=== PATIENT | female | born 1970 | race Caucasian/White ===

== ENCOUNTER 2022-11-30 15:15 | Outpatient (OUT) | payer BC, SELFPAY ==
--- NOTE | 2022-11-30 | XR_ITS ---
The [address] [address] Patient Name: SEVERINO GREER MRN: [id number] date: 1970 Sex: F Assigned Patient Location: [facility] Current Patient Location: [facility] Accession/Order Number: [id number] Exam Date: 11/30/2022 15:35 Report Date: 11/30/2022 16:55 At the request of: TRACIE MALONE Procedure: XR foot LT min 3V EXAM: XR foot LT min 3V HISTORY: left foot pain; M79.672 COMPARISON: None. TECHNIQUE: 3 views of the left foot were obtained. FINDINGS: There is some a subtle nondisplaced fracture involving the neck of the fourth metatarsal bone. There is no other evidence of an acute fracture or dislocation. Is mild narrowing of the first metatarsophalangeal joint and the remainder the joint spaces are relatively intact. No abnormal soft tissue calcification or radiopaque foreign body is identified. IMPRESSION: There appears to be a nondisplaced fracture involving the neck of the fourth metatarsal bone. There is no other evidence of a fracture or dislocation. Mild degenerative changes are seen at the first metatarsophalangeal joint. Remainder the joint spaces are intact. Electronically authenticated by: EUN GILES Date: 11/30/2022 16:55
== END 2022-11-30 15:16 | disposition home or self-care (01) ==
LOC: RAD 15:21
PROVIDERS: PCP Family Medicine; Visit Provider Family Medicine
DX: M79.672 Pain in left foot (principal); S92.345A Nondisplaced fracture of fourth metatarsal bone, left foot, initial encounter for closed fracture
CPT/HCPCS: 73630

== ENCOUNTER 2022-12-08 13:41 | Outpatient (OUT) | payer BC, SELFPAY ==
--- NOTE | 2022-12-08 | XR_ITS ---
The [address] [address] Patient Name: SEVERINO GREER MRN: [id number] date: 1970 Sex: F Assigned Patient Location: Current Patient Location: Accession/Order Number: [id number] Exam Date: 12/08/2022 13:05 Report Date: 12/09/2022 07:18 At the request of: MADHU MANDUJANO Procedure: XR foot LT min 3V PROCEDURE: XR foot LT min 3V COMPARISON: 11/30/2022 HISTORY: LEFT FOOT PAIN FINDINGS: BONES:Calcification of periosteal reaction surrounding the previously identified fourth metatarsal neck fracture. No change in angulation or distraction. No new fracture or dislocation. SOFT TISSUES:Negative. No visible soft tissue swelling. EFFUSION:None visible. OTHER: Negative. IMPRESSION: Stable healing fracture fourth metatarsal neck Electronically authenticated by: LIZZETH BLACKBURN Date: 12/09/2022 07:18
== END 2022-12-08 13:42 | disposition home or self-care (01) ==
LOC: WC 13:41
PROVIDERS: PCP Family Medicine; Visit Provider Physician Assistant
DX: M79.672 Pain in left foot (principal)
CPT/HCPCS: 73630

== ENCOUNTER 2023-01-03 08:42 | Outpatient (OUT) | payer BC, SELFPAY ==
--- NOTE | 2023-01-03 08:46 | XR_ITS ---
[address] [address] Patient Name: SEVERINO GREER MRN: [id number] date: 1970 Sex: F Assigned Patient Location: [facility] Current Patient Location: [facility] Accession/Order Number: [id number] Exam Date: 01/03/2023 09:00 Report Date: 01/03/2023 09:56 At the request of: TRACIE MALONE Procedure: XR DEXA axial skeleton EXAMINATION: XR DEXA axial skeleton, 01/03/2023 9:00 AM EDT HISTORY: Primary Ovarian Failure E28.39 COMPARISON: None. TECHNIQUE: Dual-energy X-ray absorptiometry (DEXA) bone density study performed for the axial skeleton. HISTORY: Primary Ovarian Failure E28.39 FINDINGS: Bone mineral density AP spine L1-L4 measures 1.068 g/sq cm. T score -0.9. WHO classification: Normal Lowest bone mineral density is in the right femoral trochanter measuring 0.644 g/sq cm. T score -1.8. WHO classification: Osteopenia XR/XR DEXA axial skeleton IMPRESSION: Osteopenia. Moderate fracture risk Electronically authenticated by: LIZZETH BLACKBURN Date: 01/03/2023 09:56
== END 2023-01-03 08:43 | disposition home or self-care (01) ==
LOC: RAD 08:42
PROVIDERS: PCP Family Medicine; Visit Provider Family Medicine
DX: E28.39 Other primary ovarian failure (principal); M85.851 Other specified disorders of bone density and structure, right thigh
CPT/HCPCS: 77080

== ENCOUNTER 2023-01-04 14:08 | Outpatient (OUT) | payer BC, SELFPAY ==
--- NOTE | 2023-01-04 14:13 | XR_ITS ---
The [address] [address] Patient Name: SEVERINO GREER MRN: [id number] date: 1970 Sex: F Assigned Patient Location: [facility] Current Patient Location: Accession/Order Number: [id number] Exam Date: 01/04/2023 14:13 Report Date: 01/05/2023 06:31 At the request of: EUN DONOVAN Procedure: XR foot LT min 3V PROCEDURE: XR foot LT min 3V HISTORY: LEFT FOOT PAIN ; follow-up fourth metatarsal fracture COMPARISON: XR foot left 12/08/2022 FINDINGS: BONES:Prominent callus formation surrounding the neck of the fourth metatarsal which remains in normal alignment. Minimal residual fracture line. SOFT TISSUES:No visible soft tissue swelling. EFFUSION:None visible. OTHER: Negative. XR/XR foot LT min 3V IMPRESSION: 1. Stable alignment and ongoing bone healing of the fourth metatarsal fracture. Electronically authenticated by: VINCENT SHIRLEY Date: 01/05/2023 06:31
== END 2023-01-04 14:09 | disposition home or self-care (01) ==
LOC: RAD 14:09
PROVIDERS: PCP Family Medicine; Visit Provider Podiatrist Foot & Ankle Surgery
DX: S92.345A Nondisplaced fracture of fourth metatarsal bone, left foot, initial encounter for closed fracture (principal)
CPT/HCPCS: 73630

== ENCOUNTER 2023-01-17 14:25 | Outpatient (OUT) | payer BC, SELFPAY ==
--- NOTE | 2023-01-17 14:32 | XR_ITS ---
The [address] [address] Patient Name: SEVERINO GREER MRN: [id number] date: 1970 Sex: F Assigned Patient Location: [facility] Current Patient Location: Accession/Order Number: [id number] Exam Date: 01/17/2023 14:52 Report Date: 01/18/2023 05:14 At the request of: EMANUEL CALDERÓN Procedure: XR foot LT min 3V PROCEDURE: XR foot LT min 3V HISTORY: M79.672 ; acute first toe and second metatarsal pain; no known injury; subacute fracture of fourth metatarsal COMPARISON: XR foot left 01/04/2023 FINDINGS: BONES:Prominent callus formation surrounding the neck of the fourth metatarsal at site of prior nondisplaced fracture. Unremarkable first toe and second metatarsal were patient describes pain. No significant degenerative joint disease. SOFT TISSUES:No visible soft tissue swelling. EFFUSION:None visible. OTHER: Negative. XR/XR foot LT min 3V IMPRESSION: 1. No acute or suspicious findings to account for patient's symptoms. 2. Continuing bone healing of prior fourth metatarsal fracture. Electronically authenticated by: VINCENT SHIRLEY Date: 01/18/2023 05:14
== END 2023-01-17 14:26 | disposition home or self-care (01) ==
LOC: RAD 14:29
PROVIDERS: PCP Family Medicine; Visit Provider Nurse Practitioner Family
DX: M79.672 Pain in left foot (principal)
CPT/HCPCS: 73630

== ENCOUNTER 2023-01-24 14:29 | Outpatient (OUT) | payer BC, SELFPAY ==
[2023-01-24 15:00] LABS: Basophils Absolute Auto 0.1 10^3/uL (0.0-0.1); Basophils Percent Auto 1.1 % (0.2-2.0); Eosinophils Absolute Auto 0.1 10^3/uL (0.0-0.7); Eosinophils Percent Auto 1.4 % (0.9-7.0); Hematocrit 45.6 % (36.0-48.0); Immature Granulocytes Pct Auto 1.1 % (0.0-0.5); Lymphocytes Absolute Auto 2.7 10^3/uL (1.2-3.8); Mean Corpuscular HGB Conc 32.9 g/dL (29.9-35.2); Mean Corpuscular Hemoglobin 30.9 pg (26.7-34.0); Mean Platelet Volume 9.7 fL (9.5-13.5); Monocytes Absolute Auto 0.5 10^3/uL (0.3-0.8); Monocytes Percent Auto 6.1 % (1.7-12.0); Neutrophils Absolute Auto 5.2 10^3/uL (1.4-6.5); Neutrophils Percent Auto 59.3 % (43.0-75.0); Platelet Count 367 10^3/uL (150-450); Red Blood Count 4.85 10^6/uL (4.20-5.40); Red Cell Distribution Width 12.6 % (11.0-15.0); White Blood Count 8.8 10^3/uL (4.0-11.0)
[2023-01-24 15:04] LABS: Alanine Aminotransferase 83 U/L (14-59); Albumin Globulin Ratio 1.1; Albumin Level 4.5 g/dL (3.4-5.0); Alkaline Phosphatase 143 U/L (46-116); Anion Gap 15.4; Aspartate Amino Transferase 74 U/L (15-37); BUN Creatinine Ratio 21.6; Bilirubin Total 0.3 mg/dL (0.2-1.0); Calcium 9.5 mg/dL (8.5-10.1); Carbon Dioxide 27.2 mmol/L (21.0-32.0); Chloride 99 mmol/L (98-107); Estimated GFR (African America >60 (>=60); Estimated GFR (Non-African Ame >60 (>=60); Glucose 121 mg/dL (74-106); Potassium 4.6 mmol/L (3.5-5.1); Sodium 137 mmol/L (136-145); Total Protein 8.5 g/dL (6.4-8.2); Uric Acid 6.5 mg/dL (2.6-6.0)
[2023-01-24 15:38] LABS: Erythrocyte Sedimentation Rate 20 mm/hr (<=30)
== END 2023-01-24 14:30 | disposition home or self-care (01) ==
LOC: LAB 14:31
PROVIDERS: PCP Family Medicine; Visit Provider Family Medicine
DX: M10.9 Gout, unspecified (principal)
CPT/HCPCS: 36415; 80053; 84550; 85025; 85652

== ENCOUNTER 2023-01-30 07:33 | Outpatient (OUT) | payer BC, SELFPAY ==
[2023-01-30 08:03] LABS: Ammonia 18 umol/L (11-32)
[2023-01-30 08:09] LABS: INR 0.97; Prothrombin Time 10.3 sec (9.0-11.6)
[2023-01-30 08:36] LABS: Alanine Aminotransferase 71 U/L (14-59); Albumin Globulin Ratio 1.1; Alkaline Phosphatase 115 U/L (46-116); Aspartate Amino Transferase 25 U/L (15-37); Bilirubin Direct 0.1 mg/dL (0.0-0.2); Bilirubin Total 0.5 mg/dL (0.2-1.0); Globulin 3.7 g/dL; Total Protein 7.7 g/dL (6.4-8.2)
[2023-01-31 05:07] LABS: HBsAg Screen Negative (Negative); HCV Ab Non Reactive (Non Reactive); Hep A Ab, IgM Negative (Negative); Hep B Core Ab, IgM Negative (Negative)
== END 2023-01-30 07:34 | disposition home or self-care (01) ==
LOC: LAB 07:34
PROVIDERS: PCP Family Medicine; Visit Provider Family Medicine
DX: R79.89 Other specified abnormal findings of blood chemistry (principal)
CPT/HCPCS: 36415; 80074; 80076; 82140; 85610; 85730

== ENCOUNTER 2023-12-18 16:14 | Outpatient (OUT) | payer BC, SELFPAY ==
--- NOTE | 2023-12-18 16:22 | XR_ITS ---
The [address] [address] Patient Name: SEVERINO GREER MRN: [id number] date: 1970 Sex: F Assigned Patient Location: [facility] Current Patient Location: Accession/Order Number: [id number] Exam Date: 12/18/2023 16:22 Report Date: 12/19/2023 13:33 At the request of: TRACIE MALONE Procedure: XR foot RT 2V PROCEDURE: XR foot RT 2V COMPARISON: None. HISTORY: Right foot pain M79.671 FINDINGS: BONES:No acute fracture or dislocation. Moderate to severe degenerative changes first metatarsal-phalangeal joint and fifth proximal interphalangeal joint SOFT TISSUES:Negative. No visible soft tissue swelling. EFFUSION:None visible. OTHER: Negative. XR/XR foot RT 2V IMPRESSION: Moderate to severe osteoarthritis first metatarsal-phalangeal and fifth proximal interphalangeal joints Electronically authenticated by: LIZZETH BLACKBURN Date: 12/19/2023 13:33
== END 2023-12-18 16:15 | disposition home or self-care (01) ==
LOC: RAD 16:16
PROVIDERS: PCP Family Medicine; Visit Provider Family Medicine
DX: M79.671 Pain in right foot (principal); M19.071 Primary osteoarthritis, right ankle and foot
CPT/HCPCS: 73620

== ENCOUNTER 2023-12-27 14:26 | Outpatient (OUT) | payer BC, SELFPAY ==
--- NOTE | 2023-12-27 | XR_ITS ---
The [address] [address] Patient Name: SEVERINO GREER MRN: [id number] date: 1970 Sex: F Assigned Patient Location: Current Patient Location: Accession/Order Number: [id number] Exam Date: 12/27/2023 14:26 Report Date: 12/28/2023 07:42 At the request of: EUN DONOVAN Procedure: XR foot RT min 3V PROCEDURE: XR foot RT min 3V COMPARISON: 12/18/2023 HISTORY: RIGHT FOOT PAIN FINDINGS: BONES:No acute fracture or dislocation. Progression of degenerative osteoarthritis with [id number] articulation and remodeling of the first metatarsal-phalangeal joint. Degenerative change also noted at the fifth proximal interphalangeal joint SOFT TISSUES:Negative. No visible soft tissue swelling. EFFUSION:None visible. OTHER: Negative. XR/XR foot RT min 3V IMPRESSION: Severe first metatarsal-phalangeal joint osteoarthritis Electronically authenticated by: LIZZETH BLACKBURN Date: 12/28/2023 07:42
== END 2023-12-27 14:27 | disposition home or self-care (01) ==
LOC: EC 14:26
PROVIDERS: PCP Family Medicine; Visit Provider Podiatrist Foot & Ankle Surgery
DX: M79.671 Pain in right foot (principal); M19.071 Primary osteoarthritis, right ankle and foot
CPT/HCPCS: 73630

== ENCOUNTER 2024-02-23 14:29 | Outpatient (OUT) | payer BC, SELFPAY ==
--- NOTE | 2024-02-23 14:36 | XR_ITS ---
The [address] [address] Patient Name: SEVERINO GREER MRN: [id number] date: 1970 Sex: F Assigned Patient Location: [facility] Current Patient Location: [facility] Accession/Order Number: [id number] Exam Date: 02/23/2024 14:40 Report Date: 02/26/2024 15:42 At the request of: TRACIE MALONE Procedure: XR cervical spine 2-3V EXAMINATION: XR cervical spine 2-3V HISTORY: Cervical radiculopathy 54.12 COMPARISON: No relevant comparison available. FINDINGS: BONES: 2 mm retrolisthesis of C5. Moderate spondylosis and facet osteoarthropathy DISC SPACES: Disc collapse C5-C6 PARASPINOUS: Negative. No paraspinous abnormality is seen. OTHER: Negative. XR/XR cervical spine 2-3V IMPRESSION: Moderate degenerative changes with retrolisthesis of C5 Electronically authenticated by: LIZZETH BLACKBURN Date: 02/26/2024 15:42
--- NOTE | 2024-02-23 14:36 | XR_ITS ---
The [address] [address] Patient Name: SEVERINO GREER MRN: [id number] date: 1970 Sex: F Assigned Patient Location: [facility] Current Patient Location: [facility] Accession/Order Number: [id number] Exam Date: 02/23/2024 14:40 Report Date: 02/28/2024 06:20 At the request of: TRACIE MALONE Procedure: XR shoulder RT min 2V PROCEDURE: XR shoulder RT min 2V HISTORY: Cervical radiculopathy 54.12 ; chronic neck pain; lump on right shoulder for 2 weeks COMPARISON: None. FINDINGS: BONES:Narrowing of the acromioclavicular joint with prominent degenerative osteophyte projecting cephalad from the distal margin of the clavicle. SOFT TISSUES:Skin surface contour deformity overlying the acromioclavicular joint and marked with a skin surface marker. EFFUSION:None visible. OTHER: Negative. XR/XR shoulder RT min 2V IMPRESSION: 1. Patient's palpable lump corresponds to a large degenerative osteophyte projecting cephalad from the distal clavicle at the acromioclavicular joint. Electronically authenticated by: VINCENT SHIRLEY Date: 02/28/2024 06:20
--- OUTSIDE RECORDS SUMMARY | 2024-02-23 14:39 | XMS_ITS | CCD ---
Author Organization [facility] Care Team Providers Care Horse Racing Manager Name Role Phone DR TRACIE MARS Attending Unavailable DR TRACIE MARS Consulting Unavailable DR TRACIE MARS Primary Care Unavailable DR TRACIE MARS Admitting Unavailable Lili Eaton Unavailable Medications Current Medications Medication Drug Class(es) Dates Sig (Normalized) Sig (Original) alendronic acid 70 mg oral tablet (1 source) Bisphosphonate take 1 tablet by mouth once daily Fosamax 70 MG 1 tablet 30 minutes before the first food, beverage or medicine of the day with plain water Orally Active methylPREDNISolone 4 mg oral tablet (1 source) Corticosteroid Start: 3 methylPREDNISolone 4 MG as directed Orally Jan, Active Completed/Discontinued Medications Medication Drug Class(es) Dates Sig (Normalized) Sig (Original) amoxicillin 875 mg / clavulanate 125 mg oral tablet (1 source) Penicillin-class Antibacterial Start: 09-04-2021 take 1 tablet by mouth every twelve hours Amoxicillin-Pot Clavulanate 875-125 MG 1 tablet Orally every 12 hrs for 10 day(s) Sep, Not-Taking fluticasone propionate 0.05 mg/actuat metered dose nasal spray (1 source) Corticosteroid Start: 09-04-2021 take 2 spray(s) nasal route once daily Fluticasone Propionate 50 MCG/ACT 2 sprays Nasally Once a day for 14 day(s) Sep, Not-Taking predniSONE 20 mg oral tablet (1 source) Start: 09-04-2021 take 1 tablet by mouth every twelve hours predniSONE 20 MG 1 tablet Orally bid for 5 day(s) Sep, Not-Taking Problems Problem Classification Problem Date Documented Da te Episodic/Chronic Conditions associated with dizziness or vertigo (4 sources) Other peripheral vertigo, unspecified ear; Translations: [OTHER PERIPHERAL VERTIGO UNS EAR] Onset: 02-03-2022 Episodic Deficiency and other anemia (1 source) Anemia, unspecified; Translations: [ANEMIA UNSPECIFIED] Onset: 02-04-2022 Episodic Diabetes mellitus without complication (1 source) Other abnormal glucose; Translations: [OTHER ABNORMAL GLUCOSE] Onset: 02-04-2022 Episodic Other connective tissue disease (1 source) Pain in left foot Episodic Syncope (1 source) Syncope and collapse; Translations: [SYNCOPE AND COLLAPSE] Onset: 02-04-2022 Episodic Results Test Name Value Interpretation Reference Range Facility INSULINon 02-04-2022 Insulin 22.5 uIU/mL Normal 2.6-24.9 [facility] Comment on above: Performed By: #### I NSULIN #### [facility] [address] [place] [address] Dr. Tessa Jackson T4, T3U, FTI LABCORPon 02-04 Free Thyroxine Index 1.5 Normal 1.2-4.9 [facility] Comment on above: Performed By: #### T HYLC #### [facility] [address] [place] [address] Dr. Tessa Jackson T3 Uptake 27 % Normal 24-39 [facility] Comment on above: Performed By: #### T HYLC #### [facility] [address] [place] [address] Dr. Tessa Jackson T4 [Mass/Vol] 5.7 ug/dL Normal 4.5-12.0 [facility] Comment on above: Performed By: #### T HYLC #### [facility] [address] [place] [address] Dr. Tessa Jackson CBC AUTO DIFFon 02-03-2022 BASO # 0.0 103/ul Normal 0.0-0.1 [facility] Comment on above: Performed By: #### C BC #### [facility] [address] [place] [address] Dr. Tessa Jackson Basophils/100 WBC (Bld) 0.1 % Critically low 0.2-2.0 [facility] Comment on above: Performed By: #### C BC #### [facility] [address] [place] [address] Dr. Tessa Jackson EO # 0.0 103/ul Normal 0.0-0.7 [facility] Comment on above: Performed By: #### C BC #### [facility] [address] [place] [address] Dr. Tessa Jackson Eosinophils/100 WBC (Bld) 0.0 % Critically low 0.9-7.0 [facility] Comment on above: Performed By: #### C BC #### [facility] [address] [place] [address] Dr. Tessa Jackson Erythrocyte distribution width (RBC) [Ratio] 13.1 % Normal 11.0-15.0 [facility] Comment on above: Performed By: #### C BC #### [facility] [address] [place] [address] Dr. Tessa Jackson Hematocrit (Bld) [Volume fraction] 40.7 % Normal 36.0-48.0 [facility] Comment on above: Performed By: #### C BC #### [facility] [address] [place] [address] Dr. Tessa Jackson Hemoglobin (Bld) [Mass/Vol] 13.5 g/dL Normal 12.0-16.0 [facility] Comment on above: Performed By: #### C BC #### [facility] [address] [place] [address] Dr. Tessa Jackson IG # 0.03 10e3/ul Normal 0.00-0.03 [facility] Comment on above: Performed By: #### C BC #### [facility] [address] [place] [address] Dr. Tessa Jackson IG % 0.4 % Normal 0.0-0.5 [facility] Comment on above: Performed By: #### C BC #### [facility] [address] [place] [address] Dr. Tessa Jackson LYMPH # 1.0 103/ul Critically low 1.2-3.8 [facility] Comment on above: Performed By: #### C BC #### [facility] [address] [place] [address] Dr. Tessa Jackson Lymphocytes/100 WBC (Bld) 14.4 % Critically low 20.5-60.0 [facility] Comment on above: Performed By: #### C BC #### [facility] [address] [place] [address] Dr. Tessa Jackson MANUAL DIFF REQ NO Normal [facility] Comment on above: Performed By: #### C BC #### [facility] [address] [place] [address] Dr. Tessa Jackson MCH (RBC) [Entitic mass] 30.8 pg Normal 26.7-34.0 [facility] Comment on above: Performed By: #### C BC #### [facility] [address] [place] [address] Dr. Tessa Jackson MCHC (RBC) [Mass/Vol] 33.2 g/dL Normal 29.9-35.2 [facility] Comment on above: Performed By: #### C BC #### [facility] [address] [place] [address] Dr. Tessa Jackson MCV (RBC) [Entitic vol] 92.7 fL Normal 81.0-99.0 [facility] Comment on above: Performed By: #### C BC #### [facility] [address] [place] [address] Dr. Tessa Jackson MONO # 0.4 103/ul Normal 0.3-0.8 [facility] Comment on above: Performed By: #### C BC #### [facility] [address] [place] [address] Dr. Tessa Jackson Monocytes/100 WBC (Bld) 5.6 % Normal 1.7-12.0 [facility] Comment on above: Performed By: #### C BC #### [facility] [address] [place] [address] Dr. Tessa Jackson NEUT # 5.6 103/ul Normal 1.4-6.5 [facility] Comment on above: Performed By: #### C BC #### [facility] [address] [place] [address] Dr. Tessa Jackson Neutrophils/100 WBC (Bld) 79.5 % Critically high 43.0-75.0 [facility] Comment on above: Performed By: #### C BC #### [facility] [address] [place] [address] Dr. Tessa Jackson Platelet mean volume (Bld) [Entitic vol] 9.6 fL Normal 9.5-13.5 [facility] Comment on above: Performed By: #### C BC #### [facility] [address] [place] [address] Dr. Tessa Jackson PLT 298 103/ul Normal 150-450 [facility] Comment on above: Performed By: #### C BC #### [facility] [address] [place] [address] Dr. Tessa Jackson RBC 4.39 106/ul Normal 4.20-5.40 [facility] Comment on above: Performed By: #### C BC #### [facility] [address] [place] [address] Dr. Tessa Jackson WBC 7.1 103/ul Normal 4.0-11.0 [facility] Comment on above: Performed By: #### C BC #### [facility] [address] [place] [address] Dr. Tessa Jackson CRPon 02-03-2022 CRP [Mass/Vol] mg/L Normal <=1.0 [facility] Comment on above: Performed By: #### C MP, CRP, LIPID, TSH #### [facility] [address] [place] [address] Dr. Tessa Jackson GLYCOHEMOGLOBIN A1Con 2021 ADA RECOMMENDATION SEE BELOW Normal [facility] Comment on above: Result Comment: ADA RECOMMENDED LIMIT 4.0 - 6.0 ADA THERAPEUTIC TARGET < 7.0 ACTION SUGGESTED > 7.0 Performed By: #### A 1C #### [facility] [address] [place] [address] Dr. Tessa Jackson Glucose [Mass/Vol] 126 mg/dL Normal [facility] Comment on above: Performed By: #### A 1C #### [facility] [address] [address] [address] Tessa Jackson HbA1c (Bld) [Mass fraction] 6.0 % Normal 4.5-6.2 [facility] Comment on above: Performed By: #### A 1C #### [facility] [address] [address] [address] Tessa Jackson IRONon 02-03-2022 Iron [Mass/Vol] 92.0 ug/dL Normal 50.0-170.0 [facility] Comment on above: Performed By: #### I KATE #### [facility] [address] [address] [address] Tessa Jackson LIPID PROFILEon 02-03-2022 CHOL-HDL RATIO NORM SEE BELOW Normal [facility] Comment on above: Result Comment: 3.3 - 4.4 LOW RISK 4.4 - 7.1 AVERAGE RISK 7.1 - 11.0 MODERATE RISK >11.0 HIGH RISK Performed By: #### C MP, CRP, LIPID, TSH #### [facility] [address] [address] [address] Tessa Jackson Cholesterol [Mass/Vol] 385 mg/dL Critically high <=200 [facility] Comment on above: Performed By: #### C MP, CRP, LIPID, TSH #### [facility] [address] [address] [address] Tessa Jackson Cholesterol in HDL [Mass/Vol] 136 mg/dL Critically high 40-60 [facility] Comment on above: Performed By: #### C MP, CRP, LIPID, TSH #### [facility] [address] [address] [address] Tessa Jackson Cholesterol in LDL [Mass/Vol] 226.6 mg/dL Normal [facility] Comment on above: Performed By: #### C MP, CRP, LIPID, TSH #### [facility] [address] [address] [address] Tessa Jackson Cholesterol.total/Ch olesterol in HDL [Mass ratio] 2.8 {ratio} Normal [facility] Comment on above: Performed By: #### C MP, CRP, LIPID, TSH #### [facility] [address] [address] [address] Tessa Jackson HDL NORMAL > or = 60 mg/dl - LO W CARDIOVASCULAR RISK <40 mg/dl - HIGH CARDIOVASCULAR RISK Normal [facility] Comment on above: Performed By: #### C MP, CRP, LIPID, TSH #### [facility] [address] [address] [address] Tessa Jackson LDL CALC NORMAL SEE BELOW Normal [facility] Comment on above: Result Comment: <100 mg/dl OPTIMAL 100 - 129 mg/dl NEAR OR ABOVE OPTIMAL 130 - 159 mg/dl BORDERLINE HIGH 160 - 189 mg/dl HIGH >190 mg/dl VERY HIGH Performed By: #### C MP, CRP, LIPID, TSH #### [facility] [address] [address] [address] Tessa Jackson Triglyceride [Mass/Vol] 112 mg/dL Normal <=150 [facility] Comment on above: Performed By: #### C MP, CRP, LIPID, TSH #### [facility] [address] [address] [address] Tessa Jackson VLDL CALC 22.4 mg/dL Normal [facility] Comment on above: Performed By: #### C MP, CRP, LIPID, TSH #### [facility] [address] [address] [address] Tessa Jackson PROF 14(COMP METB)on 022 Albumin [Mass/Vol] 4.0 g/dL Normal 3.4-5.0 [facility] Comment on above: Performed By: #### C MP, CRP, LIPID, TSH #### [facility] [address] [address] [address] Tessa Jackson Albumin/Globulin [Mass ratio] 1.0 {ratio} Normal [facility] Comment on above: Performed By: #### C MP, CRP, LIPID, TSH #### [facility] [address] [place] [address] Dr. Tessa Jackson ALP [Catalytic activity/Vol] 139 U/L Critically high 46-116 [facility] Comment on above: Performed By: #### C MP, CRP, LIPID, TSH #### [facility] [address] [address] [address] Tessa Jackson ALT [Catalytic activity/Vol] 86 U/L Critically high 14-59 [facility] Comment on above: Performed By: #### C MP, CRP, LIPID, TSH #### [facility] [address] [address] [address] Tessa Jackson Anion gap [Moles/Vol] 14.8 mmol/L Normal [facility] Comment on above: Performed By: #### C MP, CRP, LIPID, TSH #### [facility] [address] [address] [address] Tessa Jackson AST [Catalytic activity/Vol] 23 U/L Normal 15-37 [facility] Comment on above: Performed By: #### C MP, CRP, LIPID, TSH #### [facility] [address] [place] [address] Dr. Tessa Jackson Bilirubin [Mass/Vol] 0.4 mg/dL Normal 0.2-1.0 [facility] Comment on above: Performed By: #### C MP, CRP, LIPID, TSH #### [facility] [address] [address] [address] Tessa Jackson Calcium [Mass/Vol] 10.0 mg/dL Normal 8.5-10.1 [facility] Comment on above: Performed By: #### C MP, CRP, LIPID, TSH #### [facility] [address] [address] [address] Tessa Jackson Chloride [Moles/Vol] 100 mmol/L Normal 98-107 [facility] Comment on above: Performed By: #### C MP, CRP, LIPID, TSH #### [facility] [address] [address] [address] Tessa Jackson CO2 [Moles/Vol] 28.0 mmol/L Normal 21.0-32.0 [facility] Comment on above: Performed By: #### C MP, CRP, LIPID, TSH #### [facility] [address] [address] [address] Tessa Jackson Creatinine [Mass/Vol] 0.95 mg/dL Normal 0.55-1.02 [facility] Comment on above: Performed By: #### C MP, CRP, LIPID, TSH #### [facility] [address] [place] [address] Dr. Tessa Jackson EGFR-AF GEORGIAN >60 Normal >=60 [facility] Comment on above: Performed By: #### C MP, CRP, LIPID, TSH #### [facility] [address] [place] [address] Dr. Tessa Jackson EGFR-NON AF GEORGIAN >60 Normal >=60 [facility] Comment on above: Performed By: #### C MP, CRP, LIPID, TSH #### [facility] [address] [place] [address] Dr. Tessa Jackson Globulin (S) [Mass/Vol] 3.9 g/dL Normal [facility] Comment on above: Performed By: #### C MP, CRP, LIPID, TSH #### [facility] [address] [place] [address] Dr. Tessa Jackson Glucose [Mass/Vol] 127 mg/dL Critically high 74-106 [facility] Comment on above: Performed By: #### C MP, CRP, LIPID, TSH #### [facility] [address] [place] [address] Dr. Tessa Jackson Potassium [Moles/Vol] 4.8 mmol/L Normal 3.5-5.1 [facility] Comment on above: Performed By: #### C MP, CRP, LIPID, TSH #### [facility] [address] [place] [address] Dr. Tessa Jackson Protein [Mass/Vol] 7.9 g/dL Normal 6.4-8.2 [facility] Comment on above: Performed By: #### C MP, CRP, LIPID, TSH #### [facility] [address] [place] [address] Dr. Tessa Jackson Sodium [Moles/Vol] 138 mmol/L Normal 136-145 [facility] Comment on above: Performed By: #### C MP, CRP, LIPID, TSH #### [facility] [address] [address] [address] Tessa Jackson Urea nitrogen [Mass/Vol] 14.0 mg/dL Normal 7.0-18.0 [facility] Comment on above: Performed By: #### C MP, CRP, LIPID, TSH #### [facility] [address] [address] [address] Tessa Jackson Urea nitrogen/Creatinine [Mass ratio] 14.7 mg/mg Normal [facility] Comment on above: Performed By: #### C MP, CRP, LIPID, TSH #### [facility] [address] [address] [address] [facility] 28 mm/hr Normal <=30 [facility] Comment on above: Performed By: #### S EDR #### [facility] [address] [place] [address] Dr. Tessa Jackson TSHon 02-03-2022 TSH 0.639 uIU/mL Normal 0.358-3.740 [facility] Comment on above: Performed By: #### C MP, CRP, LIPID, TSH #### [facility] [address] [address] [address] Tessa Jackson Coding Summary.on 04-10-2019 Coding Summary. CODING DATE: 019 [facility] STATUS: Home (Routine DC) PAYOR: [facility] [place] ADMIT DX: REASON FOR VISIT DX: M54.2 Cervicalgia FINAL DX: PRINCIPAL: M50.20 Other cervical disc displacement, unspecified cervical region SECONDARY: M54.12 Radiculopathy, cervical region PROCEDURES DOCTOR NAME DATE NOTE: The code number assigned matches the documented diagnosis and / or procedure in the patient's chart. However, the narrative phrase printed from the coding software may appear abbreviated, or result in slightly different terminology. Coded By: Denise Garcia CphT Date Saved: 04/10/2019 07:12 am Normal [facility] Consultation Noteon 04-10-20 19 Consultation Note HOSPITAL REGULATIONS : ALL Positive Important Negative Findings Shall Be Recorded. Date of 04/02/2019 Consultation: Attending Tracie M. Hoy, M.D. Physician: Consulting Chauncey Alicea M.D. Physician: FOLLOWUP VISIT CHIEF COMPLAINT: Neck pain. HISTORY OF PRESENT ILLNESS: A 48-year-old female with a history of cervical disc displacement, cervical radiculitis following up from her second cervical epidural steroid injection at C6-C7. On 03/18/2019, she has ongoing 60% relief from the second injection and 20% additional relief from the first. She feels quite well. Her pain ranges from a 1-4/10 on the visual analog scale. It is centered just at the spinous process around C7. It no longer radiates to her arms. She feels quite well and she reports no apparently complications from the procedure. Past medical history, family history, surgical history, social history, medication list, allergies and a complete review of systems were obtained and reviewed. Pertinent findings are noted in the HISTORY OF PRESENT ILLNESS. PHYSICAL EXAMINATION: No acute distress. Alert and oriented x3. Injection site is healed. She is tender just between the C6-C7 and spinous processes to palpation. Palpation does reproduce her pain. There is intact strength throughout bilateral upper and lower extremities. Normal gait. Negative Preet sign bilaterally. ASSESSMENT/PLAN: A 48-year-old female with history of cervical disc displacement, cervical radiculitis, now resolved following the epidural steroid injection. She continues to have some myofascial pain between the spinous processes. I suggested to patient she speak with her massotherapist to work on that area. Another option would be a trigger point injection if the massotherapy is not effective. The patient agrees with plan of care. She will followup as needed and continue her home exercise program. She was invited to call the clinic with any questions or concerns. Chauncey Alicea M.D. gls Dictated: 04/02/2019 #[id number] Typed: 04/08/2019 #[id number] cc: Jaden Fritz M.D. [facility] Comment on above: Result Comment: Elec tronically Signed By: Deanne QUINTERO, Chauncey Moncada\.br\Date and Time Signed: 04/10/19 09:50 EST Coding Summary.on 03-20-2019 Coding Summary. CODING DATE: 019 FINAL [facility] STATUS: Home (Routine DC) PAYOR: [facility] [place] ADMIT DX: REASON FOR VISIT DX: M50.10 Cervical disc disorder with radiculopathy, unspecified cervical region FINAL DX: PRINCIPAL: M50.10 Cervical disc disorder with radiculopathy, unspecified cervical region SECONDARY: PROCEDURES DOCTOR NAME DATE NOTE: The code number assigned matches the documented diagnosis and / or procedure in the patient's chart. However, the narrative phrase printed from the coding software may appear abbreviated, or result in slightly different terminology. Coded By: Charlotte Verduzco Date Saved: 03/20/2019 03:38 pm Normal [facility] Coding Summary.on 03-19-2019 Coding Summary. CODING DATE: 019 FINAL [facility] STATUS: Home (Routine DC) PAYOR: [facility] [place] APC DESCRIPTION 5442 Level 2 Nerve Injections ADMIT DX: REASON FOR VISIT DX: M50.123 Cervical disc disorder at C6-C7 level with radiculopathy FINAL DX: PRINCIPAL: M50.123 Cervical disc disorder at C6-C7 level with radiculopathy SECONDARY: PYMT PROC APC STAT DESCRIPTION DOCTOR NAME DATE NOTE: The code number assigned matches the documented diagnosis and / or procedure in the patient's chart. However, the narrative phrase printed from the coding software may appear abbreviated, or result in slightly different terminology. Coded By: Joan Trujillo Date Saved: 03/19/2019 08:43 am Normal [facility] Consultation Noteon 03-19-20 Consultation Note HOSPITAL REGULATIONS : ALL Positive Important Negative Findings Shall Be Recorded. Date of 03/11/2019 Consultation: Attending Tracie Mars M.D. Physician: Consulting Chauncey Alicea M.D. Physician: FOLLOWUP VISIT CHIEF COMPLAINT: Right-sided neck pain. HISTORY OF PRESENT ILLNESS: A 48-year-old female with a history of cervical disc displacement, cervical radiculitis following up from her first epidural steroid injection at C6-C7. She reports complete resolution of the numbness and tingling into the arms. She still has axial neck pain. She is here to discuss further treatment options. Her pain ranges from a 3-7/10 on the visual analog scale. Since her last visit, she was treated for an appendicitis with an appendectomy. She is recovering well from that surgery. She is back to work which seems to exacerbate her pain. The patient is here to discuss further treatment options. She denies any loss of bowel or bladder function, fevers, chills, stumbling or falling. She denies any apparent complications from the injection. Past medical history, family history, surgical history, social history, medication list, allergies and a complete review of systems were obtained and reviewed. Pertinent findings are noted in the HISTORY OF PRESENT ILLNESS. PHYSICAL EXAMINATION: No acute distress. Alert and oriented x3. There is diffuse tenderness in the right cervical paraspinal muscles. No gross deformity or asymmetry. Full range of motion of the right shoulder without pain. Neurologic examination 5/5 strength throughout bilateral upper and lower extremities. Negative Preet sign bilaterally. Normal gait. 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 There has been some improvement from the first epidural steroid injection. The patient and I discussed potential treatment options which include repeating the epidural steroid injection to hopefully achieve further relief as well as seeking surgical intervention. The patient would like to try to avoid surgery if possible and would like to exhaust her conservative options. Therefore, we will proceed with a second cervical epidural steroid injection. A detailed description of the procedure including its risks, benefits and alternatives were discussed with the patient. She wishes to proceed. Follow up two weeks after the injection to assess response. Chauncey Alicea M.D. gls Dictated: 03/11/2019 #[id number] Typed: 03/13/2019 #[id number] cc: Jaden Fritz M.D. [facility] Comment on above: Result Comment: Elec tronically Signed By: Chauncey Alicea MD\.br\Date and Time Signed: 03/19/19 08:22 EDT Main OR Intraoperative Recor don 03-18-2019 Main OR Intraoperative Record IntraOp Document Type [facility] Summary Primary Physician: Chauncey Alicea MD Finalized Date/Time: 03/18/19 08:19:23 Pt. Name: PERCY SEVERINO Trang MurilloB./Sex: 1970 Female Med Rec #: [id number] Physician: Chauncey Alicea MD Financial #: [id number] Pt. Type: P Room/Bed: / Admit/Disch: 03/18/19 07:41:51 - Institution: Case Times FTPM Entry 1 Patient Times In Room 03/18/19 08:12:00 Out Room 03/18/19 08:21:00 Procedure Times Start 03/18/19 08:16:00 Stop 03/18/19 08:19:00 Anesthesia Times Start 03/18/19 08:12:00 Stop 03/18/19 08:21:00 Last Modified By: Murali RN, Zhang 03/18/19 08:19:10 Case Attendance FTPM Entry 1 Entry 2 Entry 3 Case Attendee Steven FLORIAN, Anuradha Alicea MD, Chauncey Carrion RN, Zhang Role Performed Anesthesiologist of Surgeon - Primary Substance Abuse Counselor - Primary Record Time In 03/18/19 08:12:00 03/18/19 08:12:00 03/18/19 08:12:00 Time Out 03/18/19 08:21:00 03/18/19 08:21:00 03/18/19 08:21:00 Procedure CERVICAL EPIDURAL CERVICAL EPIDURAL CERVICAL EPIDURAL STEROID INJECTION(.) STEROID INJECTION(.) STEROID INJECTION(.) Comments SUPERVISED PER DR. WARD Last Modified By: Murali RN, Zhang Carrion RN, Zhang Carrion RN, Zhang 03/18/19 08:19:12 03/18/19 08:19:12 03/18/19 08:19:12 Entry 4 Entry 5 Entry 6 Case Attendee Galvez RN, Susana Argueta RN, Yuliya Montague RT(R), Ira Role Performed Scrub - Primary Scrub - Other Business Rules Analyst Time In 03/18/19 08:12:00 03/18/19 08:12:00 03/18/19 08:12:00 Time Out 03/18/19 08:21:00 03/18/19 08:21:00 03/18/19 08:21:00 Procedure CERVICAL EPIDURAL CERVICAL EPIDURAL CERVICAL EPIDURAL STEROID INJECTION(.) STEROID INJECTION(.) STEROID INJECTION(.) Comments Last Modified By: Murali RN, Zhang Carrion RN, Zhang Carrion RN, Zhang 03/18/19 08:19:12 03/18/19 08:19:12 03/18/19 08:19:12 Perioperative Protocols FTPM Pre-Care Text: Implements protective measures prior to operative or invasive procedure, confirms identity before the operative or invasive procedure, verifies operative procedure, surgical site, and laterality Entry 1 Procedure(s) CERVICAL EPIDURAL Patient Identity Birthday, ID Band STEROID INJECTION(.) Verified (select at Check, Patient least 2): Participation Consents / H and P Anesthesia Consent, Operative Site Present Verified HandP, Surgery/Procedure Marking Verified Consent Surgical Site Yes Laterality Verified Yes Verified Procedure Verified Yes Correct Patient Yes Position Verified Availability Equipment, Medication, Prep Dry Yes Verified (If X-ray Applicable) PreOp Antibiotic No Time Out Steven FLORIAN, Anuradha C, Given Participants Zhang Carrion RN, Ward RN, Deanne Griffith MD, Eddi Mahajan RT(R), Kendall Roth RN, Yuliya Morrison Time Out Complete 03/18/19 08:14:00 Outcomes Met? Yes Last Modified By: Zhang Carrion RN 03/18/19 08:14:05 Post-Care Text: The patient is free from signs and symptoms of injury caused by extraneous objects Allergy Information FTPM Pre-Care Text: Verifies allergies Entry 1 Allergies Reviewed? Yes Allergies Reviewed Self/Patient With Outcomes Met? Yes Last Modified By: Zhang Carrion RN 03/18/19 07:51:04 Post-Care Text: The patient received appropriate medication(s) safely administered during the perioperative period Surgical Procedures FTPM Entry 1 Procedure Description Procedure CERVICAL EPIDURAL Modifiers . STEROID INJECTION Surgeon Description C6/7 Primary Procedure Yes Primary Surgeon Deanne QUINTERO, Chauncey Moncada Start 03/18/19 08:16:00 Stop 03/18/19 08:19:00 Anesthesia Type MAC Surgical Service Pain Management Wound Class 1 - Clean Last Modified By: Zhang Carrion RN 03/18/19 08:19:19 General Case Data FTPM Pre-Care Text: Classifies surgical wound, implements aseptic technique, initiates traffic control Entry 1 Case Information OR Pain Proc Room Case Level Level 2 Wound Class 1 - Clean Specialty Pain Management ASA Class 2 Preop Diagnosis M50.20 Postop Same As Preop Yes Postop Diagnosis M50.20 Outcomes Met? Yes Last Modified By: Zhang Carrion RN 03/18/19 08:19:22 Post-Care Text: The patient is free from signs and symptoms of infection Skin Assessment (Pre Procedure) FTPM Pre-Care Text: Implements protective measures to prevent skin/ tissue injury due to thermal or mechanical sources Evaluates for signs and symptoms of physical injury to skin and tissue Entry 1 Skin Integrity Intact, Stanley, Warm, and Skin Abnormality No Dry Outcomes Met? Yes Last Modified By: Zhang Carrion RN 03/18/19 08:13:52 Post-Care Text: The patient is free from signs and symptoms of injury caused by extraneous objects Patient Positioning FTPM Pre-Care Text: Identifies physical alterations that require additional precautions for procedure-specific positioning, verifies presence of prosthetics or corrective devices, positions the patient, evaluates the patient for signs and symptoms of injury as a result of positioning Entry 1 Procedure CERVICAL EPIDURAL Body Position Prone STEROID INJECTION(.) Feet Uncrossed? Yes Left Arm Position Resting at Side Right Arm Position Resting at Side Left Leg Position Extended Right Leg Position Extended Positioning Device Pillow Under Head Large, Safety Strap, Pillow Large Under Knees Press Points Checked Yes By Zhang Carrion RN, Anuradha Wilson Christman RT(R)Ira Outcomes Met? Yes Last Modified By: Zhang Carrion RN 03/18/19 08:11:09 Post-Care Text: The patient is free from signs and symptoms of injury related to positioning Transport To OR FT Pre-Care Text: Transports according to individual needs. Evaluates for signs and symptoms of skin and tissue injury as a result of transfer or transport Entry 1 Via Cart By Zhang Carrion RN Safety Precautions Safety Strap, Side Outcomes Met? Yes Rails Up Last Modified By: Zhang Carrion RN 03/18/19 07:51:41 Post-Care Text: The patient is free from signs and symptoms of injury related to transfer/transport Skin Prep FTPM Pre-Care Text: Performs skin preparations Entry 1 Procedure CERVICAL EPIDURAL Prep Area BLOCK INJECTION SITE STEROID INJECTION(.) Prep Agents Chloraprep/Dry Prior to Start Dry Time 03/18/19 08:12:00 Draping Stop Dry Time 03/18/19 08:15:00 Hair Removal Methods Not Indicated By Susana Galvez RN Outcomes Met? Yes Last Modified By: Zhang Carrion RN 03/18/19 08:13:44 Post-Care Text: The patient is free from signs and symptoms of infection Departure From OR FTPM Pre-Care Text: Transports according to individual needs. Evaluates for signs and symptoms of skin and tissue injury as a result of transfer or transport. Entry 1 Via Cart Safety Precautions Safety Strap, Side Rails Up PostOp Destination PACU Transported By Zhang Carrion RN Patient Status Stable Skin. Condition Dry, Intact Airway Maintenance Oxygen in Use? No Outcomes Met? Yes Last Modified By: Zhang Carrion RN 03/18/19 08:11:23 Post-Care Text: The patient is free from signs and symptoms of injury related to transfer/transport General Comments: REPORT GIVEN TO PACU NURSE Dressing/Packing FTPM Pre-Care Text: Administers care to wound sites Entry 1 Type Dressing Site and Details OPSITE AND 2X2 TO INJECTION SITE Outcomes Met? Yes Last Modified By: Zhang Carrion RN 03/18/19 08:11:46 Post-Care Text: The patient is free from signs and symptoms of infection Medication Administration FTPM Pre-Care Text: Verifies allergies, administers prescribed medications and solutions, administers prescribed antibiotic therapy and immunizing agents as ordered, evaluates response to medications Administers prescribed medications and solutions Entry 1 Medication methylPREDNISolone 40 Route of Admin Block mg/mL Inj Susp [F] Expiration Date Yes Ordered By Chauncey Alicea MD Verified Transcribed/To Zhang Carrion RN Administered By Chauncey Alicea MD Field By Outcomes Met? Yes Last Modified By: Zhang Carrion RN 03/18/19 07:51:33 Post-Care Text: The patient received appropriate medication(s) safely administered during the perioperative period X-Rays and Images FTPM Pre-Care Text: Assess history of previous radiation exposure and implements protective measures Entry 1 X-Ray Type C-Arm Contrast Used? Yes Outcomes Met? Yes Last Modified By: Zhang Carrion RN 03/18/19 07:51:25 Post-Care Text: The patient is free from signs and symptoms of radiation injury Case Comments Finalized By: Zhang Carrion RN Document Signatures Signed By: Zhang Carrion RN 03/18/19 08:19 [facility] Main OR Preoperative Recordo n 03-18-2019 Main OR Preoperative Record Holding Area Document Type FT Summary Primary Physician: Chauncey Alicea MD Finalized Date/Time: 03/18/19 07:50:56 Pt. Name: SEVERINO GREER /Sex: 1970 Female Med Rec #: [id number] Physician: Chauncey Alicea MD Financial #: [id number] Pt. Type: P Room/Bed: / Admit/Disch: 03/18/19 07:41:51 - Institution: Case Times Holding FTPM Pre-Care Text: Verifies consent for planned procedure, identifies individual values and wishes concerning care, includes family members in perioperative teaching Secures patient's records' belongings, and valuables, maintains patient's dignity and privacy, and maintains patient confidentiality Entry 1 In Holding 03/18/19 07:48:00 Outcomes Met? Yes Last Modified By: Liseth Delacruz RN 03/18/19 07:48:41 Post-Care Text: The patient participates in decisions affecting his or her perioperative plan of care The patient's right to privacy is maintained Surgery Checklist FTPM Entry 1 Patient Birthday, ID Band Procedure History and Physical, Identification: Check, Patient Verification: Surgical Consent, With Participation Patient NPO after Midnight: Yes Results Reviewed none Comments: Personal Items: Glasses, Jewelry Personal Items glasses in bag, ear Comment: rings Complaints of Pain: Yes Pain Comment: R side of neck 12/12 Operative Site Yes Marked By: Dr. Alicea Marking: Availability Equipment Verified: Does Patient Smoke No Patient states Yes Comment - Adult Gamaliel Quintanilla postop adult Supervision supervision available Case Cancelled in No Holding Area see comments below for reason Last Modified By: Liseth Delacruz RN 03/18/19 07:50:52 Finalized By: Liseth Delacruz RN Document Signatures Signed By: Liseth Delacruz RN 03/18/19 07:50 [facility] Operative Reporton 9 Operative Report Patient: KARISSA GREER Age: 48 years Sex: Female : 1970 Associated Diagnoses: None Author: Chauncey Alicea MD Procedure Procedure: Cervical Epidural Steroid Injection with Fluoroscopic Guidance at C6/7 Diagnosis: Cervical Disc Displacement without myelopathy Anesthesia: MAC MAC anesthesia is medically necessary for the procedure due to the procedure requiring the patient to remain in a painful position. The patient was identified in the pre-op area. The procedure, including risks benefits and alternatives was discussed with the patient. The patient agreed to proceed. Informed consent was obtained and the site(s) marked. The patient was brought to the procedure room and placed in the prone position with the neck flexed. Time out was taken. The neck was prepped and draped in sterile fashion. Skin and subcutaneous tissues were anesthetized with 6 mL of Lidocaine 2% through a 25G needle. An 18G Touhy needle was then advanced under fluoroscopic guidance to the inferior lamina and then advanced cephalad into the epidural space using loss of resistance technique with a plastic JO syringe. Isovue 3mL was injected under live fluoroscopy which demonstrated appropriate epidural spread without vascular uptake. After confirmation of negative aspiration, 5mL of 0.5% PF lidocaine and 60mg of methylprednisolone were injected. The needle was removed and a bandage applied. The patient was brought to the recovery area in stable condition and then monitored for an appropriate period of time. The patient was discharged home in good condition with post-procedure instructions. No apparent complications. Epidural injection procedure Physical Exam: vital signs Vital Signs 03/18/2019 07:53 EDT Temperature Oral 36.8 DegC Heart Rate Monitored 80 bpm Respiratory Rate 12 br/min LOW Systolic Blood Pressure 146 mmHg HI Diastolic Blood Pressure 97 mmHg HI Mean Arterial Pressure, Monitered 113 mmHg SpO2 99 % . Normal [facility] Comment on above: Result Comment: Elec tronically Signed By: Deanne QUINTERO, Chauncey Moncada\.aston\Date and Time Signed: 03/18/19 08:20 EDT Coding Summary.on 02-28-2019 Coding Summary. CODING DATE: 019 FINAL [facility] DSC STATUS: Home (Routine DC) PAYOR: [facility] [place] APC DESCRIPTION 5442 Level 2 Nerve Injections ADMIT DX: REASON FOR VISIT DX: M50.20 Other cervical disc displacement, unspecified cervical region FINAL DX: PRINCIPAL: M50.20 Other cervical disc displacement, unspecified cervical region SECONDARY: M54.12 Radiculopathy, cervical region PYMT PROC APC STAT DESCRIPTION DOCTOR NAME DATE NOTE: The code number assigned matches the documented diagnosis and / or procedure in the patient's chart. However, the narrative phrase printed from the coding software may appear abbreviated, or result in slightly different terminology. Coded By: Charlotte Verduzco Date Saved: 02/28/2019 10:26 am [facility] Main OR Intraoperative Recor don 02-26-2019 Main OR Intraoperative Record IntraOp Document Type FTPM Summary Primary Physician: Chauncey Alicea MD Finalized Date/Time: 02/26/19 08:23:08 Pt. Name: SEVERINO GREER Trang MurilloB./Sex: 1970 Female Med Rec #: [id number] Physician: Chauncey Alicea MD Financial #: [id number] Pt. Type: P Room/Bed: / Admit/Disch: 02/26/19 07:04:10 - Institution: Case Times FTPM Entry 1 Patient Times In Room 02/26/19 08:17:00 Out Room 02/26/19 08:24:00 Procedure Times Start 02/26/19 08:20:00 Stop 02/26/19 08:22:00 Anesthesia Times Start 02/26/19 08:17:00 Stop 02/26/19 08:24:00 Last Modified By: Silvia YE, Trinidad Donis 02/26/19 08:23:02 Case Attendance FTPM Entry 1 Entry 2 Entry 3 Case Attendee Chauncey Alicea MD, JR, DO, Ellis Vega RN, Trinidad Donis Role Performed Surgeon - Primary Anesthesiologist of Substance Abuse Counselor - Primary Record Time In 02/26/19 08:17:00 02/26/19 08:17:00 02/26/19 08:17:00 Time Out 02/26/19 08:24:00 02/26/19 08:24:00 02/26/19 08:24:00 Procedure CERVICAL EPIDURAL CERVICAL EPIDURAL CERVICAL EPIDURAL STEROID INJECTION(.) STEROID INJECTION(.) STEROID INJECTION(.) Comments Last Modified By: Silvia RN, Trinidad Vega RN, Trinidad Hooker RN 02/26/19 08:23:03 02/26/19 08:23:03 02/26/19 08:23:03 Entry 4 Entry 5 Entry 6 Case Attendee Lenny RN, Susana Argueta RN, Thalia Carr Role Performed Scrub - Other Scrub - Primary Business Rules Analyst Time In 02/26/19 08:17:00 02/26/19 08:17:00 02/26/19 08:17:00 Time Out 02/26/19 08:24:00 02/26/19 08:24:00 02/26/19 08:24:00 Procedure CERVICAL EPIDURAL CERVICAL EPIDURAL CERVICAL EPIDURAL STEROID INJECTION(.) STEROID INJECTION(.) STEROID INJECTION(.) Comments Last Modified By: Trinidad Vega RN, RN, Trinidad Hooker RN 02/26/19 08:23:03 02/26/19 08:23:03 02/26/19 08:23:03 Perioperative Protocols FTPM Pre-Care Text: Implements protective measures prior to operative or invasive procedure, confirms identity before the operative or invasive procedure, verifies operative procedure, surgical site, and laterality Entry 1 Procedure(s) CERVICAL EPIDURAL Patient Identity Birthday, ID Band STEROID INJECTION(.) Verified (select at Check, Patient least 2): Participation Consents / H and P Anesthesia Consent, Operative Site Present Verified HandP, Surgery/Procedure Marking Verified Consent Surgical Site Yes Laterality Verified Yes Verified Procedure Verified Yes Correct Patient Yes Position Verified Availability Equipment, Medication, Prep Dry Yes Verified (If X-ray Applicable) PreOp Antibiotic No Time Out Dileep DARNELL DO, Silvia Ramsey RN, Kendall Mcclure RN, Deanne Ya MD, Lenny Mahajan RN, Jose Luis Griffith Michelle M Time Out Complete 02/26/19 08:17:00 Outcomes Met? Yes Last Modified By: Trinidad Vega RN 02/26/19 08:17:35 Post-Care Text: The patient is free from signs and symptoms of injury caused by extraneous objects Allergy Information FTPM Pre-Care Text: Verifies allergies Entry 1 Allergies Reviewed? Yes Allergies Reviewed Self/Patient With Outcomes Met? Yes Last Modified By: Trinidad Vega RN 02/26/19 07:49:17 Post-Care Text: The patient received appropriate medication(s) safely administered during the perioperative period Surgical Procedures FTPM Entry 1 Procedure Description Procedure CERVICAL EPIDURAL Modifiers . STEROID INJECTION Surgeon Description C6/7 Primary Procedure Yes Primary Surgeon Deanne QUINTERO, Chauncey Moncada Start 02/26/19 08:20:00 Stop 02/26/19 08:22:00 Anesthesia Type MAC Surgical Service Pain Management Wound Class 1 - Clean Last Modified By: Trinidad Vega RN 02/26/19 08:23:04 General Case Data FTPM Pre-Care Text: Classifies surgical wound, implements aseptic technique, initiates traffic control Entry 1 Case Information OR Pain Proc Room Case Level Level 2 Wound Class 1 - Clean Specialty Pain Management ASA Class 2 Preop Diagnosis M50.20 Postop Same As Preop Yes Postop Diagnosis M50.20 Outcomes Met? Yes Last Modified By: Trinidad Vega RN 02/26/19 08:20:20 Post-Care Text: The patient is free from signs and symptoms of infection Skin Assessment (Pre Procedure) FTPM Pre-Care Text: Implements protective measures to prevent skin/ tissue injury due to thermal or mechanical sources Evaluates for signs and symptoms of physical injury to skin and tissue Entry 1 Skin Integrity Intact, Stanley, Warm, and Skin Abnormality No Dry Outcomes Met? Yes Last Modified By: Trinidad Vega RN 02/26/19 07:49:37 Post-Care Text: The patient is free from signs and symptoms of injury caused by extraneous objects Patient Positioning FTPM Pre-Care Text: Identifies physical alterations that require additional precautions for procedure-specific positioning, verifies presence of prosthetics or corrective devices, positions the patient, evaluates the patient for signs and symptoms of injury as a result of positioning Entry 1 Procedure CERVICAL EPIDURAL Body Position Prone STEROID INJECTION(.) Feet Uncrossed? Yes Left Arm Position Resting at Side Right Arm Position Resting at Side Left Leg Position Extended Right Leg Position Extended Positioning Device Pillow Under Head Large, Safety Strap, Pillow Large Under Knees Press Points Checked Yes By Trinidad Vega RN, Ellis Falk JR, DO Outcomes Met? Yes Last Modified By: Trinidad Vega RN 02/26/19 07:49:48 Post-Care Text: The patient is free from signs and symptoms of injury related to positioning Transport To OR FTPM Pre-Care Text: Transports according to individual needs. Evaluates for signs and symptoms of skin and tissue injury as a result of transfer or transport Entry 1 Via Cart By Trinidad Vega RN Safety Precautions Safety Strap, Side Outcomes Met? Yes Rails Up Last Modified By: Trinidad Vega RN 02/26/19 07:49:52 Post-Care Text: The patient is free from signs and symptoms of injury related to transfer/transport Skin Prep FTPM Pre-Care Text: Performs skin preparations Entry 1 Procedure CERVICAL EPIDURAL Prep Area BLOCK INJECTION SITE STEROID INJECTION(.) Prep Agents Chloraprep/Dry Prior to Start Dry Time 02/26/19 08:17:00 Draping Stop Dry Time 02/26/19 08:20:00 Hair Removal Methods Not Indicated By Bhakti Argueta RN Outcomes Met? Yes Last Modified By: Trinidad Vega RN 02/26/19 08:17:51 Post-Care Text: The patient is free from signs and symptoms of infection Departure From OR FTPM Pre-Care Text: Transports according to individual needs. Evaluates for signs and symptoms of skin and tissue injury as a result of transfer or transport. Entry 1 Via Cart Safety Precautions Safety Strap, Side Rails Up PostOp Destination PACU Transported By Trinidad Vega RN Patient Status Stable Report Given Karen Gabriel RN To/Hand Off Communication Skin. Condition Dry, Intact Airway Maintenance Oxygen in Use? No Outcomes Met? Yes Last Modified By: Trinidad Vega RN 02/26/19 07:50:07 Post-Care Text: The patient is free from signs and symptoms of injury related to transfer/transport Dressing/Packing FTPM Pre-Care Text: Administers care to wound sites Entry 1 Type Dressing Site and Details OPSITE AND 2X2 TO INJECTION SITE Outcomes Met? Yes Last Modified By: Trinidad Vega RN 02/26/19 07:50:11 Post-Care Text: The patient is free from signs and symptoms of infection Medication Administration FTPM Pre-Care Text: Verifies allergies, administers prescribed medications and solutions, administers prescribed antibiotic therapy and immunizing agents as ordered, evaluates response to medications Administers prescribed medications and solutions Entry 1 Route of Admin Block Expiration Date Yes Verified Ordered By Chauncey Alicea MD Transcribed/To Trinidad Vega RN Field By Administered By Chauncey Alicea MD Outcomes Met? Yes Last Modified By: Trinidad Vega RN 02/26/19 07:50:16 Post-Care Text: The patient received appropriate medication(s) safely administered during the perioperative period X-Rays and Images FTPM Pre-Care Text: Assess history of previous radiation exposure and implements protective measures Entry 1 X-Ray Type C-Arm Contrast Used? Yes Outcomes Met? Yes Last Modified By: Trinidad Vega RN 02/26/19 07:50:23 Post-Care Text: The patient is free from signs and symptoms of radiation injury Case Comments Finalized By: Trinidad Vega RN Document Signatures Signed By: Trinidad Vega RN 02/26/19 08:23 [facility] Main OR Preoperative Recordo n 02-26-2019 Main OR Preoperative Record Holding Area Document Type FTPM Summary Primary Physician: Chauncey Alicea MD Finalized Date/Time: 02/26/19 07:44:06 Pt. Name: SEVERINO GREER Trang Yu./Sex: 1970 Female Med Rec #: [id number] Physician: Chauncey Alicea MD Financial #: [id number] Pt. Type: P Room/Bed: / Admit/Disch: 02/26/19 07:04:10 - Institution: Case Times Holding FTPM Pre-Care Text: Verifies consent for planned procedure, identifies individual values and wishes concerning care, includes family members in perioperative teaching Secures patient's records' belongings, and valuables, maintains patient's dignity and privacy, and maintains patient confidentiality Entry 1 In Holding 02/26/19 07:41:00 Outcomes Met? Yes Last Modified By: Malorie Tolbert RN 02/26/19 07:41:59 Post-Care Text: The patient participates in decisions affecting his or her perioperative plan of care The patient's right to privacy is maintained Surgery Checklist FTPM Entry 1 Patient Birthday, ID Band Procedure Surgical Consent, With Identification: Check, Patient Verification: Patient Participation NPO after Midnight: Yes Results Reviewed none Comments: Personal Items 5 earrings Complaints of Pain: Yes Comment: Pain Comment: 12/12 neck pain Operative Site Yes Marking: Marked By: Per Dr. Alicea Availability Equipment, X-Ray Verified: Does Patient Smoke No Patient states Yes Comment - Adult Julian postop adult Supervision supervision available Case Cancelled in No Holding Area see comments below for reason Last Modified By: Malorie Tolbert RN 02/26/19 07:43:33 Finalized By: Malorie Tolbert RN Document Signatures Signed By: Malorie Tolbert RN 02/26/19 07:44 [facility] Operative Reporton 9 Operative Report Patient: KARISSA GREER Age: 48 years Sex: Female : 1970 Associated Diagnoses: None Author: Chauncey Alicea MD Procedure Procedure: Cervical Epidural Steroid Injection with Fluoroscopic Guidance at C6/7 Diagnosis: Cervical Disc Displacement without myelopathy Anesthesia: MAC MAC anesthesia is medically necessary for the procedure due to the procedure requiring the patient to remain in a painful position. The patient was identified in the pre-op area. The procedure, including risks benefits and alternatives was discussed with the patient. The patient agreed to proceed. Informed consent was obtained and the site(s) marked. The patient was brought to the procedure room and placed in the prone position with the neck flexed. Time out was taken. The neck was prepped and draped in sterile fashion. Skin and subcutaneous tissues were anesthetized with 6 mL of Lidocaine 2% through a 25G needle. An 18G Touhy needle was then advanced under fluoroscopic guidance to the inferior lamina and then advanced cephalad into the epidural space using loss of resistance technique with a plastic JO syringe. Isovue 3mL was injected under live fluoroscopy which demonstrated appropriate epidural spread without vascular uptake. After confirmation of negative aspiration, 5mL of 0.5% PF lidocaine and 60mg of methylprednisolone were injected. The needle was removed and a bandage applied. The patient was brought to the recovery area in stable condition and then monitored for an appropriate period of time. The patient was discharged home in good condition with post-procedure instructions. No apparent complications. Normal [facility] [facility] Comment on above: Result Comment: Elec tronically Signed By: Deanne QUINTERO, Chauncey Moncada\.br\Date and Time Signed: 02/26/19 08:22 EDT Progress Note-Physicianon Progress Note-Physician Patient: SEVERINO GREER Age: 48 years Sex: Female : 1970 Associated Diagnoses: None Author: Ellis Falk JR, DO Preoperative Information Anesthesia history: Patient History: Pt./ family denies any personal or family hx of problems/difficulties with anesthesia.. Re-eval prior to induction: Inital eval reviewed: No significant interval change, NPO 10 hours.. Anesthesia results Review of Systems Constitutional: See pain clinic assessment.. Cardiovascular: Cardiac risk assessment performed. Pt. denies any significant change in their cv hx.. Respiratory: Pt. denies any signicant change in their respiratory status.. Neurologic: Pt. denies any acute neurological changes.. Health Status Allergies: Allergic Reactions (Selected) No Known Medication Allergies, Allergies (1) Active Reaction No Known Medication Allergies None Documented Current medications: (Selected) Inpatient Medications Ordered NS 500 mL Soln-IV 500 mL: 500 mL, IV, 15 mL/hr, Routine, Start date 02/26/19 7:38:00 EDT, 33.3 hour(s), Total volume (mL): 500 Documented Medications Documented Acidophilus Probiotic Blend: 1 cap(s), Oral, Daily, Refill(s) 0 diclofenac: 75 mg, Oral, Daily, Refills(s) 0 magnesium carbonate: Refills(s) 0 potassium acetate: Refills(s) 0, Medications (1) Active Scheduled: (0) Continuous: (1) Sodium Chloride 0.9% 500 mL 500 mL, IV, 15 mL/hr PRN: (0) Problem list: All Problems Acute carpal tunnel syndrome / SNOMED CT 03296229 / Confirmed, Active Problems (1) Acute carpal tunnel syndrome Histories Past Medical History: No active or resolved past medical history items have been selected or recorded. Family History: No family history items have been selected or recorded. Procedure history: Carpal tunnel release ([id number]). Comments: 01/15/2019 10:32 - Day Colleen WEAVER 2004 bilateral Social History Social & Psychosocial Habits Tobacco 01/15/2019 Risk Assessment: Denies Tobacco Use 02/05/2019 Tobacco Use: Never (less than 100 in l. Physical Examination Vital Signs (last 24 hrs) Last Charted Temp Oral 36.5 DegC (FEB 26 08:27) Resp Rate 16 br/min (FEB 26 08:27) SBP 123 mmHg (FEB 26 08:) DBP 88 mmHg (FEB 26 08:) SpO2 96 % (FEB 26 08:) Weight 77.11 kg (FEB 26 07:39) Height 167.4 cm (FEB 26 07:39) Airway: Normal oral/pharyngeal anatomy.. Respiratory: Adequate air exchange.. Cardiovascular: Adequate perfusion and function. Review / Management Results review: No qualifying data available. Plan [place] [employer] Anesthesi[employer] (ASA) physical status classification: Class II. Anesthetic Preoperative Plan Anesthesia: Monitored anesthesia care. Anesthetic plan, risks, benefits, and alternatives discussed with the patient and/or family. Pt. and/or family present and agree to proceed as planned.. Discussed with pt the importance of abstaining from tobacco products, and offered counseling if pt desires.. Normal [facility] Comment on above: Result Comment: Elec tronically Signed By: Ellis Falk JR, DO.aston\Date and Time Signed: 02/26/19 08:34 EDT Coding Summary.on 02-13-2019 Coding Summary. CODING DATE: 019 FINAL [facility] STATUS: Home (Routine DC) PAYOR: [facility] [place] ADMIT DX: REASON FOR VISIT DX: M54.2 Cervicalgia M79.603 Pain in arm, unspecified FINAL DX: PRINCIPAL: M54.12 Radiculopathy, cervical region SECONDARY: M50.20 Other cervical disc displacement, unspecified cervical region Z79.899 Other long term care social worker (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 However, the narrative phrase printed from the coding software may appear abbreviated, or result in slightly different terminology. Coded By: Denise Garcia CphT Date Saved: 02/13/2019 07:11 am [facility] Consultation Noteon 02-12-20 Consultation Note HOSPITAL REGULATIONS : ALL Positive Important Negative Findings Shall Be Recorded. Date of 02/05/2019 Consultation: Attending Tracie Mars M.D. Physician: Consulting Chauncey Alicea M.D. Physician: NEW PATIENT EVALUATION CHIEF COMPLAINT: Right-sided neck and arm pain. HISTORY OF PRESENT ILLNESS: This is a 48 year old female with a history of carpal tunnel surgery who developed right-sided neck and arm pain over the past several months with no inciting injury or trauma. Pain radiates into her bicep and to the first digit of her right hand. It feels like it is itching. Certain movements such as turning her head to the right and looking up exacerbate her pain. Use of the arm exacerbates her pain as well. Treatments have included assurance services manager health care with Dr. Mars with minimal relief, and regular use of diclofenac (high dose) with minimal relief as well. The patient notes that the pain impacts quality of life and activities of daily living. Her pain rates as a 7/10 on the Visual Analog Scale and is associated with the aforementioned numbness and tingling. She denies any loss of bowel or bladder function, fever or chills, stumbling or falling. She does endorse clumsiness in her right hand and dropping things at times. She is left-handed. Past medical history, family history, surgical history, psychosocial history, medication list, allergies and a complete review of systems were obtained and reviewed. Pertinent findings are noted in the HISTORY OF PRESENT ILLNESS. PHYSICAL EXAMINATION: Constitutional: No acute distress, well nourished, well developed. Eyes: No exudate or deformity. Extraocular muscles are intact. Ears, Nose, Mouth and Throat: Ears and nose are without deformity. Normal appearing tongue and teeth. Neck: No noticeable masses, tracheal deviation or asymmetry. No thyromegaly on inspection. Respiratory: No gasping or shortness of breath. No accessory muscle use. Cardiovascular: Pulses in extremities are palpable. No noticeable lower extremity edema or varicosities. Gastrointestinal: No distention. No pain with palpation. Lymphatic: No supraclavicular or cervical lymphadenopathy. Skin: Inspection of the skin reveals no rashes, lesions or ulcers. Normal skin turgor. Psychiatric: Oriented to time, place and person. Normal mood and affect. Musculoskeletal: The patient arises easily from a seated position. There is no gross deformity or asymmetry. Extension of the cervical spine reproduces pain into the right upper extremity. There is a positive Spurling's test on the right. Neurological: 5/5 strength throughout bilateral upper and lower extremities with diminished sensation in the right C5 and C6 distribution. Hoffmanns sign is negative bilaterally. Normal gait. IMAGING STUDIES: The magnetic resonance imaging of the cervical spine demonstrates degenerative disc at C5-6 with a right-sided foraminal narrowing secondary to disc displacement. No significant cord impingement or cord signal change noted. ASSESSMENT/PLAN: This is a 48 year old female who, based on her history and physical examination and imaging studies, is suffering from cervical radiculitis secondary to disc displacement. The pain has not responded to appropriate conservative care including assurance services manager health care and regular use of non-steroidal anti-inflammatory medications. I recommend going ahead with a cervical epidural steroid injection to address her pain. A detailed description of the procedure including risks, benefits and alternatives were discussed with the patient and she wishes to proceed. She will follow up two weeks after the injection to assess response and call the Clinic with any questions or concerns. The patient agrees with the plan of care. She will continue her current medications in the meanwhile. Chauncey Alicea M.D. aek Dictated: 02/05/2019 #[id number] Typed: 02/08/2019 #[id number] cc: Chauncey Alicea M.D. Tracie Mars M.D. Doyle Bustos MD [facility] Comment on above: Result Comment: Elec tronically Signed By: Deanne QUINTERO, Chauncey Moncada\.br\Date and Time Signed: 02/11/19 09:25 EDT Consultation Noteon 01-26-20 Consultation Note HOSPITAL REGULATIONS : ALL Positive Important Negative Findings Shall Be Recorded. Date of 01/15/2019 Consultation: Attending Tracie Mars M.D. Physician: Consulting Doyle Bustos MD Physician: CHIEF COMPLAINT: Neck, right arm misery. HISTORY OF PRESENT ILLNESS: A 48 year old female left-hand dominant. 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 Two month history of significant right upper extremity misery. She has had neck pain off and on for many years but she has never had arm symptoms with it. She states this began atraumatically. No significant event brought it on. Denies any left-sided symptoms. Denies any significant right arm pain just mostly arm numbness and tingling, significant neck pain. Denies any clumsiness in her hands. Denies any clumsiness in her gait. Denies any bowel or bladder symptoms. She states she can make her right arm misery predictably better if she leans her left ear to her left shoulder. She has not taken any medications for it. She has not had any significant conservative treatment. PAST MEDICAL, PAST SURGICAL, MEDICATIONS, ALLERGIES, SOCIAL HISTORY, REVIEW OF SYMPTOMS AND FAMILY HISTORY: Please refer to the scanned new patient questionnaire for these. Of note, REVIEW OF SYMPTOMS is positive for seasonal allergy, joint stiffness and swelling, muscle pain and swelling, fatigue, poor sleep, stress at work and home, menopause and menstrual irregularity. PHYSICAL EXAMINATION: General: She is alert and oriented x3, in no acute distress. She appears fit. Lower extremities: She rises from a seated position without difficulty. She can heel walk, toe walk, tandem walk, do repetitive single leg heel rise. She gets on and off the examining room table without difficulty. 5/5 all muscle groups. Sensation is intact to light touch L2-S1 dermatomes. Deep tendon reflexes are normoactive and equal knee jerk and ankle jerk. She has no clonus. Full non-tender range of motion in hips, knees, ankles. Well perfused bilateral lower extremities. Upper extremities: Significantly weak in her left wrist extension, maybe 4+/5. Decreased light touch in the C6 dermatome on the left compared to the right. Otherwise she is 5/5. Sensation is intact. Deep tendon reflexes are normoactive and equal biceps, triceps, brachial radialis. Negative Preet's sign. Full non-tender range of motion shoulders, elbows, wrists. Well perfused bilateral upper extremities. Spine: Cervical spine range of motion is diminished in extension secondary to subjective pain. She does have a positive foraminal compression sign to the left. INVESTIGATIONS: X-rays of her cervical spine shows significantly decreased disc height at C5-6 with a mild retrolisthesis on C5 on 6. Magnetic resonance imaging shows the same disc degeneration with bilateral foraminal stenosis left worse than right but no spinal cord compression. IMPRESSION: 48 year old female, left-hand dominant with significant right upper extremity radiculopathy from a C5-6 disc issue. Weakness of her left wrist extension. PLAN: I told the patient secondary to her weakness that surgery is an option for her but I think she is on her way to ankylosing that segment without surgery. I told her if we can make her misery better with conservative treatment we can follow this along. I told her we need to be cognitive of any new symptoms in her upper extremities. We are going to have her see our pain management guys to see if they can work her through conservative treatment. If not surgery would be predictable in the form of an anterior cervical discectomy and fusion at C5-6. She will follow up if conservative treatment fails for surgical options. MD marika Kendall Dictated: 01/15/2019 #[id number] Typed: 01/17/2019 #[id number] cc: Tracie Mars M.D. Doyle Bustos MD [facility] Comment on above: Result Comment: Elec tronically Signed By: Akash QUINTERO, Doyle Bashir\.br\Date and Time Signed: 01/25/19 16:46 EDT Coding Summary.on 01-18-2019 Coding Summary. CODING DATE: 019 [facility] STATUS: Home (Routine DC) PAYOR: [facility] [place] ADMIT DX: REASON FOR VISIT DX: M54.2 Cervicalgia M79.601 Pain in right arm FINAL DX: PRINCIPAL: M79.601 Pain in right arm SECONDARY: M54.12 Radiculopathy, cervical region M48.02 Spinal stenosis, cervical region R29.898 Other symptoms and signs involving the musculoskeletal system PROCEDURES DOCTOR NAME DATE NOTE: The code number assigned matches the documented diagnosis and / or procedure in the patient's chart. However, the narrative phrase printed from the coding software may appear abbreviated, or result in slightly different terminology. Coded By: Denise Garcia CphT Date Saved: 01/18/2019 09:40 am [facility] Vital Signs Date Time Vital Sign Value Performing Clinician Facility 01-18-2023 10:10-0400 Body height 167.64 cm Lili Eaton Other [facility] Other 01-18-2023 10:10-0400 Body mass index (BMI) [Ratio] 26.31 kg/m2 Lili Eaton Other [facility] Other 01-18-2023 10:10-0400 Body weight 73.94 kg Lili Eaton Other [facility] Other 01-18-2023 10:10-0400 Diastolic blood pressure 90 mm[Hg] Lili Eaton Other [facility] Other 01-18-2023 10:10-0400 Respiratory rate 18 /min Lili Eaton Other [facility] Other 01-18-2023 10:10-0400 SaO2% (BldA) [Mass fraction] 100 % Lili Eaton Other [facility] Other 01-18-2023 10:10-0400 Systolic blood pressure 143 mm[Hg] Lili Eaton Other [facility] Other Encounters Encounter Date Encounter Type Care Provider Facility Start: 01-18-2023 End: 01-18-2023 ambulatory Lili Eaton Other [facility] Other Start: 01-18-2023 Office outpatient vi sit 15 minutes [facility] Start: 02-03-2022 End: 02-04-[address] TRACIE MARS Facility:[facility] Procedures Date Procedure Procedure Detail Performing Clinician Start: 03-19-2019 Anesthesia consultation Start: 03-18-2019 Anesthesia consultation Payers Date Payer Category Payer Unknown [id number] 1961 Unknown [id number] [facility] [id number] Social History Date Type Detail Facility Sex Assigned At [facility] Other Evaluation note 01-18-2023 Note Date & Type Note Facility 01-18-2023 Evaluation note Encounter Date Diagnosis Assessment Notes Jan, Left foot pain (ICD-10 - M79.672) XR yesterday was negative for fracture or other abnormality. Discussed possible causes of pt sx with them in office today. Discussed poss sprain/strain vs gout. Rx steroid as directed with food. Avoid nsaids while on steroid. Discussed with pt that if sx become chronic they may need to f/u with pcp for chronic management. F/u with pcp, sooner in ER for worsening sx. Pt understood and agreed to tx plan. [facility] Other Summary Purpose Family History No Family History Records FoundNo Family History Records Found Advance Directives No Advanced Directives Records FoundNo Advanced Directives Records Found Procedure Findings Note Patient: SEVERINO GREER Age: 48 years Sex: Female : 1970 Associated Diagnoses: None Author: Ellis Falk JR, DO Postoperative Information Post Operative Note Anesthetic utilized: Monitored anesthesia care. Health Status Allergies: Allergic Reactions (Selected) No Known Medication Allergies Current medications: (Selected) Inpatient Medications Ordered NS 500 mL Soln-IV 500 mL: 500 mL, IV, 15 mL/hr, Routine, Start date 02/26/19 7:38:00 EDT, 33.3 hour(s), Total volume (mL): 500 Documented Medications Documented Acidophilus Probiotic Blend: 1 cap(s), Oral, Daily, Refill(s) 0 diclofenac: 75 mg, Oral, Daily, Refills(s) 0 magnesium carbonate: Refills(s) 0 potassium acetate: Refills(s) 0 Problem list: All Problems Acute carpal tunnel syndrome / SNOMED CT 65446081 / Confirmed Physical Examination Intake and Output Pt. denies significant n/v, and is tolerating p.o. Vital Signs (last 24 hrs) Last Charted Temp Oral 36.5 DegC (FEB 26 08:27) (more content not included)... Additional Source Comments INFORMATION SOURCE (unrecogn ized section and content) DATE CREATED AUTHOR 04/10/2019 [facility] DATE CREATED AUTHOR AUTHOR'S ORGANIZ ATION [facility]04/20[facility] RE[facility]ON FOR VISIT (unrecogniz ed section and content) LEFT FOOT PAIN, NOTHING THAT S UNUSUAL,BONE DENSITY TEST FOR RECORDS PERTAINING TO PATIENTS WHO ARE OR HAVE BEEN ENROLLED IN A CHEMICAL DEPENDENCY/SUBSTANCEABUSE PROGRAM, SOME INFORMATION MAY BE OMITTED. This clinical summary was aggregated from multiple sources. Caution should be exercised in using it in the provision of clinical care. This summary normalizes information from multiple sources, and as a consequence, information in this document may materially change the coding, format and clinical context of patient data. In addition, data may be omitted in some cases. CLINICAL DECISIONS SHOULD BE BASED ON THE PRIMARY CLINICAL RECORDS. [employer] [facility]. provides no warranty or guarantee of the accuracy or completeness of information in this document.
== END 2024-02-23 14:30 | disposition home or self-care (01) ==
LOC: RAD 14:30
PROVIDERS: PCP Family Medicine; Visit Provider Family Medicine
DX: M54.12 Radiculopathy, cervical region (principal); R22.30 Localized swelling, mass and lump, unspecified upper limb; M25.711 Osteophyte, right shoulder
CPT/HCPCS: 72040; 73030

== ENCOUNTER 2024-03-12 09:34 | Outpatient (OUT) | payer BC, SELFPAY ==
--- NOTE | 2024-03-12 09:37 | MR_ITS ---
[address] [address] Patient Name: SEVERINO GREER MRN: [id number] date: 1970 Sex: F Assigned Patient Location: MRI Current Patient Location: Accession/Order Number: [id number] Exam Date: 03/12/2024 09:50 Report Date: 03/13/2024 06:50 At the request of: TRACIE MALONE Procedure: MR cervical spine wo con EXAMINATION: MR cervical spine wo con HISTORY: Cervical Radiculopathy ; chronic neck pain COMPARISON: XR cervical spine 02/23/2024 TECHNIQUE: A variety of imaging planes and parameters were utilized for visualization of suspected pathology without and/or with intravenous Dotarem contrast based on examination type. FINDINGS: CRANIOCERVICAL AREA: Normal foramen magnum with no Chiari malformation. PARASPINAL AREA: Normal with no visible mass. BONES: Mild grade 1 anterolisthesis of C4 on 5 and C6 on 7. Fatty degenerative endplate changes involving C5 and C6 (Modic type II). CORD: Normal caliber, contour, and signal intensity. CERVICAL DISC LEVELS: C2-C3: Mild left foramen narrowing secondary to left facet arthropathy. C3-C4: Moderate foramen narrowing bilaterally secondary to degenerative facet arthropathy and uncovertebral joint spurring. C4-C5: Mild right, moderate left foramen narrowing. Moderate degenerative facet arthropathy, left greater than right. Mild grade 1 anterolisthesis of C4 on 5. No disc height reduction or significant disc bulging. C5-C6: Moderate central canal narrowing. Marked bilateral foramen narrowing. Moderate broad-based disc bulging and marked disc height reduction. Moderate degenerative facet arthropathy, left greater than right and prominent uncovertebral joint spurring bilaterally. C6-C7: Moderate central canal narrowing. Marked right foramen and moderate to marked left foramen narrowing. Mild diffuse disc bulging and slight disc height reduction. Uncovertebral joint spurring and mild degenerative facet arthropathy bilaterally. C7-T1:. Mild central canal and moderate bilateral foramen narrowing. Mild degenerative facet arthropathy and uncovertebral joint spurring. No significant disc bulging or disc height reduction. MR/MR cervical spine wo con IMPRESSION: 1. C5-C6 and C6-C7 moderate central canal narrowing and bilateral moderate to marked foramen narrowing secondary to degenerative disc disease, uncovertebral joint spurring, facet arthropathy. Electronically authenticated by: VINCENT SHIRLEY Date: 03/13/2024 06:50
--- OUTSIDE RECORDS SUMMARY | 2024-03-12 09:38 | XMS_ITS | CCD ---
Author Organization [facility] Care Team Providers Care Certified Adapted Physical Educator Name Role Phone DR TRACIE MARS Attending [...] INSULINon 02-04-2022 Insulin 22.5 uIU/mL Normal 2.6-24.9 [facility] Comment on above: Performed By: #### I NSULIN #### [facility] [address] [place] [address] Dr. Tessa Jackson T4, T3U, FTI LABCORPon 02-04 Free Thyroxine Index 1.5 Normal 1.2-4.9 [facility] Comment on above: Performed By: #### T HYLC #### [facility] [address] [place] [address] Dr. Tessa Jackson T3 Uptake 27 % Normal 24-39 [facility] Comment on above: Performed By: #### T HYLC #### [facility] [address] [place] [address] Dr. Tessa Jackson T4 [Mass/Vol] 5.7 ug/dL Normal 4.5-12.0 [facility] Comment on above: Performed By: #### T HYLC #### [facility] [address] [place] [address] Dr. Tessa Jackson CBC AUTO DIFFon 02-03-2022 BASO # 0.0 103/ul Normal 0.0-0.1 [facility] Comment on above: Performed By: #### C BC #### [facility] [address] [place] [address] Dr. Tessa Jackson Basophils/100 WBC (Bld) 0.1 % Critically low 0.2-2.0 [facility] Comment on above: Performed By: #### C BC #### [facility] [address] [place] [address] Dr. Tessa Jackson EO # 0.0 103/ul Normal 0.0-0.7 [facility] Comment on above: Performed By: #### C BC #### [facility] [address] [place] [address] Dr. Tessa Jackson Eosinophils/100 WBC (Bld) 0.0 % Critically low 0.9-7.0 [facility] Comment on above: Performed By: #### C BC #### [facility] [address] [place] [address] Dr. Tessa Jackson Erythrocyte distribution width (RBC) [Ratio] 13.1 % Normal 11.0-15.0 [facility] Comment on above: Performed By: #### C BC #### [facility] [address] [place] [address] Dr. Tessa Jackson Hematocrit (Bld) [Volume fraction] 40.7 % Normal 36.0-48.0 [facility] Comment on above: Performed By: #### C BC #### [facility] [address] [place] [address] Dr. Tessa Jackson Hemoglobin (Bld) [Mass/Vol] 13.5 g/dL Normal 12.0-16.0 [facility] Comment on above: Performed By: #### C BC #### [facility] [address] [place] [address] Dr. Tessa Jackson IG # 0.03 10e3/ul Normal 0.00-0.03 [facility] Comment on above: Performed By: #### C BC #### [facility] [address] [place] [address] Dr. Tessa Jackson IG % 0.4 % Normal 0.0-0.5 [facility] Comment on above: Performed By: #### C BC #### [facility] [address] [place] [address] Dr. Tessa Jackson LYMPH # 1.0 103/ul Critically low 1.2-3.8 [facility] Comment on above: Performed By: #### C BC #### [facility] [address] [place] [address] Dr. Tessa Jackson Lymphocytes/100 WBC (Bld) 14.4 % Critically low 20.5-60.0 [facility] Comment on above: Performed By: #### C BC #### [facility] [address] [place] [address] Dr. Tessa Jackson MANUAL DIFF REQ NO Normal [facility] Comment on above: Performed By: #### C BC #### [facility] [address] [place] [address] Dr. Tessa Jackson MCH (RBC) [Entitic mass] 30.8 pg Normal 26.7-34.0 [facility] Comment on above: Performed By: #### C BC #### [facility] [address] [place] [address] Dr. Tessa Jackson MCHC (RBC) [Mass/Vol] 33.2 g/dL Normal 29.9-35.2 [facility] Comment on above: Performed By: #### C BC #### [facility] [address] [place] [address] Dr. Tessa Jackson MCV (RBC) [Entitic vol] 92.7 fL Normal 81.0-99.0 [facility] Comment on above: Performed By: #### C BC #### [facility] [address] [place] [address] Dr. Tessa Jackson MONO # 0.4 103/ul Normal 0.3-0.8 [facility] Comment on above: Performed By: #### C BC #### [facility] [address] [place] [address] Dr. Tessa Jackson Monocytes/100 WBC (Bld) 5.6 % Normal 1.7-12.0 [facility] Comment on above: Performed By: #### C BC #### [facility] [address] [place] [address] Dr. Tessa Jackson NEUT # 5.6 103/ul Normal 1.4-6.5 [facility] Comment on above: Performed By: #### C BC #### [facility] [address] [place] [address] Dr. Tessa Jackson Neutrophils/100 WBC (Bld) 79.5 % Critically high 43.0-75.0 [facility] Comment on above: Performed By: #### C BC #### [facility] [address] [place] [address] Dr. Tessa Jackson Platelet mean volume (Bld) [Entitic vol] 9.6 fL Normal 9.5-13.5 [facility] Comment on above: Performed By: #### C BC #### [facility] [address] [place] [address] Dr. Tessa Jackson PLT 298 103/ul Normal 150-450 [facility] Comment on above: Performed By: #### C BC #### [facility] [address] [place] [address] Dr. Tessa Jackson RBC 4.39 106/ul Normal 4.20-5.40 [facility] Comment on above: Performed By: #### C BC #### [facility] [address] [place] [address] Dr. Tessa Jackson WBC 7.1 103/ul Normal 4.0-11.0 [facility] Comment on above: Performed By: #### C BC #### [facility] [address] [place] [address] Dr. Tessa Jackson CRPon 02-03-2022 CRP [Mass/Vol] mg/L Normal <=1.0 [facility] Comment on above: Performed By: #### C MP, CRP, LIPID, TSH #### [facility] [address] [place] [address] Dr. Tessa Jackson GLYCOHEMOGLOBIN A1Con 2021 ADA RECOMMENDATION SEE BELOW Normal [facility] Comment on above: Result Comment: ADA RECOMMENDED LIMIT 4.0 - 6.0 ADA THERAPEUTIC TARGET < 7.0 ACTION SUGGESTED > 7.0 Performed By: #### A 1C #### [facility] [address] [place] [address] Dr. Tessa Jackson Glucose [Mass/Vol] 126 mg/dL Normal [facility] Comment on above: Performed By: #### A 1C #### [facility] [address] [address] [address] Tessa Jackson HbA1c (Bld) [Mass fraction] 6.0 % Normal 4.5-6.2 [facility] Comment on above: Performed By: #### A 1C #### [facility] [address] [address] [address] Tessa Jackson IRONon 02-03-2022 Iron [Mass/Vol] 92.0 ug/dL Normal 50.0-170.0 [facility] Comment on above: Performed By: #### I KATE #### [facility] [address] [address] [address] Tessa Jackson LIPID PROFILEon 02-03-2022 CHOL-HDL RATIO NORM SEE BELOW Normal [facility] Comment on above: Result Comment: 3.3 - 4.4 LOW RISK 4.4 - 7.1 AVERAGE RISK 7.1 - 11.0 MODERATE RISK >11.0 HIGH RISK Performed By: #### C MP, CRP, LIPID, TSH #### [facility] [address] [address] [address] Tessa Jackson Cholesterol [Mass/Vol] 385 mg/dL Critically high <=200 [facility] Comment on above: Performed By: #### C MP, CRP, LIPID, TSH #### [facility] [address] [address] [address] Tessa Jackson Cholesterol in HDL [Mass/Vol] 136 mg/dL Critically high 40-60 [facility] Comment on above: Performed By: #### C MP, CRP, LIPID, TSH #### [facility] [address] [address] [address] Tessa Jackson Cholesterol in LDL [Mass/Vol] 226.6 mg/dL Normal [facility] Comment on above: Performed By: #### C MP, CRP, LIPID, TSH #### [facility] [address] [address] [address] Tessa Jackson Cholesterol.total/Ch olesterol in HDL [Mass ratio] 2.8 {ratio} Normal [facility] Comment on above: Performed By: #### C MP, CRP, LIPID, TSH #### [facility] [address] [address] [address] Tessa Jackson HDL NORMAL > or = 60 mg/dl - LO W CARDIOVASCULAR RISK <40 mg/dl - HIGH CARDIOVASCULAR RISK Normal [facility] Comment on above: Performed By: #### C MP, CRP, LIPID, TSH #### [facility] [address] [address] [address] Tessa Jackson LDL CALC NORMAL SEE BELOW Normal [facility] Comment on above: Result Comment: <100 mg/dl OPTIMAL 100 - 129 mg/dl NEAR OR ABOVE OPTIMAL 130 - 159 mg/dl BORDERLINE HIGH 160 - 189 mg/dl HIGH >190 mg/dl VERY HIGH Performed By: #### C MP, CRP, LIPID, TSH #### [facility] [address] [address] [address] Tessa Jackson Triglyceride [Mass/Vol] 112 mg/dL Normal <=150 [facility] Comment on above: Performed By: #### C MP, CRP, LIPID, TSH #### [facility] [address] [address] [address] Tessa Jackson VLDL CALC 22.4 mg/dL Normal [facility] Comment on above: Performed By: #### C MP, CRP, LIPID, TSH #### [facility] [address] [address] [address] Tessa Jackson PROF 14(COMP METB)on 022 Albumin [Mass/Vol] 4.0 g/dL Normal 3.4-5.0 [facility] Comment on above: Performed By: #### C MP, CRP, LIPID, TSH #### [facility] [address] [address] [address] Tessa Jackson Albumin/Globulin [Mass ratio] 1.0 {ratio} Normal [facility] Comment on above: Performed By: #### C MP, CRP, LIPID, TSH #### [facility] [address] [place] [address] Dr. Tesas Jackson ALP [Catalytic activity/Vol] 139 U/L Critically high 46-116 [facility] Comment on above: Performed By: #### C MP, CRP, LIPID, TSH #### [facility] [address] [address] [address] Tessa Jackson ALT [Catalytic activity/Vol] 86 U/L Critically high 14-59 [facility] Comment on above: Performed By: #### C MP, CRP, LIPID, TSH #### [facility] [address] [address] [address] Tessa Jackson Anion gap [Moles/Vol] 14.8 mmol/L Normal [facility] Comment on above: Performed By: #### C MP, CRP, LIPID, TSH #### [facility] [address] [address] [address] Tessa Jackson AST [Catalytic activity/Vol] 23 U/L Normal 15-37 [facility] Comment on above: Performed By: #### C MP, CRP, LIPID, TSH #### [facility] [address] [place] [address] Dr. Tessa Jackson Bilirubin [Mass/Vol] 0.4 mg/dL Normal 0.2-1.0 [facility] Comment on above: Performed By: #### C MP, CRP, LIPID, TSH #### [facility] [address] [address] [address] Tessa Jackson Calcium [Mass/Vol] 10.0 mg/dL Normal 8.5-10.1 [facility] Comment on above: Performed By: #### C MP, CRP, LIPID, TSH #### [facility] [address] [address] [address] Tessa Jackson Chloride [Moles/Vol] 100 mmol/L Normal 98-107 [facility] Comment on above: Performed By: #### C MP, CRP, LIPID, TSH #### [facility] [address] [address] [address] Tessa Jackson CO2 [Moles/Vol] 28.0 mmol/L Normal 21.0-32.0 [facility] Comment on above: Performed By: #### C MP, CRP, LIPID, TSH #### [facility] [address] [address] [address] Tessa Jackson Creatinine [Mass/Vol] 0.95 mg/dL Normal 0.55-1.02 [facility] Comment on above: Performed By: #### C MP, CRP, LIPID, TSH #### [facility] [address] [place] [address] Dr. Tessa Jackson EGFR-AF MACEDONIAN >60 Normal >=60 [facility] Comment on above: Performed By: #### C MP, CRP, LIPID, TSH #### [facility] [address] [place] [address] Dr. Tessa Jackson EGFR-NON AF MACEDONIAN >60 Normal >=60 [facility] Comment on above: Performed By: #### C MP, CRP, LIPID, TSH #### [facility] [address] [place] [address] Dr. Tessa Jackson Globulin (S) [Mass/Vol] 3.9 g/dL Normal [facility] Comment on above: Performed By: #### C MP, CRP, LIPID, TSH #### [facility] [address] [place] [address] Dr. Tessa Jackson Glucose [Mass/Vol] 127 mg/dL Critically high 74-106 [facility] Comment on above: Performed By: #### C MP, CRP, LIPID, TSH #### [facility] [address] [place] [address] Dr. Tessa Jackson Potassium [Moles/Vol] 4.8 mmol/L Normal 3.5-5.1 [facility] Comment on above: Performed By: #### C MP, CRP, LIPID, TSH #### [facility] [address] [place] [address] Dr. Tessa Jackson Protein [Mass/Vol] 7.9 g/dL Normal 6.4-8.2 [facility] Comment on above: Performed By: #### C MP, CRP, LIPID, TSH #### [facility] [address] [place] [address] Dr. Tessa Jackson Sodium [Moles/Vol] 138 mmol/L Normal 136-145 [facility] Comment on above: Performed By: #### C MP, CRP, LIPID, TSH #### [facility] [address] [address] [address] Tessa Jackson Urea nitrogen [Mass/Vol] 14.0 mg/dL Normal 7.0-18.0 [facility] Comment on above: Performed By: #### C MP, CRP, LIPID, TSH #### [facility] [address] [address] [address] Tessa Jackson Urea nitrogen/Creatinine [Mass ratio] 14.7 mg/mg Normal [facility] Comment on above: Performed By: #### C MP, CRP, LIPID, TSH #### [facility] [address] [address] [address] Tessa Jackson [facility] SED [facility]ATE 28 mm/hr Normal <=30 [facility] Comment on above: Performed By: #### S EDR #### [facility] [address] [place] [address] Dr. Tessa Jackson TSHon 02-03-2022 TSH 0.639 uIU/mL Normal 0.358-3.740 [facility] Comment on above: Performed By: #### C MP, CRP, LIPID, TSH #### [facility] [address] [address] [address] Tessa Jackson Coding Summary.on 04-10-2019 Coding Summary. CODING DATE: 019 [facility] STATUS: Home (Routine DC) PAYOR: [facility] [employer] ADMIT DX: REASON FOR VISIT DX: M54.2 [...] CphT Date Saved: 04/10/2019 07:12 am Normal [facility] Consultation Noteon 04-10-20 19 Consultation Note [...] concerns. Chauncey Alicea M.D. gls Dictated: 04/02/2019 #[id number] Typed: 04/08/2019 #[id number] cc: Jaden Fritz M.D. [facility] Comment on above: Result Comment: Elec tronically Signed By: Deanne QUINTERO, Chauncey Moncada\.br\Date and Time Signed: 04/10/19 09:50 EST Coding Summary.on 03-20-2019 Coding Summary. CODING DATE: 019 FINAL [facility] STATUS: Home (Routine DC) PAYOR: [facility] [employer] ADMIT DX: REASON FOR VISIT DX: M50.10 [...] Verduzco Date Saved: 03/20/2019 03:38 pm Normal [facility] Coding Summary.on 03-19-2019 Coding Summary. CODING DATE: 019 FINAL [facility] STATUS: Home (Routine DC) PAYOR: [facility] [employer] APC DESCRIPTION 5442 Level 2 Nerve Injections [...] [place] Date Saved: 03/19/2019 08:43 am Normal [facility] Consultation Noteon 03-19-20 Consultation Note HOSPITAL [...] response. Chauncey Alicea M.D. gls Dictated: 03/11/2019 #[id number] Typed: 03/13/2019 #[id number] cc: Jaden Fritz M.D. [facility] Comment on above: Result Comment: Elec tronically Signed By: Chauncey Alicea MD\.br\Date and Time Signed: 03/19/19 08:22 EDT Main OR Intraoperative Recor don 03-18-2019 Main OR Intraoperative Record IntraOp Document Type [facility] Summary Primary Physician: Chauncey Alicea MD Finalized Date/Time: 03/18/19 08:19:23 Pt. Name: PERCY SEVERINO Trang MurilloB./Sex: 1970 Female Med Rec #: [id number] Physician: Chauncey Alicea MD Financial #: [id number] Pt. Type: P Room/Bed: / Admit/Disch: 03/18/19 [...] Role Performed Anesthesiologist of Surgeon - Primary Reservations Agent - Primary Record Time In 03/18/19 08:12:00 [...] Performed Scrub - Primary Scrub - Other Fairing Worker Time In 03/18/19 08:12:00 03/18/19 08:12:00 03/18/19 [...] X-ray Applicable) PreOp Antibiotic No Time Out tSeven FLORIAN, Anuradha C, Given Participants Zhang Carrion [...] and tissue Entry 1 Skin Integrity Intact, [place], Warm, and Skin Abnormality No Dry Outcomes [...] Signed By: Zhang Carrion RN 03/18/19 08:19 [facility] Main OR Preoperative Recordo n 03-18-2019 Main OR Preoperative Record Holding Area Document Type FT Summary Primary Physician: Chauncey Alicea MD Finalized Date/Time: 03/18/19 07:50:56 Pt. Name: SEVERINO GREER /Sex: 1970 Female Med Rec #: [id number] Physician: Chauncey Alicea MD Financial #: [id number] Pt. Type: P Room/Bed: / Admit/Disch: 03/18/19 [...] By: Liseth Delacruz RN 03/18/19 07:50 Normal [facility] Operative Reporton 9 Operative Report Patient: [...] 113 mmHg SpO2 99 % . Normal [facility] Comment on above: Result Comment: Elec tronically Signed By: Deanne QUINTERO, Chauncey Moncada\.aston\Date and Time Signed: 03/18/19 08:20 EDT Coding Summary.on 02-28-2019 Coding Summary. CODING DATE: 019 FINAL [facility] STATUS: Home (Routine DC) PAYOR: [facility] [employer] [facility] DESCRIPTION 5442 Level 2 Nerve Injections [...] Verduzco Date Saved: 02/28/2019 10:26 am Normal [facility] Main OR Intraoperative Recor don 02-26-2019 Main OR Intraoperative Record IntraOp Document Type FTPM Summary Primary Physician: Chauncey Alicea MD Finalized Date/Time: 02/26/19 08:23:08 Pt. Name: SEVERINO GREER Trang MurilloB./Sex: 1970 Female Med Rec #: [id number] Physician: Chauncey Alicea MD Financial #: [id number] Pt. Type: P Room/Bed: / Admit/Disch: 02/26/19 [...] Role Performed Surgeon - Primary Anesthesiologist of Reservations Agent - Primary Record Time In 02/26/19 08:17:00 [...] Performed Scrub - Other Scrub - Primary Fairing Worker Time In 02/26/19 08:17:00 02/26/19 08:17:00 02/26/19 [...] and tissue Entry 1 Skin Integrity Intact, [place], Warm, and Skin Abnormality No Dry Outcomes [...] By: Trinidad Vega RN 02/26/19 08:23 Normal [facility] Main OR Preoperative Recordo n 02-26-2019 Main OR Preoperative Record Holding Area Document Type FTPM Summary Primary Physician: Chauncey Alicea MD Finalized Date/Time: 02/26/19 07:44:06 Pt. Name: SEVERINO GREER Trang Yu./Sex: 1970 Female Med Rec #: [id number] Physician: Chauncey Alicea MD Financial #: [id number] Pt. Type: P Room/Bed: / Admit/Disch: 02/26/19 [...] By: Malorie Tolbert RN 02/26/19 07:44 Normal [facility] Operative Reporton 9 Operative Report Patient: [...] with post-procedure instructions. No apparent complications. Normal [facility] Comment on above: Result Comment: Elec [...] Acute carpal tunnel syndrome / SNOMED CT 51569985 / Confirmed, Active Problems (1) Acute carpal tunnel syndrome Histories Past Medical History: No active or resolved past medical history items have been selected or recorded. Family History: No family history items have been selected or recorded. Procedure history: Carpal tunnel release ([id number]). Comments: 01/15/2019 10:32 - Day Colleen WEAVER [...] Results review: No qualifying data available. Plan [place] [employer] Anesthesiologists (ASA) physical status classification: Class II. Anesthetic Preoperative Plan Anesthesia: Monitored anesthesia care. Anesthetic plan, risks, benefits, and alternatives discussed with the patient and/or family. Pt. and/or family present and agree to proceed as planned.. Discussed with pt the importance of abstaining from tobacco products, and offered counseling if pt desires.. Normal [facility] Comment on above: Result Comment: Elec tronically Signed By: Ellis Falk JR, DO.aston\Date and Time Signed: 02/26/19 08:34 EDT Coding Summary.on 02-13-2019 Coding Summary. CODING DATE: 019 FINAL [facility] STATUS: Home (Routine DC) PAYOR: [facility] [employer] ADMIT DX: REASON FOR VISIT DX: M54.2 Cervicalgia M79.603 Pain in arm, unspecified FINAL DX: PRINCIPAL: M54.12 Radiculopathy, cervical region SECONDARY: M50.20 Other cervical disc displacement, unspecified cervical region Z79.899 Other halfway (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 However, the narrative phrase printed from the coding software may appear abbreviated, or result in slightly different terminology. Coded By: Denise Garcia CphT Date Saved: 02/13/2019 07:11 am [facility] Consultation Noteon 02-12-20 Consultation Note HOSPITAL [...] her pain as well. Treatments have included resident care aide with Dr. Mars with minimal relief, and [...] not responded to appropriate conservative care including resident care aide and regular use of non-steroidal anti-inflammatory medications. [...] meanwhile. Chauncey Alicea M.D. aek Dictated: 02/05/2019 #[id number] Typed: 02/08/2019 #[id number] cc: Chauncey Alicea M.D. Tracie Mars M.D. Doyle Bustos MD [facility] Comment on above: Result Comment: Elec [...] female left-hand dominant. 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 Two [...] surgical options. MD marika Kendall Dictated: 01/15/2019 #[id number] Typed: 01/17/2019 #[id number] cc: Tracie Mars M.D. Doyle Bustos MD [facility] Comment on above: Result Comment: Elec tronically Signed By: Akash QUINTERO, Doyle Bashir\.br\Date and Time Signed: 01/25/19 16:46 EDT Coding Summary.on 01-18-2019 Coding Summary. CODING DATE: 019 [facility] STATUS: Home (Routine DC) PAYOR: [facility] [employer] ADMIT DX: REASON FOR VISIT DX: M54.2 [...] Garcia CphT Date Saved: 01/18/2019 09:40 am [facility] Vital Signs Date Time Vital Sign Value Performing Clinician Facility 01-18-2023 10:10-0400 Body height 167.64 cm Lili [facility] Other [facility] 01-18-2023 10:10-0400 Body mass index (BMI) [Ratio] 26.31 kg/m2 Lili [facility] Other [facility] 01-18-2023 10:10-0400 Body weight 73.94 kg Lili Eaton Other [facility] Other 01-18-2023 10:10-0400 Diastolic blood pressure 90 mm[Hg] L[facility] Other [facility] 01-18-2023 10:10-0400 Respiratory rate 18 /min Lili E[facility] Other [facility] Other 01-18-2023 10:10-0400 SaO2% (BldA) [Mass fraction] 100 % Lili [facility] Other [facility] Other 01-18-2023 10:10-0400 Systolic blood pressure 143 mm[Hg] L[facility] Other [facility] Other Encounters Encounter Date Encounter Type Care Provider Facility Start: 01-18-2023 End: 01-18-2023 ambulatory Lili E[facility] Other [facility] Start: 01-18-2023 Office outpatient vi sit 15 minutes [facility] Start: 02-03-2022 End: 02-04-[address] TRACIE MARS Facility:[facility] Procedures Date Procedure Procedure Detail Performing Clinician Start: 03-19-2019 Anesthesia consultation Start: 03-18-2019 Anesthesia consultation Payers Date Payer Category Payer Unknown [id number] 1961 Unknown [id number] [facility] [id number] Social History Date Type Detail Facility Sex Assigned At [facility] Other Evaluation note 01-18-2023 Note Date & [...] Pt understood and agreed to tx plan. [facility] Other Summary Purpose Family History No Family [...] Acute carpal tunnel syndrome / SNOMED CT 54728099 / Confirmed Physical Examination Intake and Output Pt. denies significant n/v, and is tolerating p.o. Vital Signs (last 24 hrs) Last Charted Temp Oral 36.5 DegC (FEB 26 08:27) (more content not included)... Additional Source Comments INFORMATION SOURCE (unrecogn ized section and content) DATE CREATED AUTHOR 04/10/2019 [facility] DATE CREATED AUTHOR AUTHOR'S ORGANIZ ATION 02/04/2022 [facility] REASON FOR VISIT (unrecogniz ed section and [...] BE BASED ON THE PRIMARY CLINICAL RECORDS. [email or web address] [facility]. provides no warranty or guarantee of the accuracy or completeness of information in this document.
== END 2024-03-12 09:35 | disposition home or self-care (01) ==
LOC: MRI 09:34
PROVIDERS: PCP Family Medicine; Visit Provider Family Medicine
DX: M54.12 Radiculopathy, cervical region (principal); R22.30 Localized swelling, mass and lump, unspecified upper limb; M50.30 Other cervical disc degeneration, unspecified cervical region
CPT/HCPCS: 72141

== ENCOUNTER 2024-05-13 06:33 | Outpatient (OUT) | payer BC, SELFPAY ==
--- NOTE | 2024-05-13 | XR_ITS ---
The [address] [address] Patient Name: SEVERINO GREER MRN: [id number] date: 1970 Sex: F Assigned Patient Location: LAB Current Patient Location: LAB Accession/Order Number: [id number] Exam Date: 05/13/2024 06:57 Report Date: 05/13/2024 07:57 At the request of: CJ DASH Procedure: XR chest 2V EXAMINATION: XR chest 2V HISTORY: Z01.812 PRE OP, M50.30 DDD COMPARISON: No relevant comparison available. FINDINGS: LUNGS: No significant pulmonary parenchymal abnormalities. VASCULATURE: No increased pulmonary vasculature. PLEURA: No pneumothorax, effusion, or pleural thickening. CARDIAC: No cardiomegaly or cardiac silhouette abnormality. MEDIASTINUM: No visible mass or adenopathy. BONES: No fracture or visible bone lesion. OTHER: Negative. XR/XR chest 2V IMPRESSION: 1. Normal chest. Electronically authenticated by: VINCENT SHIRLEY Date: 05/13/2024 07:57
[2024-05-13 06:56] LABS: Basophils Absolute Auto 0.1 10^3/uL (0.0-0.1); Basophils Percent Auto 1.2 % (0.2-2.0); Eosinophils Absolute Auto 0.3 10^3/uL (0.0-0.7); Eosinophils Percent Auto 5.8 % (0.9-7.0); Hematocrit 40.3 % (36.0-48.0); Hemoglobin 13.2 g/dL (12.0-16.0); Immature Granulocytes Abs Auto 0.01 10^3/uL (0.00-0.03); Immature Granulocytes Pct Auto 0.2 % (0.0-0.5); Lymphocytes Absolute Auto 2.3 10^3/uL (1.2-3.8); Lymphocytes Percent Auto 45.2 % (20.5-60.0); Mean Corpuscular HGB Conc 32.8 g/dL (29.9-35.2); Mean Corpuscular Hemoglobin 30.6 pg (26.7-34.0); Mean Corpuscular Volume 93.5 fL (81.0-99.0); Mean Platelet Volume 9.8 fL (9.5-13.5); Monocytes Absolute Auto 0.5 10^3/uL (0.3-0.8); Monocytes Percent Auto 9.7 % (1.7-12.0); Neutrophils Percent Auto 37.9 % (43.0-75.0); Platelet Count 318 10^3/uL (150-450); Red Blood Count 4.31 10^6/uL (4.20-5.40); Red Cell Distribution Width 12.2 % (11.0-15.0); White Blood Count 5.2 10^3/uL (4.0-11.0)
[2024-05-13 07:06] LABS: Anion Gap 13.1; BUN Creatinine Ratio 16.3; Calcium 9.7 mg/dL (8.5-10.1); Carbon Dioxide 28.6 mmol/L (21.0-32.0); Chloride 106 mmol/L (98-107); Estimated GFR (African America >60 (>=60 mL/min/1.73m^2); Estimated GFR (Non-African Ame >60 (>=60 mL/min/1.73m^2); Glucose 97 mg/dL (74-106); Potassium 4.7 mmol/L (3.5-5.1); Sodium 143 mmol/L (136-145)
--- NOTE | 2024-05-13 07:06 | ECG_ITS ---
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
[2024-05-13 07:10] LABS: INR 1.03; Partial Thromboplastin Time 24.9 sec (22.3-36.2); Prothrombin Time 10.9 sec (9.0-11.6)
== END 2024-05-13 06:34 | disposition home or self-care (01) ==
LOC: LAB 06:35
PROVIDERS: PCP Family Medicine; Visit Provider Physician Assistant
DX: Z01.812 Encounter for preprocedural laboratory examination (principal); M50.30 Other cervical disc degeneration, unspecified cervical region
CPT/HCPCS: 36415; 71046; 80048; 85025; 85610; 85730; 87081; 93005

== ENCOUNTER 2024-07-15 09:59 | Outpatient (OUT) | payer BC, SELFPAY ==
--- NOTE | 2024-07-15 | XR_ITS ---
The [address] [address] Patient Name: SEVERINO GREER MRN: [id number] date: 1970 Sex: F Assigned Patient Location: Current Patient Location: Accession/Order Number: [id number] Exam Date: 07/15/2024 10:05 Report Date: 07/16/2024 09:36 At the request of: CJ DASH Procedure: XR cervical spine 2-3V EXAMINATION: XR cervical spine 2-3V HISTORY: CERVICAL SPINE PAIN COMPARISON: 02/23/2024 FINDINGS: BONES: Normal alignment with no acute fracture or spondylolisthesis. Anterior fusion C5-C7 with no mechanical failure. Mild spondylosis. Moderate facet osteoarthropathy DISC SPACES: Interbody spacers C5-C7 PARASPINOUS: Negative. No paraspinous abnormality is seen. OTHER: Negative. XR/XR cervical spine 2-3V IMPRESSION: Anterior fusion C5-C7 with no mechanical failure. Electronically authenticated by: LIZZETH BLACKBURN Date: 07/16/2024 09:36
--- OUTSIDE RECORDS SUMMARY | 2024-07-15 10:05 | XMS_ITS | CCD ---
Author Organization [facility] Care Team Providers Care Wellness Ambassador Name Role Phone DR TRACIE MARS Attending [...] INSULINon 02-04-2022 Insulin 22.5 uIU/mL Normal 2.6-24.9 [facility] Comment on above: Performed By: #### I NSULIN #### [facility] [address] [place] [address] Dr. Tessa Jackson T4, T3U, FTI LABCORPon 02-04 Free Thyroxine Index 1.5 Normal 1.2-4.9 [facility] Comment on above: Performed By: #### T HYLC #### [facility] [address] [place] [address] Dr. Tessa Jackson T3 Uptake 27 % Normal 24-39 [facility] Comment on above: Performed By: #### T HYLC #### [facility] [address] [place] [address] Dr. Tessa Jackson T4 [Mass/Vol] 5.7 ug/dL Normal 4.5-12.0 [facility] Comment on above: Performed By: #### T HYLC #### [facility] [address] [place] [address] Dr. Tessa Jackson CBC AUTO DIFFon 02-03-2022 BASO # 0.0 103/ul Normal 0.0-0.1 [facility] Comment on above: Performed By: #### C BC #### [facility] [address] [place] [address] Dr. Tessa Jackson Basophils/100 WBC (Bld) 0.1 % Critically low 0.2-2.0 [facility] Comment on above: Performed By: #### C BC #### [facility] [address] [place] [address] Dr. Tessa Jackson EO # 0.0 103/ul Normal 0.0-0.[address] [facility] Comment on above: Performed By: #### C BC #### [facility] [address] [place] [address] Dr. Tessa Jackson Eosinophils/100 WBC (Bld) 0.0 % Critically low 0.9-7.[address] [facility] Comment on above: Performed By: #### C BC #### [facility] [address] [place] [address] Dr. Tessa Jackson Erythrocyte distribution width (RBC) [Ratio] 13.1 % Normal 11.0-15.0 [facility] Comment on above: Performed By: #### C BC #### [facility] [address] [place] [address] Dr. Tessa Jackson Hematocrit (Bld) [Volume fraction] 40.7 % Normal 36.0-48.0 [facility] Comment on above: Performed By: #### C BC #### [facility] [address] [place] [address] Dr. Tessa Jackson Hemoglobin (Bld) [Mass/Vol] 13.5 g/dL Normal 12.0-16.0 [facility] Comment on above: Performed By: #### C BC #### [facility] [address] [place] [address] Dr. Tessa Jackson IG # 0.03 10e3/ul Normal 0.00-0.[address] [facility] Comment on above: Performed By: #### C BC #### [facility] [address] [place] [address] Dr. Tessa Jackson IG % 0.4 % Normal 0.0-0.[address] [facility] Comment on above: Performed By: #### C BC #### [facility] [address] [place] [address] Dr. Tessa Jackson LYMPH # 1.0 103/ul Critically low 1.2-3.8 [facility] Comment on above: Performed By: #### C BC #### [facility] [address] [place] [address] Dr. Tessa Jackson Lymphocytes/100 WBC (Bld) 14.4 % Critically low 20.5-60.[address] [facility] Comment on above: Performed By: #### C BC #### [facility] [address] [place] [address] Dr. Tessa Jackson MANUAL DIFF REQ NO Normal [facility] Comment on above: Performed By: #### C BC #### [facility] [address] [place] [address] Dr. Tessa Jackson MCH (RBC) [Entitic mass] 30.8 pg Normal 26.7-34.[address] [facility] Comment on above: Performed By: #### C BC #### [facility] [address] [place] [address] Dr. Tessa Jackson MCHC (RBC) [Mass/Vol] 33.2 g/dL Normal 29.9-35.[address] [facility] Comment on above: Performed By: #### C BC #### [facility] [address] [place] [address] Dr. Tessa Jackson MCV (RBC) [Entitic vol] 92.7 fL Normal 81.0-99.[address] [facility] Comment on above: Performed By: #### C BC #### [facility] [address] [place] [address] Dr. Tessa Jackson MONO # 0.4 103/ul Normal 0.3-0.[address] [facility] Comment on above: Performed By: #### C BC #### [facility] [address] [place] [address] Dr. Tessa Jackson Monocytes/100 WBC (Bld) 5.6 % Normal 1.7-12.[address] [facility] Comment on above: Performed By: #### C BC #### [facility] [address] [place] [address] Dr. Tessa Jackson NEUT # 5.6 103/ul Normal 1.4-6.[address] [facility] Comment on above: Performed By: #### C BC #### [facility] [address] [place] [address] Dr. Tessa Jackson Neutrophils/100 WBC (Bld) 79.5 % Critically high 43.0-75.0 [facility] Comment on above: Performed By: #### C BC #### [facility] [address] [place] [address] Dr. Tessa Jackson Platelet mean volume (Bld) [Entitic vol] 9.6 fL Normal 9.5-13.5 [facility] Comment on above: Performed By: #### C BC #### [facility] [address] [place] [address] Dr. Tessa Jackson PLT 298 103/ul Normal 150-[address] [facility] Comment on above: Performed By: #### C BC #### [facility] [address] [place] [address] Dr. Tessa Jackson RBC 4.39 106/ul Normal 4.20-5.40 [facility] Comment on above: Performed By: #### C BC #### [facility] [address] [place] [address] Dr. Tessa Jackson WBC 7.1 103/ul Normal 4.0-11.0 [facility] Comment on above: Performed By: #### C BC #### [facility] [address] [place] [address] Dr. Tessa Jackson CRPon 02-03-2022 CRP [Mass/Vol] mg/L Normal <=1.0 [facility] Comment on above: Performed By: #### C MP, CRP, LIPID, TSH #### [facility] [address] [place] [address] Dr. Tessa Jackson GLYCOHEMOGLOBIN A1Con 2021 ADA RECOMMENDATION SEE BELOW Normal [facility] Comment on above: Result Comment: ADA RECOMMENDED LIMIT 4.0 - 6.0 ADA THERAPEUTIC TARGET < 7.0 ACTION SUGGESTED > 7.0 Performed By: #### A 1C #### [facility] [address] [place] [address] Dr. Tessa Jackson Glucose [Mass/Vol] 126 mg/dL Normal [facility] Comment on above: Performed By: #### A 1C #### [facility] [address] [address] [address] Tessa Jackson HbA1c (Bld) [Mass fraction] 6.0 % Normal 4.5-6.2 [facility] Comment on above: Performed By: #### A 1C #### [facility] [address] [address] [address] Tessa Jackson IRONon 02-03-2022 Iron [Mass/Vol] 92.0 ug/dL Normal 50.0-170.0 [facility] Comment on above: Performed By: #### I KATE #### [facility] [address] [address] [address] Tessa Jackson LIPID PROFILEon 02-03-2022 CHOL-HDL RATIO NORM SEE BELOW Normal [facility] Comment on above: Result Comment: 3.3 - 4.4 LOW RISK 4.4 - 7.1 AVERAGE RISK 7.1 - 11.0 MODERATE RISK >11.0 HIGH RISK Performed By: #### C MP, CRP, LIPID, TSH #### [facility] [address] [address] [address] Tessa Jackson Cholesterol [Mass/Vol] 385 mg/dL Critically high <=200 [facility] Comment on above: Performed By: #### C MP, CRP, LIPID, TSH #### [facility] [address] [address] [address] Tessa Jackson Cholesterol in HDL [Mass/Vol] 136 mg/dL Critically high 40-60 [facility] Comment on above: Performed By: #### C MP, CRP, LIPID, TSH #### [facility] [address] [address] [address] Tessa Jackson Cholesterol in LDL [Mass/Vol] 226.6 mg/dL Normal [facility] Comment on above: Performed By: #### C MP, CRP, LIPID, TSH #### [facility] [address] [address] [address] Tessa Jackson Cholesterol.total/Ch olesterol in HDL [Mass ratio] 2.8 {ratio} Normal [facility] Comment on above: Performed By: #### C MP, CRP, LIPID, TSH #### [facility] [address] [address] [address] Tessa Jackson HDL NORMAL > or = 60 mg/dl - LO W CARDIOVASCULAR RISK <40 mg/dl - HIGH CARDIOVASCULAR RISK Normal [facility] Comment on above: Performed By: #### C MP, CRP, LIPID, TSH #### [facility] [address] [address] [address] Tessa Jackson LDL CALC NORMAL SEE BELOW Normal [facility] Comment on above: Result Comment: <100 mg/dl OPTIMAL 100 - 129 mg/dl NEAR OR ABOVE OPTIMAL 130 - 159 mg/dl BORDERLINE HIGH 160 - 189 mg/dl HIGH >190 mg/dl VERY HIGH Performed By: #### C MP, CRP, LIPID, TSH #### [facility] [address] [address] [address] Tessa Jackson Triglyceride [Mass/Vol] 112 mg/dL Normal <=150 [facility] Comment on above: Performed By: #### C MP, CRP, LIPID, TSH #### [facility] [address] [address] [address] Tessa Jackson VLDL CALC 22.4 mg/dL Normal [facility] Comment on above: Performed By: #### C MP, CRP, LIPID, TSH #### [facility] [address] [address] [address] Tessa Jackson PROF 14(COMP METB)on 022 Albumin [Mass/Vol] 4.0 g/dL Normal 3.4-5.0 [facility] Comment on above: Performed By: #### C MP, CRP, LIPID, TSH #### [facility] [address] [address] [address] Tessa Jackson Albumin/Globulin [Mass ratio] 1.0 {ratio} Normal [facility] Comment on above: Performed By: #### C MP, CRP, LIPID, TSH #### [facility] [address] [place] [address] Dr. Tessa Jackson ALP [Catalytic activity/Vol] 139 U/L Critically high 46-116 [facility] Comment on above: Performed By: #### C MP, CRP, LIPID, TSH #### [facility] [address] [address] [address] Tessa Jackson ALT [Catalytic activity/Vol] 86 U/L Critically high 14-59 [facility] Comment on above: Performed By: #### C MP, CRP, LIPID, TSH #### [facility] [address] [address] [address] Tessa Jackson Anion gap [Moles/Vol] 14.8 mmol/L Normal [facility] Comment on above: Performed By: #### C MP, CRP, LIPID, TSH #### [facility] [address] [address] [address] Tessa Jackson AST [Catalytic activity/Vol] 23 U/L Normal 15-37 [facility] Comment on above: Performed By: #### C MP, CRP, LIPID, TSH #### [facility] [address] [place] [address] Dr. Tessa Jackson Bilirubin [Mass/Vol] 0.4 mg/dL Normal 0.2-1.0 [facility] Comment on above: Performed By: #### C MP, CRP, LIPID, TSH #### [facility] [address] [address] [address] Tessa Jackson Calcium [Mass/Vol] 10.0 mg/dL Normal 8.5-10.1 [facility] Comment on above: Performed By: #### C MP, CRP, LIPID, TSH #### [facility] [address] [address] [address] Tessa Jackson Chloride [Moles/Vol] 100 mmol/L Normal 98-107 [facility] Comment on above: Performed By: #### C MP, CRP, LIPID, TSH #### [facility] [address] [address] [address] Tessa Jackson CO2 [Moles/Vol] 28.0 mmol/L Normal 21.0-32.0 [facility] Comment on above: Performed By: #### C MP, CRP, LIPID, TSH #### [facility] [address] [address] [address] Tessa Jackson Creatinine [Mass/Vol] 0.95 mg/dL Normal 0.55-1.02 [facility] Comment on above: Performed By: #### C MP, CRP, LIPID, TSH #### [facility] [address] [place] [address] Dr. Tessa Jackson EGFR-AF ITALIAN >60 Normal >=60 [facility] Comment on above: Performed By: #### C MP, CRP, LIPID, TSH #### [facility] [address] [place] [address] Dr. Tessa Jackson EGFR-NON AF ITALIAN >60 Normal >=60 [facility] Comment on above: Performed By: #### C MP, CRP, LIPID, TSH #### [facility] [address] [place] [address] Dr. Tessa Jackson Globulin (S) [Mass/Vol] 3.9 g/dL Normal [facility] Comment on above: Performed By: #### C MP, CRP, LIPID, TSH #### [facility] [address] [place] [address] Dr. Tessa Jackson Glucose [Mass/Vol] 127 mg/dL Critically high 74-106 [facility] Comment on above: Performed By: #### C MP, CRP, LIPID, TSH #### [facility] [address] [place] [address] Dr. Tessa Jackson Potassium [Moles/Vol] 4.8 mmol/L Normal 3.5-5.1 [facility] Comment on above: Performed By: #### C MP, CRP, LIPID, TSH #### [facility] [address] [place] [address] Dr. Tessa Jackson Protein [Mass/Vol] 7.9 g/dL Normal 6.4-8.2 [facility] Comment on above: Performed By: #### C MP, CRP, LIPID, TSH #### [facility] [address] [place] [address] Dr. Tessa Jackson Sodium [Moles/Vol] 138 mmol/L Normal 136-145 [facility] Comment on above: Performed By: #### C MP, CRP, LIPID, TSH #### [facility] [address] [address] [address] Tessa Jackson Urea nitrogen [Mass/Vol] 14.0 mg/dL Normal 7.0-18.0 [facility] Comment on above: Performed By: #### C MP, CRP, LIPID, TSH #### [facility] [address] [address] [address] Tessa Jackson Urea nitrogen/Creatinine [Mass ratio] 14.7 mg/mg Normal [facility] Comment on above: Performed By: #### C MP, CRP, LIPID, TSH #### [facility] [address] [address] [address] [facility] 28 mm/hr Normal <=30 [facility] Comment on above: Performed By: #### S EDR #### [facility] [address] [place] [address] Dr. Tessa Jackson TSHon 02-03-2022 TSH 0.639 uIU/mL Normal 0.358-3.740 [facility] Comment on above: Performed By: #### C MP, CRP, LIPID, TSH #### [facility] [address] [address] [address] Tessa Jackson Coding Summary.on 04-10-2019 Coding Summary. CODING DATE: 019 [facility] STATUS: Home (Routine DC) PAYOR: [employer] ADMIT DX: REASON FOR VISIT DX: M54.2 [...] CphT Date Saved: 04/10/2019 07:12 am Normal [facility] Consultation Noteon 04-10-20 19 Consultation Note HOSPITAL [...] concerns. Chauncey Alicea M.D. gls Dictated: 04/02/2019 #[id number] Typed: 04/08/2019 #[id number] cc: Jaden Fritz M.D. [facility] Comment on above: Result Comment: Elec tronically Signed By: Deanne QUINTERO, Chauncey Moncada\.br\Date and Time Signed: 04/10/19 09:50 EST Coding Summary.on 03-20-2019 Coding Summary. CODING DATE: 019 FINAL [facility] STATUS: Home (Routine DC) PAYOR: [employer] ADMIT DX: REASON FOR VISIT DX: M50.10 [...] Verduzco Date Saved: 03/20/2019 03:38 pm Normal [facility] Coding Summary.on 03-19-2019 Coding Summary. CODING DATE: 019 FINAL [facility] STATUS: Home (Routine DC) PAYOR: [employer] APC DESCRIPTION 5442 Level 2 Nerve Injections [...] [place] Date Saved: 03/19/2019 08:43 am Normal [facility] Consultation Noteon 03-19-20 Consultation Note HOSPITAL REGULATIONS [...] response. Chauncey Alicea M.D. gls Dictated: 03/11/2019 #[id number] Typed: 03/13/2019 #[id number] cc: Jaden Fritz M.D. [facility] Comment on above: Result Comment: Elec tronically Signed By: Chauncey Alicea MD\.br\Date and Time Signed: 03/19/19 08:22 EDT Main OR Intraoperative Recor don 03-18-2019 Main OR Intraoperative Record IntraOp Document Type [facility] Summary Primary Physician: Chauncey Alicea MD Finalized Date/Time: 03/18/19 08:19:23 Pt. Name: PERCY SEVERINO Trang MurilloB./Sex: 1970 Female Med Rec #: [id number] Physician: Chauncey Alicea MD Financial #: [id number] Pt. Type: P Room/Bed: / Admit/Disch: 03/18/19 [...] Role Performed Anesthesiologist of Surgeon - Primary Stencil Machine Operator - Primary Record Time In 03/18/19 08:12:00 [...] Performed Scrub - Primary Scrub - Other Director [employer] Time In 03/18/19 08:12:00 03/18/19 08:12:00 03/18/19 [...] and tissue Entry 1 Skin Integrity Intact, [place], Warm, and Skin Abnormality No Dry Outcomes [...] Signed By: Zhang Carrion RN 03/18/19 08:19 [facility] Main OR Preoperative Recordo n 03-18-2019 Main OR Preoperative Record Holding Area Document Type FT Summary Primary Physician: Chauncey Alicea MD Finalized Date/Time: 03/18/19 07:50:56 Pt. Name: SEVERINO GREER /Sex: 1970 Female Med Rec #: [id number] Physician: Chauncey Alicea MD Financial #: [id number] Pt. Type: P Room/Bed: / Admit/Disch: 03/18/19 [...] By: Liseth Delacruz RN 03/18/19 07:50 Normal [facility] Operative Reporton 9 Operative Report Patient: KARISSA [...] 113 mmHg SpO2 99 % . Normal [facility] Comment on above: Result Comment: Elec tronically Signed By: Deanne QUINTERO, Chauncey Moncada\.aston\Date and Time Signed: 03/18/19 08:20 EDT Coding Summary.on 02-28-2019 Coding Summary. CODING DATE: 019 FINAL [facility] STATUS: Home (Routine DC) PAYOR: [employer] APC DESCRIPTION 5442 Level 2 Nerve Injections [...] Verduzco Date Saved: 02/28/2019 10:26 am Normal [facility] Main OR Intraoperative Recor don 02-26-2019 Main OR Intraoperative Record IntraOp Document Type FTPM Summary Primary Physician: Chauncey Alicea MD Finalized Date/Time: 02/26/19 08:23:08 Pt. Name: SEVERINO GREER Trang MurilloB./Sex: 1970 Female Med Rec #: [id number] Physician: Chauncey Alicea MD Financial #: [id number] Pt. Type: P Room/Bed: / Admit/Disch: 02/26/19 [...] Role Performed Surgeon - Primary Anesthesiologist of Stencil Machine Operator - Primary Record Time In 02/26/19 08:17:00 [...] Performed Scrub - Other Scrub - Primary Director [employer] Time In 02/26/19 08:17:00 02/26/19 08:17:00 02/26/19 [...] and tissue Entry 1 Skin Integrity Intact, [place], Warm, and Skin Abnormality No Dry Outcomes [...] By: Trinidad Vega RN 02/26/19 08:23 Normal [facility] Main OR Preoperative Recordo n 02-26-2019 Main OR Preoperative Record Holding Area Document Type FTPM Summary Primary Physician: Chauncey Alicea MD Finalized Date/Time: 02/26/19 07:44:06 Pt. Name: SEVERINO GREER Trang Yu./Sex: 1970 Female Med Rec #: [id number] Physician: Chauncey Alicea MD Financial #: [id number] Pt. Type: P Room/Bed: / Admit/Disch: 02/26/19 [...] By: Malorie Tolbert RN 02/26/19 07:44 Normal [facility] Operative Reporton 9 Operative Report Patient: KARISSA [...] with post-procedure instructions. No apparent complications. Normal [facility] Comment on above: Result Comment: Elec [...] Acute carpal tunnel syndrome / SNOMED CT [id number] / Confirmed, Active Problems (1) Acute carpal tunnel syndrome Histories Past Medical History: No active or resolved past medical history items have been selected or recorded. Family History: No family history items have been selected or recorded. Procedure history: Carpal tunnel release ([id number]). Comments: 01/15/2019 10:32 - Day Colleen WEAVER [...] Results review: No qualifying data available. Plan [place] [employer] Anesthesiologists (ASA) physical status classification: Class II. Anesthetic Preoperative Plan Anesthesia: Monitored anesthesia care. Anesthetic plan, risks, benefits, and alternatives discussed with the patient and/or family. Pt. and/or family present and agree to proceed as planned.. Discussed with pt the importance of abstaining from tobacco products, and offered counseling if pt desires.. Normal [facility] Comment on above: Result Comment: Elec tronically Signed By: Ellis Falk JR, DO.aston\Date and Time Signed: 02/26/19 08:34 EDT Coding Summary.on 02-13-2019 Coding Summary. CODING DATE: 019 FINAL [facility] STATUS: Home (Routine DC) PAYOR: [employer] ADMIT DX: REASON FOR VISIT DX: M54.2 Cervicalgia M79.603 Pain in arm, unspecified FINAL DX: PRINCIPAL: M54.12 Radiculopathy, cervical region SECONDARY: M50.20 Other cervical disc displacement, unspecified cervical region Z79.899 Other half-way (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 However, the narrative phrase printed from the coding software may appear abbreviated, or result in slightly different terminology. Coded By: Denise Garcia CphT Date Saved: 02/13/2019 07:11 am [facility] Consultation Noteon 02-12-20 Consultation Note HOSPITAL REGULATIONS : ALL Positive Important Negative Findings Shall Be Recorded. Date of 02/05/2019 Consultation: Attending Traice Mars M.D. Physician: Consulting Chauncey Alicea M.D. [...] her pain as well. Treatments have included health care legal assistant with Dr. Mars with minimal relief, and [...] not responded to appropriate conservative care including health care legal assistant and regular use of non-steroidal anti-inflammatory medications. [...] meanwhile. Chauncey Alicea M.D. aek Dictated: 02/05/2019 #[id number] Typed: 02/08/2019 #[id number] cc: Chauncey Alicea M.D. Tracie Mars M.D. Doyle Bustos MD [facility] Comment on above: Result Comment: Elec [...] female left-hand dominant. 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 [...] surgical options. MD marika Kendall Dictated: 01/15/2019 #[id number] Typed: 01/17/2019 #[id number] cc: Tracie Mars M.D. Doyle Bustos MD [facility] Comment on above: Result Comment: Elec tronically Signed By: Akash QUINTERO, Doyle Bashir\.br\Date and Time Signed: 01/25/19 16:46 EDT Coding Summary.on 01-18-2019 Coding Summary. CODING DATE: 019 [facility] STATUS: Home (Routine DC) PAYOR: [employer] ADMIT DX: REASON FOR VISIT DX: M54.2 [...] Garcia CphT Date Saved: 01/18/2019 09:40 am [facility] Vital Signs Date Time Vital Sign Value Performing Clinician Facility 01-18-2023 10:10-0400 Body height 167.64 cm Lili Eaton Other [facility] Other 01-18-2023 10:10-0400 Body mass index (BMI) [Ratio] 26.31 kg/m2 Lili Eaton Other [facility] 01-18-2023 10:10-0400 Body weight 73.94 kg Lili Eaton [facility] 01-18-2023 10:10-0400 Diastolic blood pressure 90 mm[Hg] Lili Eaton [facility] 01-18-2023 10:10-0400 Respiratory rate 18 /min Lili Eaton [facility] 01-18-2023 10:10-0400 SaO2% (BldA) [Mass fraction] 100 % Lili Eaton [facility] 01-18-2023 10:10-0400 Systolic blood pressure 143 mm[Hg] Lili E[facility] Other [facility] Other Encounters Encounter Date Encounter Type Care Provider Facility Start: 01-18-2023 End: 01-18-2023 ambulatory Lili Eaton Other [facility] Start: 01-18-2023 Office outpatient vi sit 15 minutes [facility] Start: 02-03-2022 End: 02-04-[address] TRACIE MARS Facility:[facility] Procedures Date Procedure Procedure Detail Performing Clinician Start: 03-19-2019 Anesthesia consultation Start: 03-18-2019 Anesthesia consultation Payers Date Payer Category Payer Unknown [id number] 1961 Unknown [id number] [facility] [id number] Social History Date Type Detail Facility Sex Assigned At [facility] Other Evaluation note 01-18-2023 Note Date & [...] Pt understood and agreed to tx plan. [facility] Other Summary Purpose Family History No Family [...] Acute carpal tunnel syndrome / SNOMED CT 02069833 / Confirmed Physical Examination Intake and Output Pt. denies significant n/v, and is tolerating p.o. Vital Signs (last 24 hrs) Last Charted Temp Oral 36.5 DegC (FEB 26 08:27) (more content not included)... Additional Source Comments INFORMATION SOURCE (unrecogn ized section and content) DATE CREATED AUTHOR 04/10/2019 [facility] DATE CREATED AUTHOR AUTHOR'S ORGANIZ ATION 02/04/2022 [facility] REASON FOR VISIT (unrecogniz ed section [...] BE BASED ON THE PRIMARY CLINICAL RECORDS. [facility]. provides no warranty or guarantee of the accuracy or completeness of information in this document.
== END 2024-07-15 10:00 | disposition home or self-care (01) ==
LOC: EC 10:00
PROVIDERS: PCP Family Medicine; Visit Provider Physician Assistant
DX: M54.2 Cervicalgia (principal); M43.22 Fusion of spine, cervical region
CPT/HCPCS: 72040

== ENCOUNTER 2024-08-23 09:07 | Outpatient (OUT) | payer BC, SELFPAY ==
--- NOTE | 2024-08-23 | XR_ITS ---
[place] [id number] Patient Name: SEVERINO GREER MRN: [id number] date: 1970 Sex: F Assigned Patient Location: Current Patient Location: Accession/Order Number: [id number] Exam Date: 08/23/2024 10:06 Report Date: 08/23/2024 10:07 At the request of: MICK BOYD MD Procedure: XR cervical spine 2-3V CERVICAL SPINE 2 views: CLINICAL HISTORY: Follow-up fusion hardware COMPARISON: Cervical spine series 07/15/2024 FINDINGS: Anterior fusion hardware C5-C7 without hardware complication. Vertebral body heights appear maintained. Facet joint degenerative changes. No prevertebral soft tissue swelling. XR/XR cervical spine 2-3V IMPRESSION: NO HARDWARE COMPLICATION. Impression dictated by: Kt Obrien Jr., D.O.08/23/2024 10:07 AM Dictation Location: [place] [address] Electronically authenticated by: [id number] Date: 08/23/2024 10:07
--- OUTSIDE RECORDS SUMMARY | 2024-08-23 09:27 | XMS_ITS | CCD ---
Author Organization [facility] Care Team Providers Care Director Process Improvement Name Role Phone DR TRACIE MARS Attending [...] INSULINon 02-04-2022 Insulin 22.5 uIU/mL Normal 2.6-24.9 [facility] Comment on above: Performed By: #### I NSULIN #### [facility] [address] [place] [address] Dr. Tessa Jackson T4, T3U, FTI LABCORPon 02-04 Free Thyroxine Index 1.5 Normal 1.2-4.9 [facility] Comment on above: Performed By: #### T HYLC #### [facility] [address] [place] [address] Dr. Tessa Jackson T3 Uptake 27 % Normal 24-39 [facility] Comment on above: Performed By: #### T HYLC #### [facility] [address] [place] [address] Dr. Tessa Jackson T4 [Mass/Vol] 5.7 ug/dL Normal 4.5-12.0 [facility] Comment on above: Performed By: #### T HYLC #### [facility] [address] [place] [address] Dr. Tessa Jackson CBC AUTO DIFFon 02-03-2022 BASO # 0.0 103/ul Normal 0.0-0.1 [facility] Comment on above: Performed By: #### C BC #### [facility] [address] [place] [address] Dr. Tessa Jackson Basophils/100 WBC (Bld) 0.1 % Critically low 0.2-2.0 [facility] Comment on above: Performed By: #### C BC #### [facility] [address] [place] [address] Dr. Tessa Jackson EO # 0.0 103/ul Normal 0.0-0.7 [facility] Comment on above: Performed By: #### C BC #### [facility] [address] [place] [address] Dr. Tessa Jackson Eosinophils/100 WBC (Bld) 0.0 % Critically low 0.9-7.0 [facility] Comment on above: Performed By: #### C BC #### [facility] [address] [place] [address] Dr. Tessa Jackson Erythrocyte distribution width (RBC) [Ratio] 13.1 % Normal 11.0-15.0 [facility] Comment on above: Performed By: #### C BC #### [facility] [address] [place] [address] Dr. Tessa Jackson Hematocrit (Bld) [Volume fraction] 40.7 % Normal 36.0-48.0 [facility] Comment on above: Performed By: #### C BC #### [facility] [address] [place] [address] Dr. Tessa Jackson Hemoglobin (Bld) [Mass/Vol] 13.5 g/dL Normal 12.0-16.0 [facility] Comment on above: Performed By: #### C BC #### [facility] [address] [place] [address] Dr. Tessa Jackson IG # 0.03 10e3/ul Normal 0.00-0.03 [facility] Comment on above: Performed By: #### C BC #### [facility] [address] [place] [address] Dr. Tessa Jackson IG % 0.4 % Normal 0.0-0.5 [facility] Comment on above: Performed By: #### C BC #### [facility] [address] [place] [address] Dr. Tessa Jackson LYMPH # 1.0 103/ul Critically low 1.2-3.8 [facility] Comment on above: Performed By: #### C BC #### [facility] [address] [place] [address] Dr. Tessa Jackson Lymphocytes/100 WBC (Bld) 14.4 % Critically low 20.5-60.0 [facility] Comment on above: Performed By: #### C BC #### [facility] [address] [place] [address] Dr. Tessa Jackson MANUAL DIFF REQ NO Normal [facility] Comment on above: Performed By: #### C BC #### [facility] [address] [place] [address] Dr. Tessa Jackson MCH (RBC) [Entitic mass] 30.8 pg Normal 26.7-34.0 [facility] Comment on above: Performed By: #### C BC #### [facility] [address] [place] [address] Dr. Tessa Jackson MCHC (RBC) [Mass/Vol] 33.2 g/dL Normal 29.9-35.2 [facility] Comment on above: Performed By: #### C BC #### [facility] [address] [place] [address] Dr. Tessa Jackson MCV (RBC) [Entitic vol] 92.7 fL Normal 81.0-99.0 [facility] Comment on above: Performed By: #### C BC #### [facility] [address] [place] [address] Dr. Tessa Jackson MONO # 0.4 103/ul Normal 0.3-0.8 [facility] Comment on above: Performed By: #### C BC #### [facility] [address] [place] [address] Dr. Tessa Jackson Monocytes/100 WBC (Bld) 5.6 % Normal 1.7-12.0 [facility] Comment on above: Performed By: #### C BC #### [facility] [address] [place] [address] Dr. Tessa Jackson NEUT # 5.6 103/ul Normal 1.4-6.5 [facility] Comment on above: Performed By: #### C BC #### [facility] [address] [place] [address] Dr. Tessa Jackson Neutrophils/100 WBC (Bld) 79.5 % Critically high 43.0-75.0 [facility] Comment on above: Performed By: #### C BC #### [facility] [address] [place] [address] Dr. Tessa Jackson Platelet mean volume (Bld) [Entitic vol] 9.6 fL Normal 9.5-13.5 [facility] Comment on above: Performed By: #### C BC #### [facility] [address] [place] [address] Dr. Tessa Jackson PLT 298 103/ul Normal 150-450 [facility] Comment on above: Performed By: #### C BC #### [facility] [address] [place] [address] Dr. Tessa Jackson RBC 4.39 106/ul Normal 4.20-5.40 [facility] Comment on above: Performed By: #### C BC #### [facility] [address] [place] [address] Dr. Tessa Jackson WBC 7.1 103/ul Normal 4.0-11.0 [facility] Comment on above: Performed By: #### C BC #### [facility] [address] [place] [address] Dr. Tessa Jackson CRPon 02-03-2022 CRP [Mass/Vol] mg/L Normal <=1.0 [facility] Comment on above: Performed By: #### C MP, CRP, LIPID, TSH #### [facility] [address] [place] [address] Dr. Tessa Jackson GLYCOHEMOGLOBIN A1Con 2021 ADA RECOMMENDATION SEE BELOW Normal [facility] Comment on above: Result Comment: ADA RECOMMENDED LIMIT 4.0 - 6.0 ADA THERAPEUTIC TARGET < 7.0 ACTION SUGGESTED > 7.0 Performed By: #### A 1C #### [facility] [address] [place] [address] Dr. Tessa Jackson Glucose [Mass/Vol] 126 mg/dL Normal [facility] Comment on above: Performed By: #### A 1C #### [facility] [address] [address] [address] Tessa Jackson HbA1c (Bld) [Mass fraction] 6.0 % Normal 4.5-6.2 [facility] Comment on above: Performed By: #### A 1C #### [facility] [address] [address] [address] Tessa Jackson IRONon 02-03-2022 Iron [Mass/Vol] 92.0 ug/dL Normal 50.0-170.0 [facility] Comment on above: Performed By: #### I KATE #### [facility] [address] [address] [address] Tessa Jackson LIPID PROFILEon 02-03-2022 CHOL-HDL RATIO NORM SEE BELOW Normal [facility] Comment on above: Result Comment: 3.3 - 4.4 LOW RISK 4.4 - 7.1 AVERAGE RISK 7.1 - 11.0 MODERATE RISK >11.0 HIGH RISK Performed By: #### C MP, CRP, LIPID, TSH #### [facility] [address] [address] [address] Tessa Jackson Cholesterol [Mass/Vol] 385 mg/dL Critically high <=200 [facility] Comment on above: Performed By: #### C MP, CRP, LIPID, TSH #### [facility] [address] [address] [address] Tessa Jackson Cholesterol in HDL [Mass/Vol] 136 mg/dL Critically high 40-60 [facility] Comment on above: Performed By: #### C MP, CRP, LIPID, TSH #### [facility] [address] [address] [address] Tessa Jackson Cholesterol in LDL [Mass/Vol] 226.6 mg/dL Normal [facility] Comment on above: Performed By: #### C MP, CRP, LIPID, TSH #### [facility] [address] [address] [address] Tessa Jackson Cholesterol.total/Ch olesterol in HDL [Mass ratio] 2.8 {ratio} Normal [facility] Comment on above: Performed By: #### C MP, CRP, LIPID, TSH #### [facility] [address] [address] [address] Tessa Jackson HDL NORMAL > or = 60 mg/dl - LO W CARDIOVASCULAR RISK <40 mg/dl - HIGH CARDIOVASCULAR RISK Normal [facility] Comment on above: Performed By: #### C MP, CRP, LIPID, TSH #### [facility] [address] [address] [address] Tessa Jackson LDL CALC NORMAL SEE BELOW Normal [facility] Comment on above: Result Comment: <100 mg/dl OPTIMAL 100 - 129 mg/dl NEAR OR ABOVE OPTIMAL 130 - 159 mg/dl BORDERLINE HIGH 160 - 189 mg/dl HIGH >190 mg/dl VERY HIGH Performed By: #### C MP, CRP, LIPID, TSH #### [facility] [address] [address] [address] Tessa Jackson Triglyceride [Mass/Vol] 112 mg/dL Normal <=150 [facility] Comment on above: Performed By: #### C MP, CRP, LIPID, TSH #### [facility] [address] [address] [address] Tessa Jackson VLDL CALC 22.4 mg/dL Normal [facility] Comment on above: Performed By: #### C MP, CRP, LIPID, TSH #### [facility] [address] [address] [address] Tessa Jackson PROF 14(COMP METB)on 022 Albumin [Mass/Vol] 4.0 g/dL Normal 3.4-5.0 [facility] Comment on above: Performed By: #### C MP, CRP, LIPID, TSH #### [facility] [address] [address] [address] Tessa Jackson Albumin/Globulin [Mass ratio] 1.0 {ratio} Normal [facility] Comment on above: Performed By: #### C MP, CRP, LIPID, TSH #### [facility] [address] [place] [address] Dr. Tessa Jackson ALP [Catalytic activity/Vol] 139 U/L Critically high 46-116 [facility] Comment on above: Performed By: #### C MP, CRP, LIPID, TSH #### [facility] [address] [address] [address] Tessa Jackson ALT [Catalytic activity/Vol] 86 U/L Critically high 14-59 [facility] Comment on above: Performed By: #### C MP, CRP, LIPID, TSH #### [facility] [address] [address] [address] Tessa Jackson Anion gap [Moles/Vol] 14.8 mmol/L Normal [facility] Comment on above: Performed By: #### C MP, CRP, LIPID, TSH #### [facility] [address] [address] [address] Tessa Jackson AST [Catalytic activity/Vol] 23 U/L Normal 15-37 [facility] Comment on above: Performed By: #### C MP, CRP, LIPID, TSH #### [facility] [address] [place] [address] Dr. Tessa Jackson Bilirubin [Mass/Vol] 0.4 mg/dL Normal 0.2-1.0 [facility] Comment on above: Performed By: #### C MP, CRP, LIPID, TSH #### [facility] [address] [address] [address] Tessa Jackson Calcium [Mass/Vol] 10.0 mg/dL Normal 8.5-10.1 [facility] Comment on above: Performed By: #### C MP, CRP, LIPID, TSH #### [facility] [address] [address] [address] Tessa Jackson Chloride [Moles/Vol] 100 mmol/L Normal 98-107 [facility] Comment on above: Performed By: #### C MP, CRP, LIPID, TSH #### [facility] [address] [address] [address] Tessa Jackson CO2 [Moles/Vol] 28.0 mmol/L Normal 21.0-32.0 [facility] Comment on above: Performed By: #### C MP, CRP, LIPID, TSH #### [facility] [address] [address] [address] Tessa Jackson Creatinine [Mass/Vol] 0.95 mg/dL Normal 0.55-1.02 [facility] Comment on above: Performed By: #### C MP, CRP, LIPID, TSH #### [facility] [address] [place] [address] Dr. Tessa Jackson EGFR-AF BELIZEAN >60 Normal >=60 [facility] Comment on above: Performed By: #### C MP, CRP, LIPID, TSH #### [facility] [address] [place] [address] Dr. Tessa Jackson EGFR-NON AF BELIZEAN >60 Normal >=60 [facility] Comment on above: Performed By: #### C MP, CRP, LIPID, TSH #### [facility] [address] [place] [address] Dr. Tessa Jackson Globulin (S) [Mass/Vol] 3.9 g/dL Normal [facility] Comment on above: Performed By: #### C MP, CRP, LIPID, TSH #### [facility] [address] [place] [address] Dr. Tessa Jackson Glucose [Mass/Vol] 127 mg/dL Critically high 74-106 [facility] Comment on above: Performed By: #### C MP, CRP, LIPID, TSH #### [facility] [address] [place] [address] Dr. Tessa Jackson Potassium [Moles/Vol] 4.8 mmol/L Normal 3.5-5.1 [facility] Comment on above: Performed By: #### C MP, CRP, LIPID, TSH #### [facility] [address] [place] [address] Dr. Tessa Jackson Protein [Mass/Vol] 7.9 g/dL Normal 6.4-8.[address] [facility] Comment on above: Performed By: #### C MP, CRP, LIPID, TSH #### [facility] [address] [place] [address] Dr. Tessa Jackson Sodium [Moles/Vol] 138 mmol/L Normal 136-145 [facility] Comment on above: Performed By: #### C MP, CRP, LIPID, TSH #### [facility] [address] [address] [address] Tessa Jackson Urea nitrogen [Mass/Vol] 14.0 mg/dL Normal 7.0-18.0 [facility] Comment on above: Performed By: #### C MP, CRP, LIPID, TSH #### [facility] [address] [address] [address] Tessa Jackson Urea nitrogen/Creatinine [Mass ratio] 14.7 mg/mg Normal [facility] Comment on above: Performed By: #### C MP, CRP, LIPID, TSH #### [facility] [address] [address] [address] [facility] mm/hr Normal <=30 [facility] Comment on above: Performed By: #### S EDR #### [facility] [address] [place] [address] Dr. Tessa Jackson TSHon 02-03-2022 TSH 0.639 uIU/mL Normal 0.358-3.740 [facility] Comment on above: Performed By: #### C MP, CRP, LIPID, TSH #### [facility] [address] [address] [address] Tessa Jackson Coding Summary.on 04-10-2019 Coding Summary. CODING DATE: 019 [facility] STATUS: Home (Routine DC) PAYOR: Medical Odem ADMIT DX: REASON FOR VISIT DX: M54.2 [...] CphT Date Saved: 04/10/2019 07:12 am Normal [facility] Consultation Noteon 04-10-20 19 Consultation Note [...] concerns. Chauncey Alicea M.D. gls Dictated: 04/02/2019 #[id number] Typed: 04/08/2019 #[id number] cc: Jaden Fritz M.D. [facility] Comment on above: Result Comment: Elec tronically Signed By: Deanne QUINTERO, Chauncey Moncada\.br\Date and Time Signed: 04/10/19 09:50 EST Coding Summary.on 03-20-2019 Coding Summary. CODING DATE: 019 FINAL [facility] STATUS: Home (Routine DC) PAYOR: Medical Odem ADMIT DX: REASON FOR VISIT DX: M50.10 [...] Verduzco Date Saved: 03/20/2019 03:38 pm Normal [facility] Coding Summary.on 03-19-2019 Coding Summary. CODING DATE: 019 FINAL [facility] STATUS: Home (Routine DC) PAYOR: Medical Odem APC DESCRIPTION 5442 Level 2 Nerve Injections [...] [place] Date Saved: 03/19/2019 08:43 am Normal [facility] Consultation Noteon 03-19-20 Consultation Note HOSPITAL [...] response. Chauncey Alicea M.D. gls Dictated: 03/11/2019 #[id number] Typed: 03/13/2019 #[id number] cc: Jaden Fritz M.D. [facility] Comment on above: Result Comment: Elec tronically Signed By: Chauncey Alicea MD\.br\Date and Time Signed: 03/19/19 08:22 EDT Main OR Intraoperative Recor don 03-18-2019 Main OR Intraoperative Record IntraOp Document Type [facility] Summary Primary Physician: Chauncey Alicea MD Finalized Date/Time: 03/18/19 08:19:23 Pt. Name: PERCY SEVERINO Trang MurilloB./Sex: 1970 Female Med Rec #: [id number] Physician: Chauncey Alicea MD Financial #: [id number] Pt. Type: P Room/Bed: / Admit/Disch: 03/18/19 [...] Role Performed Anesthesiologist of Surgeon - Primary Manager Transplant - Primary Record Time In 03/18/19 08:12:00 [...] Performed Scrub - Primary Scrub - Other Talent Development Coordinator Time In 03/18/19 08:12:00 03/18/19 08:12:00 03/18/19 [...] and tissue Entry 1 Skin Integrity Intact, [place], Warm, and Skin Abnormality No Dry Outcomes [...] Signed By: Zhang Carrion RN 03/18/19 08:19 [facility] Main OR Preoperative Recordo n 03-18-2019 Main OR Preoperative Record Holding Area Document Type FT Summary Primary Physician: Chauncey Alicea MD Finalized Date/Time: 03/18/19 07:50:56 Pt. Name: SEVERINO GREER /Sex: 1970 Female Med Rec #: [id number] Physician: Chauncey Alicea MD Financial #: [id number] Pt. Type: P Room/Bed: / Admit/Disch: 03/18/19 [...] By: Liseth Delacruz RN 03/18/19 07:50 Normal [facility] Operative Reporton 9 Operative Report Patient: [...] 113 mmHg SpO2 99 % . Normal [facility] Comment on above: Result Comment: Elec tronically Signed By: Deanne QUINTERO, Chauncey Moncada\.aston\Date and Time Signed: 03/18/19 08:20 EDT Coding Summary.on 02-28-2019 Coding Summary. CODING DATE: 019 FINAL [facility] STATUS: Home (Routine DC) PAYOR: Medical Odem APC DESCRIPTION 5442 Level 2 Nerve Injections [...] Verduzco Date Saved: 02/28/2019 10:26 am Normal [facility] Main OR Intraoperative Recor don 02-26-2019 Main OR Intraoperative Record IntraOp Document Type FTPM Summary Primary Physician: Chauncey Alicea MD Finalized Date/Time: 02/26/19 08:23:08 Pt. Name: SEVERINO GREER Trang MurilloB./Sex: 1970 Female Med Rec #: [id number] Physician: Chauncey Alicea MD Financial #: [id number] Pt. Type: P Room/Bed: / Admit/Disch: 02/26/19 [...] Role Performed Surgeon - Primary Anesthesiologist of Manager Transplant - Primary Record Time In 02/26/19 08:17:00 [...] Performed Scrub - Other Scrub - Primary Talent Development Coordinator Time In 02/26/19 08:17:00 02/26/19 08:17:00 02/26/19 [...] and tissue Entry 1 Skin Integrity Intact, [place], Warm, and Skin Abnormality No Dry Outcomes [...] By: Trinidad Vega RN 02/26/19 08:23 Normal [facility] Main OR Preoperative Recordo n 02-26-2019 Main OR Preoperative Record Holding Area Document Type FTPM Summary Primary Physician: Chauncey Alicea MD Finalized Date/Time: 02/26/19 07:44:06 Pt. Name: SEVERINO GREER Trang Yu./Sex: 1970 Female Med Rec #: [id number] Physician: Chauncey Alicea MD Financial #: [id number] Pt. Type: P Room/Bed: / Admit/Disch: 02/26/19 [...] By: Malorie Tolbert RN 02/26/19 07:44 Normal [facility] Operative Reporton 9 Operative Report Patient: [...] with post-procedure instructions. No apparent complications. Normal [facility] Comment on above: Result Comment: Elec [...] Acute carpal tunnel syndrome / SNOMED CT 48915656 / Confirmed, Active Problems (1) Acute carpal tunnel syndrome Histories Past Medical History: No active or resolved past medical history items have been selected or recorded. Family History: No family history items have been selected or recorded. Procedure history: Carpal tunnel release ([id number]). Comments: 01/15/2019 10:32 - Day Colleen WEAVER [...] Results review: No qualifying data available. Plan [place] [employer]esthesi[employer] (ASA) physical status classification: Class II. Anesthetic Preoperative Plan Anesthesia: Monitored anesthesia care. Anesthetic plan, risks, benefits, and alternatives discussed with the patient and/or family. Pt. and/or family present and agree to proceed as planned.. Discussed with pt the importance of abstaining from tobacco products, and offered counseling if pt desires.. Normal [facility] Comment on above: Result Comment: Elec tronically Signed By: Ellis Falk JR, DO.aston\Date and Time Signed: 02/26/19 08:34 EDT Coding Summary.on 02-13-2019 Coding Summary. CODING DATE: 019 FINAL [facility] STATUS: Home (Routine DC) PAYOR: Medical Odem ADMIT DX: REASON FOR VISIT DX: M54.2 Cervicalgia M79.603 Pain in arm, unspecified FINAL DX: PRINCIPAL: M54.12 Radiculopathy, cervical region SECONDARY: M50.20 Other cervical disc displacement, unspecified cervical region Z79.899 Other basin tender (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 However, the narrative phrase printed from the coding software may appear abbreviated, or result in slightly different terminology. Coded By: Denise Garcia CphT Date Saved: 02/13/2019 07:11 am [facility] Consultation Noteon 02-12-20 Consultation Note HOSPITAL [...] her pain as well. Treatments have included manager intensive care with Dr. Mars with minimal relief, [...] not responded to appropriate conservative care including manager intensive care and regular use of non-steroidal anti-inflammatory [...] meanwhile. Chauncey Alicea M.D. aek Dictated: 02/05/2019 #[id number] Typed: 02/08/2019 #[id number] cc: Chauncey Alicea M.D. Tracie Mars M.D. Doyle Bustos MD [facility] Comment on above: Result Comment: Elec [...] female left-hand dominant. 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 [...] surgical options. MD marika Kendall Dictated: 01/15/2019 #[id number] Typed: 01/17/2019 #[id number] cc: Tracie Mars M.D. Doyle Bustos MD [facility] Comment on above: Result Comment: Elec tronically Signed By: Akash QUINTERO, Doyle Bashir\.br\Date and Time Signed: 01/25/19 16:46 EDT Coding Summary.on 01-18-2019 Coding Summary. CODING DATE: 019 [facility] STATUS: Home (Routine DC) PAYOR: Medical Odem ADMIT DX: REASON FOR VISIT DX: M54.2 [...] Garcia CphT Date Saved: 01/18/2019 09:40 am [facility] Vital Signs Date Time Vital Sign Value Performing Clinician Facility 01-18-2023 10:10-0400 Body height 167.64 cm Lili Eaton Other [facility] Other 01-18-2023 10:10-0400 Body mass index (BMI) [Ratio] 26.31 kg/m2 Lili Eaton Other [facility] Other 01-18-2023 10:10-0400 Body weight 73.94 kg Lili Eaton Other [facility] Other 01-18-2023 10:10-0400 Diastolic blood pressure 90 mm[Hg] Lili Eaton Other [facility] Other 01-18-2023 10:10-0400 Respiratory rate 18 /min Lili Eaton Other [facility] Other 01-18-2023 10:10-0400 SaO2% (BldA) [Mass fraction] 100 % Lili Eaton Other [facility] Other 01-18-2023 10:10-0400 Systolic blood pressure 143 mm[Hg] Lili Eaton Other [facility] Other Encounters Encounter Date Encounter Type Care Provider Facility Start: 01-18-2023 End: 01-18-2023 ambulatory Lili Eaton Other [facility] Other Start: 01-18-2023 Office outpatient vi sit 15 minutes [facility] Start: 02-03-2022 End: 02-04-[address] TRACIE MARS Facility:[facility] Procedures Date Procedure Procedure Detail Performing Clinician Start: 03-19-2019 Anesthesia consultation Start: 03-18-2019 Anesthesia consultation Payers Date Payer Category Payer Unknown [id number] 1961 Unknown [id number] [facility] [id number] Social History Date Type Detail Facility Sex Assigned At [facility] Other Evaluation note 01-18-2023 Note Date & [...] Pt understood and agreed to tx plan. [facility] Other Summary Purpose Family History No Family [...] Acute carpal tunnel syndrome / SNOMED CT [id number] / Confirmed Physical Examination Intake and Output Pt. denies significant n/v, and is tolerating p.o. Vital Signs (last 24 hrs) Last Charted Temp Oral 36.5 DegC (FEB 26 08:27) (more content not included)... Additional Source Comments INFORMATION SOURCE (unrecogn ized section and content) DATE CREATED AUTHOR 04/10/2019 [facility] DATE CREATED AUTHOR AUTHOR'S ORGANIZ ATION [facility]2022 [facility] V[facility] (unrecogniz ed [...] BE BASED ON THE PRIMARY CLINICAL RECORDS. [employer] [facility]. provides no warranty or guarantee of the accuracy or completeness of information in this document.
== END 2024-08-23 09:08 | disposition home or self-care (01) ==
LOC: EC 09:07
PROVIDERS: PCP Family Medicine; Visit Provider Orthopaedic Surgery Orthopaedic Surgery of the Spine
DX: Z47.89 Encounter for other orthopedic aftercare (principal)
CPT/HCPCS: 72040

== ENCOUNTER 2025-04-17 14:37 | Outpatient (OUT) | payer BC, SELFPAY ==
--- OUTSIDE RECORDS SUMMARY | 2024-07-12 04:50 | XMS_ITS ---
Author Organization [facility] Address [address] [place] [address] Care Team Providers Care Diffusion Operator Name Role Phone Octavio Mars Primary Care Provider Michael Santiago Unavailable [phone] REASON FOR VISIT C5-7 ACDF, 06/03/24, IOS Encounters Encounter Location Date Provider Diagnosis [facility] Office [address] [place] [address] [address] [place] [address] 07/12/2024 Michael Sprague Aftercare following surgery of the musculoskeletal system Z47.89 Assessments Encounter Date Diagnosis (ICD Code) Assessment Notes Treatment Notes Treatment Clinical Notes Section Notes 07/12/2024 Aftercare following surgery of the musculoskeletal system (ICD-10 - Z47.89) Plan Of Treatment Pending Test Test Name Order Date Cervical spine 2 v - 41384 07/12/2024 Progress Notes * SEVERINO GREER MDOB:1970 (54 yo F)Acc No.[id number]:07/12/2024 Progress Notes Patient: Yelitza SEVERINO ZARATE :?Michale Mancuso MD, PhDDOB:1970 ???Age:53 Y???Sex:FemaleDate:07/12/2024Phone:[phone]:KIRK RUCKER [id number]:Octavio Mars Subjective: * Chief Complaints: * 1 . C5-7 ACDF, 06/03/24, IOS. * Medical History: Objective: * Vitals: Assessment: * Assessment: 1.?Aftercare following surgery of the musculoskeletal system - Z47.89 (Primary)?? Plan: * Treatment: ?Imaging: Cervical spine 2 v - 98786 Forms: * Images: * Electronic signature of Michael Sprague MD, PHD on 04/17/2025 at 02:41 PM EST Sign off status: Pending * Provider: Diana Mancuso MD, PhD Date: 0 07/12/2024 Generated for Printing/Faxing/eTransmitting on:?04/17/2025 02:41 PM EST
--- OUTSIDE RECORDS SUMMARY | 2024-07-26 05:40 | XMS_ITS ---
Author Organization [facility] Address [address] [place] [address] Care Team Providers Care Airline Reservationist Name Role Phone Octavio Mars Primary Care Provider Michael Santiago [phone] REASON FOR VISIT C5-7 ACDF, 06/03/24, IOS Encounters Encounter Location Date Provider Diagnosis [facility] [facility] [address] [place] [address] [place] [address] 07/26/2024 Michael Sprague Plan Of Treatment No Information Progress Notes * SEVERINO GREER MDOB:1970 (54 yo F)Acc No.[id number]:07/26/2024 Progress Notes Patient: Yelitza MCLEANSEVERINO Mabry :?Michael Mancuso MD, PhDDOB:1970 ???Age:53 Y???Sex:FemaleDate:07/26/2024Phone:[phone]:[address] [place], [place] [address], [place]-[id number]:Octavio Ellsworthmisty Subjective: * Chief Complaints: * 1 . C5-7 ACDF, 06/03/24, IOS. * Medical History: Objective: * Vitals: Assessment: Plan: * Treatment: Forms: * Images: * Electronic signature of Michael Sprague MD, PHD on 04/17/2025 at 02:42 PM EST Sign off status: Pending * Provider: Diana Mancuso MD, PhD Date: 0 07/26/2024 Generated for Printing/Faxing/eTransmitting on:?04/17/2025 02:42 PM EST
--- OUTSIDE RECORDS SUMMARY | 2024-11-22 03:50 | XMS_ITS ---
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 Name Role Phone Octavio Mars Primary Care Provider Michael Santiago Unavailable [phone] REASON FOR VISIT CERVICAL RECHECK Encounters Encounter Location Date Provider Diagnosis [facility] [facility] [address] [facility] [place] [address] [place] [address] 11/22/2024 Michael Sprague Plan Of Treatment No Information Progress Notes * SEVERINO GREER MDOB:1970 (54 yo F)Acc No.[id number]:11/22/2024 Progress Notes Patient: Yelitza SEVERINO ZARATE :?Michael Mancuso MD, PhDDOB:1970 ???Age:54 Y???Sex:FemaleDate:11/22/2024Phone:[phone]:[address] [facility]CO-[address]Jmk:Octavio Mars Subjective: * Chief Complaints: * 1 . CERVICAL RECHECK. * Medical History: Objective: * Vitals: Assessment: Plan: * Treatment: Forms: * Images: * Electronic signature of Michael Sprague MD, PHD on 04/17/2025 at 02:42 PM EST Sign off status: Pending * Provider: Diana Mancuso MD, PhD Date: 0 11/22/2024 Generated for Printing/Faxing/eTransmitting on:?04/17/2025 02:42 PM EST
--- OUTSIDE RECORDS SUMMARY | 2025-04-15 03:30 | XMS_ITS ---
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 REPEAT IN 1 HOUR IF NEEDEDActive Social History Tobacco Use: Social History Observation Description Date Details (start date - stop date) Never Smoker NA - NA Tobacco Use/Smoking Question Answer Notes Patient is a nonsmoker AUDIT-C (Standard) Question Answer Notes Did you have a drink containing alcohol in the p ast year? Yes How often did you have a drink containing alcohol in the past year?Monthly or less (1 point)How many drinks did you have on a typical day when you were drinking in the past year?3 or 4 drinks (1 point)How often did you have six or more drinks on one occasion in the past year?4 or more times a week (4 points) Okbreh5DjvosyvapadwrxWbplapkg Vital Signs Weight 163.0 lbs 04/15/2025 Height 67 in 04/15/2025 Blood pressure systolic 122 mm Hg 04/15/20 25 Blood pressure diastolic 82 mm Hg 025 BMI 25.53 kg/m2 04/15/2025 Encounters Encounter Location Date Provider Diagnosis [facility] [address] [place] [address] 04/15/2025 Dusty Mars Gout M10.9 Assessments Encounter Date Diagnosis (ICD Code) Assessment Notes Treatment Notes Treatment Clinical Notes Section Notes 04/15/2025 Gout (ICD-10 - M10.9) may want to try uloric if has repeat flare taper prednsione if not better friada Plan Of Treatment Medication Medication Name Sig Start Date Stop Date Notes predniSONE 20 MG 3 tablets Orally Once a day; Duration : 5 days 04/15/2025 Treatment Notes Assessment Notes Gout may want to try uloric if has repeat flare taper prednsione if not better friada Medications Administered Medication Instructions Date of Administration Dosage Notes Dexamethasone, 4mg/mL mgKetorolac Uvnblqvgezqu19/11/029124 mg Progress Notes * Nathalie BACON MDOB:1970 (54 yo F)Acc No.[id number]:04/15/2025 Progress Note Patient: Yelitza ZARATE Nathalie Costello :?Octavio Mars ([facility]), MDDOB:1970???Age: 54 Y???Sex:FemaleDate:04/15/2025Phone:[phone]:[address] [facility] [place], [id number] In:08:18 AM ESTCheck Out:08:50 AM EST Subjective: * Chief Complaints: * L eft foot pain * HPI: ???General:? No injury - last 8 does has hx gout -? didnt seem to start like that. 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 Modified On:12/19/2022W/U Status:fpjbwbyqrX13.80Osteopenia Modified On:01/04/2023/U Status:lhkkldhqoE81.9Gout Modified On:02/10/2023/U Status:qwflqrekwZ89.671Foot pain, right Modified On:12/18/2023W/U Status:cbqfmehxpB44.21Hallux rigidus, right foot Modified On:12/27/2023W/U Status:nbxiswhynJ40.571Contracture, right ankle Modified On:12/27/2023W/U Status:skszukkfjE79.30Shoulder mass Modified On:02/22/2024W/U Status:thlxsbpkhZ59.90Cervical disc disease Modified On:03/14/2024W/U Status:confirmed * Medical History: * Surgical History: b ilateral carpal tunel appendix c6-c7 neck fusion may 2024 * Hospitalization/Major Diagno stic Procedure: s ee above * Family History: F ather: alive, prostate cancer, diagnosed with Cancer. M other: , LUNG CANCER, glaucoma, thyroid disease, diagnosed with Cancer. B rother(s): alive, prostate cancer, diagnosed with Cancer. S on(s): alive. D ángeler(s): alive. P aternal Grandmother: , diagnosed with Heart Disease. 1 brother(s) . 2 son(s) , 2 daughter(s) - healthy. . * Social History: ???Tobacco Use:?Tobacco Use/Smoking?Patient is a?nonsmoker ???Drug/Alcohol:?AUDIT-C (Standard)?Did you have a drink containing alcohol in the past year??Yes ?How often did you have a drink containing alcohol in the past year?? Monthly or less (1 point) ?How many drinks did you have on a typical daywhen you were drinking in the past year??3 or 4 drinks (1 point) ?How often did you have six or more drinks on one occasion in the past year??4 or more times a week (4 points) ?Points?6 ?Interpretation?Positive * Medications: T akingAllopurinol 300 MG Tablet 1 tablet Orally Once a day Colchicine 0.6 MG Tablet TAKE 1 TABLET BY MOUTH DAILY NEEDED FOR GOUT FOR 30 DAYS. REPEAT IN 1 HOUR IF NEEDED Taking Allopurinol 300 MG Tablet 1 tablet Orally Once a day Taking Colchicine 0.6 MG Tablet TAKE 1 TABLET BY MOUTH DAILY NEEDED FOR GOUT FOR 30 DAYS. REPEAT IN 1 HOUR IF NEEDED DiscontinuedFosamax(Alendronate Sodium) 70 MG Tablet 1 tablet 30 minutes before the first food, beverage or medicine of the day with plain water Orally once a week Meclizine HCl 25 MG Tablet 1 tablet as needed Orally QID Meloxicam 15 MG Tablet TAKE 1 TABLET BY MOUTH EVERY DAY [place] [facility] Syringes - Miscellaneous as directed predniSONE 20 MG Tablet 3 tablets Orally Once a day Medication List reviewed and reconciled with the patientDiscontinued Fosamax(Alendronate Sodium) 70 MG Tablet 1 tablet 30 minutes before the first food, beverage or medicine of the day with plain water Orally once a week Discontinued Meclizine HCl 25 MG Tablet 1 tablet as needed Orally QID Discontinued Meloxicam 15 MG Tablet TAKE 1 TABLET BY MOUTH EVERY DAY Discontinued [place] & Syringes - Miscellaneous as directed Discontinued predniSONE 20 MG Tablet 3 tablets Orally Once a day Medication List reviewed and reconciled with the patient * Allergies: N .K.D.A.no[Allergies Verified] Objective: * Vitals: W t:163.0lbs, Ht: 67 in, BP:122/82mm Hg, BMI:25.53Index, Ht-cm: 170.18 cm, Wt-k.94 kg. * Examination: ???Lower Extremities: ???Lef tforot iwht [facility]. Assessment: * Assessment: 1.?Gout - M10.9 (Primary)??? Plan: * Treatment: Start predniSONE Tablet, 20 MG, 3 tablets, Orally, Once a day, 5 days, 15 Tablet.?? Notes: may want to try uloric if has repeat flare taper prednsione if not better ?? * Therapeutic Injections: Dexamethasone, 4mg/mL : 12 mg (Route: Intramuscular) given by BECCA Rowley on right buttock (Gout)??? Ketorolac Tromethamine : 60 mg (Route: Intramuscular) given by BECCA Rowley on left buttock (Gout) * Procedure Codes: [id number] THERAP.INJ. OF MED. INTRAMUSCULAR OR [id number] Dexamethasone, 4mg/mL, Units: 3.00 J1885 TORADOL, PER 15 MG, Units: 4.00 , Modifiers: JZ * Preventive Medicine: ??Screenings/Counseling:?BMI ACTION PLAN?Above Normal BMI Follow-up?Dietary management education, guidance, and counseling * * Sign off status: CompletedVisit Status:?CHK (Check Out) true * Provider: Antwan Mars ([facility])MD Date: 1 06/15/2024 Generated for Printing/Faxing/eTransmitting on:?04/17/2025 02:42 PM EST History and Physical Notes * HPI (History of Present Illness) CategorySub-CategoryDetailNotesCategory NotesGeneral No injury - last 8 does has hx gout - didnt seem to start like that Examination CategorySub-CategoryDetailNotesCategory NotesLower ExtremitiesLef tforot iwzahira neal [place]
--- OUTSIDE RECORDS SUMMARY | 2025-04-17 14:41 | XMS_ITS | CCD ---
Author Organization [facility] Care Team Providers Care Home Lending Officer Name Role Phone DR TRACIE MARS Attending Unavailable DR TRACIE MARS Consulting Unavailable DR TRACIE MARS Primary Care Unavailable DR TRACIE MARS Admitting Unavailable Lili Eaton Unavailable Medications Current Medications MedicationDrug Class(es)DatesSig (Normalized)Sig (Original)alendronic acid 70 mg oral tablet (1 source)Bisphosphonatetake 1 tablet by mouth once dailyFosamax 70 MG 1 tablet 30 minutes before the first food, beverage or medicine of the day with plain water Orally ActivemethylPREDNISolone 4 mg oral tablet (1 source)CorticosteroidStart: 06-01-0051uownyaKFZUBZIpftsv 4 MG as directed Orally Jan, Active Completed/Discontinued Medications MedicationDrug Class(es)DatesSig (Normalized)Sig (Original)amoxicillin 875 mg / clavulanate 125 mg oral tablet (1 source)Penicillin-class AntibacterialStart: 85-54-6865nyil 1 tablet by mouth every twelve hoursAmoxicillin-Pot Clavulanate 875-125 MG 1 tablet Orally every 12 hrs for 10 day(s) Sep, Not-Takingfluticasone propionate 0.05 mg/actuat metered dose nasal spray (1 source)CorticosteroidStart: 54-62-6462ilrm 2 spray(s) nasal route once daily Fluticasone Propionate 50 MCG/ACT 2 sprays Nasally Once a day for 14 day(s) Sep, Not-TakingpredniSONE 20 mg oral tablet (1 source)Start: 56-28-0332cwwk 1 tablet by mouth every twelve hourspredniSONE 20 MG 1 tablet Orally bid for 5 day(s) Sep, Not-Taking Problems Problem ClassificationProblemDateDocumented DateEpisodic/ChronicConditions associated with dizziness or vertigo (4 sources)Other peripheral vertigo, unspecified ear; Translations: [OTHER PERIPHERAL VERTIGO UNS EAR]Onset: 11-22-7543JwqvybodNxvocnmypp and other anemia (1 source)Anemia, unspecified; Translations: [ANEMIA UNSPECIFIED]Onset: 69-62-7209IzfsmoviKvdgiuxz mellitus without complication (1 source)Other abnormal glucose; Translations: [OTHER ABNORMAL GLUCOSE]Onset: 35-02-7685WkphhkgaVutsc connective tissue disease (1 source)Pain in left footEpisodicSyncope (1 source)Syncope and collapse; Translations: [SYNCOPE AND COLLAPSE]Onset: 48-11-4657Tdjjczko Results Test NameValueInterpretationReference RangeFacilityINSULINon 52-75-8645Wrxwnbw 22.5 uIU/mLNormal2.6-24.9The [facility] CenterComment on above:Performed By: #### INSULIN #### [facility] [address] [place] [address] Dr. Tessa Jackson4, T3U, FTI LABCORPon 28-75-1133Vhcr Thyroxine Index1.5Normal 1.2-4.9The [facility] CenterComment on above:Performed By: #### THYLC #### [facility] [address] [place] [address] Dr. Tessa JacksonT3 Dxxxsy13 %Xvujcv82-40Ufv [facility] CenterComment on above: Performed By: #### THYLC #### [facility] [address] [place] [address] Dr. Tessa Chance [Mass/Vol]5.7 ug/dLNormal4.5-12.0The [facility] CenterComment on above:Performed By: #### THYLC #### [facility] [address] [place] [address] Dr. Tessa Woodall AUTO DIFFon 36-99-9729NWJM #0.0 103/ulNormal0.0-0.1The [facility] CenterComment on above:Performed By: #### CBC #### [facility] [address] [place] [address] Dr. Tessa JacksonBasophils/100 WBC (Bld)0.1 %Critically low0.2-2.0The [facility] Systemment on above:Performed By: #### CBC #### [facility] [address] [place] [address] Dr. Tessa Overton #0.0 103/ulNormal0.0-0.7The [facility] CenterComment on above: Performed By: #### CBC #### [facility] [address] [place] [address] Dr. Tessa Bairdosinophils/100 WBC (Bld)0.0 %Critically low0.9-7.0The [facility] Systemment on above:Performed By: #### CBC #### [facility] [address] [place] [address] Dr. Tessa Bairdrythrocyte distribution width (RBC) [Ratio]13.1 %Kzrrpk45.0-15.0 The [facility] CenterComment on above:Performed By: #### CBC #### [facility] [address] [place] [address] Dr. Tessa JacksonHematocrit (Bld) [Volume fraction]40.7 %Lcmwnv63.0-48.0The [facility] on above:Performed By: #### CBC #### [facility] [address] [place] [address] Dr. Tessa JacksonHemoglobin (Bld) [Mass/Vol]13.5 g/rAUcgvpu96.0-16.0The [facility] Systemment on above:Performed By: #### CBC #### [facility] [address] [place] [address] Dr. Tessa Gilliland #0.03 10e3/ulNormal0.00-0.03The [facility] CenterComment on above:Performed By: #### CBC #### [facility] [address] [place] [address] Dr. Tessa Gilliland %0.4 %Normal0.0-0.5The [facility] CenterComment on above: Performed By: #### CBC #### [facility] [address] [address] [address] Tessa Kent #1.0 103/ulCritically low1.2-3.8The [facility] Comment on above:Performed By: #### CBC #### [facility] [address] [address] [address] Tessa Rodriguezmphocytes/100 WBC (Bld)14.4 %Critically low20.5-60.0The [facility] CenterComment on above:Performed By: #### CBC #### [facility] [address] [address] [address] Tessa Bhandari DIFF REQNONormalThe [facility] CenterComment on above: Performed By: #### CBC #### [facility] [address] [place] [address] Dr. Tessa Waterman (RBC) [Entitic mass]30.8 waDyefql42.7-34.0The [facility] CenterComment on above:Performed By: #### CBC #### [facility] [address] [place] [address] Dr. Tessa Waterman (RBC) [Mass/Vol]33.2 g/rDEamtrl64.9-35.2The [facility] CenterComment on above:Performed By: #### CBC #### [facility] [address] [place] [address] Dr. Tessa Waterman (RBC) [Entitic vol]92.7 sSPtkyyx15.0-99.0The [facility] CenterComment on above:Performed By: #### CBC #### [facility] [address] [address] [address] Tessa Padilla #0.4 103/ulNormal0.3-0.8The [facility] CenterComment on above:Performed By: #### CBC #### [facility] [address] [place] [address] Dr. Tessa Gonzalezocytes/100 WBC (Bld)5.6 %Normal1.7-12.0[facility] Comment on above:Performed By: #### CBC #### [facility] [address] [address] [address] Tessa KhanUT #5.6 103/ulNormal1.4-6.5The [facility] CenterComment on above:Performed By: #### CBC #### [facility] [address] [address] [address] Tessa Khanutrophils/100 WBC (Bld)79.5 %Critically high43.0-75.0The [facility] CenterComment on above:Performed By: #### CBC #### [facility] [address] [place] [address] Dr. Tessa JacksonPlatelet mean volume (Bld) [Entitic vol]9.6 fLNormal9.5-13.5The [facility] on above:Performed By: #### CBC #### [facility] [address] [place] [address] Dr. Tessa JacksonPLT298 103/bkZjebot092-129Sox [facility] CenterComascension b[facility] on above: Performed By: #### CBC #### [facility] [address] [place] [address] Dr. Tessa JacksonRBC4.39 106/ulNormal4.20-5.40The [facility] on above:Performed By: #### CBC #### [facility] [address] [place] [address] Dr. Tessa JacksonWBC7.1 103/ulNormal4.0-11.0The [facility] on above: Performed By: #### CBC #### [facility] [address] [place] [address] Dr. Tessa JacksonCRYanick 14-75-7666GPM [Mass/Vol]mg/LNormal<=1.0The [facility] on above:Performed By: #### CMP, CRP, LIPID, TSH #### [facility] [address] [place] [address] Dr. Tessa JacksonGLYCOHEMOGLOBIN A1Con 43-79-7004WGI RECOMMENDATIONSEE BELOWNormal The [facility] CenterComascension [facility] on above:Result Comment: ADA RECOMMENDED LIMIT 4.0 - 6.0 ADA THERAPEUTIC TARGET < 7.0 ACTION SUGGESTED > 7.0Performed By: #### A1C #### [facility] [address] [place] [address] Dr. Tessa JacksonGlucose [Mass/Vol]126 mg/dLWood County HospitalComascension [facility]org[facility] on above:Performed By: #### A1C #### [facility] [address] [place] [address] Dr. Tessa JacksonHbA1c (Bld) [Mass fraction]6.0 %Normal4.5-6.2The [facility] on above:Performed By: #### A1C #### [facility] [address] [place] [address] Dr. Tessa Martinez 56-19-9864Pdad [Mass/Vol]92.0 ug/tWLwoyur69.0-170.0The [facility] on above:Performed By: #### IRON #### [facility] [address] [place] [address] Dr. Tessa GarzonID PROFILEon 55-81-5531BBBJ-HDL RATIO NORMSEE BELOWWood County HospitalComascension borgess lee hospital on above:Result Comment: 3.3 - 4.4 LOW RISK 4.4 - 7.1 AVERAGE RISK 7.1 - 11.0 MODERATE RISK >11.0 HIGH RISKPerformed By: #### CMP, CRP, LIPID, TSH #### [facility] [address] [place] [address] Dr. Tessa JacksonCholesterol [Mass/Vol]385 mg/dLCritically high<=200The [facility] on above:Performed By: #### CMP, CRP, LIPID, TSH #### [facility] [address] [place] [address] Dr. Tessa Sheridanesterol in HDL [Mass/Vol]136 mg/dLCritically nkor23-84Ubn [facility] on above:Performed By: #### CMP, CRP, LIPID, TSH #### [facility] [address] [place] [address] Dr. Tessa Sheridanesterol in LDL [Mass/Vol]226.6 mg/dLWood County HospitalComment on above:Performed By: #### CMP, CRP, LIPID, TSH #### [facility] [address] [place] [address] Dr. Tessa Dueñas.total/Cholesterol in HDL [Mass ratio]2.8 {ratio} NormalThe [facility] CenterComment on above:Performed By: #### CMP, CRP, LIPID, TSH #### [facility] [address] [place] [address] Dr. Tessa Ahmadi NORMAL> or = 60 mg/dl - LOW CARDIOVASCULAR RISK <40 mg/dl - HIGH CARDIOVASCULAR RISKWood County HospitalComment on above:Performed By: #### CMP, CRP, LIPID, TSH #### [facility] [address] [place] [address] Dr. Tessa Scott CALC NORMALSEE BELOWNoAvita Health System Galion HospitalComment on above:Result Comment: <100 mg/dl OPTIMAL 100 - 129 mg/dl NEAR OR ABOVE OPTIMAL 130 - 159 mg/dl BORDERLINE HIGH 160 - 189 mg/dl HIGH >190 mg/dl VERY HIGH Performed By: #### CMP, CRP, LIPID, TSH #### [facility] [address] [place] [address] Dr. Tessa JacksonTriglyceride [Mass/Vol]112 mg/dLNormal<=150The [facility] Comment on above:Performed By: #### CMP, CRP, LIPID, TSH #### [facility] [address] [place] [address] Dr. Tessa RicheyLDL CALC22.4 mg/dLNoAvita Health System Galion HospitalComment on above: Performed By: #### CMP, CRP, LIPID, TSH #### [facility] [address] [place] [address] Dr. Tessa Elizondo 14(COMP METB)on 47-76-3035Ebthttn [Mass/Vol]4.0 g/dLNormal 3.4-5.0The [facility] CenterComment on above:Performed By: #### CMP, CRP, LIPID, TSH #### [facility] [address] [address] [address] Tessa JacksonAlbumin/Globulin [Mass ratio]1.0 {ratio}NormalThe [facility] Systemment on above:Performed By: #### CMP, CRP, LIPID, TSH #### [facility] [address] [address] [address] Tessa AndrewsP [Catalytic activity/Vol]139 U/LCritically uyqz91-135Tni [facility] CenterComment on above:Performed By: #### CMP, CRP, LIPID, TSH #### [facility] [address] [address] [address] Tessa AndrewsT [Catalytic activity/Vol]86 U/LCritically usvu33-55Pna [facility] CenterComment on above:Performed By: #### CMP, CRP, LIPID, TSH #### [facility] [address] [place] [address] Dr. Tessa Willetton gap [Moles/Vol]14.8 mmol/LNormalThe [facility] Comment on above:Performed By: #### CMP, CRP, LIPID, TSH #### [facility] [address] [place] [address] Dr. Tessa JacksonAST [Catalytic activity/Vol]23 U/MCsrtbj45-66Ryb [facility] on above:Performed By: #### CMP, CRP, LIPID, TSH #### [facility] [address] [place] [address] Dr. Tessa JacksonBilirubin [Mass/Vol]0.4 mg/dLNormal0.2-1.0The [facility] Comment on above:Performed By: #### CMP, CRP, LIPID, TSH #### [facility] [address] [place] [address] Dr. Tessa JacksonCalcium [Mass/Vol]10.0 mg/dLNormal8.5-10.1[facility] Comment on above:Performed By: #### CMP, CRP, LIPID, TSH #### [facility] [address] [place] [address] Dr. Tessa JacksonChloride [Moles/Vol]100 mmol/RBlzzuy82-233Ryp [facility] Comment on above:Performed By: #### CMP, CRP, LIPID, TSH #### [facility] [address] [address] [address] Tessa JacksonCO2 [Moles/Vol]28.0 mmol/JGqqofj89.0-32.0The [facility] Comment on above:Performed By: #### CMP, CRP, LIPID, TSH #### [facility] [address] [address] [address] Tessa JacksonCreatinine [Mass/Vol]0.95 mg/dLNormal0.55-1.02The [facility] CenterComment on above:Performed By: #### CMP, CRP, LIPID, TSH #### [facility] [address] [address] [address] Tessa BairdGFR-AF FIJIAN>60Normal>=60The [facility] CenterComment on above:Performed By: #### CMP, CRP, LIPID, TSH #### [facility] [address] [place] [address] Dr. Tessa BairdGFR-NON AF FIJIAN>60Normal>=60The [facility] CenterComment on above:Performed By: #### CMP, CRP, LIPID, TSH #### [facility] [address] [place] [address] Dr. Tessa JacksonGlobulin (S) [Mass/Vol]3.9 g/dLNormalThe [facility] CenterComment on above:Performed By: #### CMP, CRP, LIPID, TSH #### [facility] [address] [place] [address] Dr. Tessa JacksonGlucose [Mass/Vol]127 mg/dLCritically ncjp32-987Bgc [facility] CenterComment on above:Performed By: #### CMP, CRP, LIPID, TSH #### [facility] [address] [place] [address] Dr. Tessa JacksonPotassium [Moles/Vol]4.8 mmol/LNormal3.5-5.1The [facility] Comment on above:Performed By: #### CMP, CRP, LIPID, TSH #### [facility] [address] [address] [address] Tessa JacksonProtein [Mass/Vol]7.9 g/dLNormal6.4-8.2The [facility] Comment on above:Performed By: #### CMP, CRP, LIPID, TSH #### [facility] [address] [address] [address] Tessa JacksonSodium [Moles/Vol]138 mmol/DGamykp297-763Wwq [facility] Comment on above:Performed By: #### CMP, CRP, LIPID, TSH #### [facility] [address] [place] [address] Dr. Tessa JacksonUrea nitrogen [Mass/Vol]14.0 mg/dLNormal7.0-18.0The [facility] CenterComment on above:Performed By: #### CMP, CRP, LIPID, TSH #### [facility] [address] [place] [address] Dr. Tessa Terrazas nitrogen/Creatinine [Mass ratio]14.7 mg/mgNormalThe [facility] CenterComment on above:Performed By: #### CMP, CRP, LIPID, TSH #### [facility] [address] [place] [address] Dr. Tessa Thompson RATE MAXWELLERGRENon 18-95-0775BXB RATE28 mm/hrNormal<=30The [facility] CenterComment on above:Performed By: #### SEDR #### [facility] [address] [place] [address] Dr. Tessa Taylor 97-72-0435JCI8.639 uIU/mLNormal0.358-3.740The [facility] CenterComment on above:Performed By: #### CMP, CRP, LIPID, TSH #### [facility] [address] [place] [address] Dr. Tessa JacksonCoding Summary.on 58-72-3002Uswizf Summary.CODING DATE: 04/10/2019 [facility] STATUS: Home (Routine DC) PAYOR: [facility] [place] ADMIT DX: REASON FOR VISIT DX: M54.2 [...] result in slightly different terminology. Coded By: Zena Garcia CphTdy Date Saved: 04/10/2019 07:12 [facility] TroyConsultation Noteon 19-52-6121Lkrpuxzzgtqk NoteHOSPITAL REGULATIONS: ALL Positive Important Negative Findings Shall Be Recorded. Date of 04/02/2019 Consultation: Attending Tracie Mars M.D. Physician: Consulting [...] concerns. Chauncey Alicea M.D. gls Dictated: 04/02/2019 #[id number] Typed: 04/08/2019 #[id number] cc: Chauncey Alicea M.D. Tracie Mars M.D.[facility] HospitalComment on above:Result Comment: Electronically Signed By: Deanne QUINTERO, Chauncey Moncada\.br\Date and Time Signed: 04/10/19 09:50 ESTCoding Summary.on 89-94-2982Dedxgx Summary.CODING DATE: 03/20/2019 FINAL [facility] STATUS: Home (Routine DC) PAYOR: [facility] [place] ADMIT DX: REASON FOR VISIT DX: M50.10 [...] By: Charlotte Verduzco Date Saved: 03/20/2019 03:38 [facility] HospitalCoding Summary. on 95-85-6336Ssyomj Summary.CODING DATE: 03/19/2019 FINAL [facility] STATUS: Home (Routine DC) PAYOR: [facility] [place] APC DESCRIPTION 5442 Level 2 Nerve Injections [...] By: Joan Trujillo Date Saved: 03/19/2019 08:43 [facility] TroyConsultation Noteon 13-51-9350Umyebayiqjga NoteHOSPITAL REGULATIONS: ALL Positive Important Negative Findings Shall Be [...] response. Chauncey Alicea M.D. gls Dictated: 03/11/2019 #[id number] Typed: 03/13/2019 #[id number] cc: Jaden Fritz M.D.[facility] HospitalComment on above:Result Comment: Electronically Signed By: Chauncey Alicea MD\.br\Date and Time Signed: 03/19/19 08:22 EDTMain OR Intraoperative Recordon 25-61-6515Gylj OR Intraoperative RecordIntraOp Document Type FTPM Summary Primary Physician: Chauncey Alicea MD Finalized Date/Time: 03/18/19 08:19:23 Pt. Name: SEVERINO GREER Trang MurilloB./Sex: 1970 Female Med Rec #: [id number] Physician: Chauncey Alicea MD Financial #: [id number] Pt. Type: P Room/Bed: / Admit/Disch: 03/18/19 07:41:51 - Institution: Case Times FTPM Entry 1 Patient Times In Room 03/18/19 08:12:00 Out Room 03/18/19 08:21:00 Procedure Times Start 03/18/19 08:16:00 Stop 03/18/19 08:19:00 Anesthesia Times Start 03/18/19 08:12:00 Stop 03/18/19 08:21:00 Last Modified By: Zhang Carrion RN 03/18/19 08:19:10 Case Attendance FTPM Entry 1 Entry 2 Entry 3 Case Attendee Anuradha Wilson MD, Chauncey Carrion RN, Zhang Role Performed Anesthesiologist of Surgeon - Primary Tooth Polisher - Primary Record Time In 03/18/19 08:12:00 03/18/19 08:12:00 03/18/19 08:12:00 Time Out 03/18/19 08:21:00 03/18/19 08:21:00 03/18/19 08:21:00 Procedure CERVICAL EPIDURAL CERVICAL EPIDURAL CERVICAL EPIDURAL STEROID INJECTION(.) STEROID INJECTION(.) STEROID INJECTION(.) Comments SUPERVISED PER DR. WARD Last Modified By: Murali YE, Zhang Carrion RN, Zhang Merlos RN 03/18/19 08:19:12 03/18/19 08:19:12 03/18/19 08:19:12 Entry 4 Entry 5 Entry 6 Case Attendee Galvez RN, Susana Argueta RN, Yuliya Montague RT(R), Ira Role Performed Scrub - Primary Scrub - Other Hand Painter Time In 03/18/19 08:12:00 03/18/19 08:12:00 03/18/19 08:12:00 Time Out 03/18/19 08:21:00 03/18/19 08:21:00 03/18/19 08:21:00 Procedure CERVICAL EPIDURAL CERVICAL EPIDURAL CERVICAL EPIDURAL STEROID INJECTION(.) STEROID INJECTION(.) STEROID INJECTION(.) Comments Last Modified By: Zhang Carrion RN, RN, Zhang Merlos RN 03/18/19 08:19:12 03/18/19 08:19:12 03/18/19 08:19:12 Perioperative [...] X-ray Applicable) PreOp Antibiotic No Time Out Anuradha Wilson, Given Participants Zhang Carrion RN, Galvez RN, Deanne Griffith MD, Eddi Mahajan RT(R), [...] Description C6/7 Primary Procedure Yes Primary Surgeon hCauncey Alicea MD Start 03/18/19 08:16:00 Stop 03/18/19 08:19:00 Anesthesia [...] and tissue Entry 1 Skin Integrity Intact, Converse, Warm, and Skin Abnormality No Dry Outcomes [...] Points Checked Yes By Zhang Carrion RN, Steven FLORIAN, Eddi Weiss RT(R), Ira Outcomes Met? Yes Last Modified By: Zhang [...] 08:15:00 Hair Removal Methods Not Indicated By Galvez RNSusana Outcomes Met? Yes Last Modified By: Zhang [...] Signatures Signed By: Zhang Carrion RN 03/18/19 08:19NoSumma Health [facility]ron CampusMain OR Preoperative Recordon [id number] OR Preoperative RecordHolding Area Document Type FTPM Summary Primary Physician: Chauncey Alicea MD Finalized Date/Time: 03/18/19 07:50:56 Pt. Name: SEVERINO GREER Trang MurilloB./Sex: 1970 Female Med Rec #: [id number] Physician: Chauncey Alicea MD Financial #: [id number] Pt. Type: P Room/Bed: / Admit/Disch: 03/18/19 [...] or her perioperative plan of care The patient'sright to privacy is maintained Surgery Checklist FTPM [...] No Patient states Yes Comment - Adult Dwight, Gamaliel postop adult Supervision supervision available Case Cancelled in No Holding Area see comments below for reason Last Modified By: Liseth Delacruz RN 03/18/19 07:50:52 Finalized By: Liseth Delacruz RN Document Signatures Signed By: Liseth Delacruz RN 03/18/19 07:50NoSumma Health Akron CampusOperative Report on [id number] ReportPatient: SEVERINO GREER Age: 48 years Sex: Female [...] procedure room and placed in the prone positionwith the neck flexed. Time out was taken. [...] resistance technique with a plastic JO syringe. [id number] was injected under live fluoroscopy which demonstrated [...] Pressure, Monitered 113 mmHg SpO2 99 % .[facility] HospitalComment on above:Result Comment: Electronically Signed By: Chauncey Alicea MD\.br\Date and Time Signed: 03/18/19 08:20 EDTCoding Summary.on 14-63-4315Gznrln Summary.CODING DATE: 02/28/2019 FINAL [facility] STATUS: Home (Routine DC) PAYOR: [facility] [place] APC DESCRIPTION 5442 Level 2 Nerve Injections [...] By: Charlotte Verduzco Date Saved: 02/28/2019 10:26 [facility] [id number] OR Intraoperative RecordIntraOp Document Type FTPM Summary Primary Physician: Chauncey Alicea MD Finalized Date/Time: 02/26/19 08:23:08 Pt. Name: SEVERINO GREER./Sex: 1970 Female Med Rec #: [id number] Physician: Chauncey Alicea MD Financial #: [id number] Pt. Type: P Room/Bed: / Admit/Disch: 02/26/19 07:04:10 - Institution: Case Times FTPM Entry 1 Patient Times In Room 02/26/19 08:17:00 Out Room 02/26/19 08:24:00 Procedure Times Start 02/26/19 08:20:00 Stop 02/26/19 08:22:00 Anesthesia Times Start 02/26/19 08:17:00 Stop 02/26/19 08:24:00 Last Modified By: Trinidad Vega RN 02/26/19 08:23:02 Case Attendance FTPM Entry 1 Entry 2 Entry 3 Case Attendee Chauncey Alicea MD, JR, DO, Trinidad Cabrales RN Role Performed Surgeon - Primary Anesthesiologist of Tooth Polisher - Primary Record Time In 02/26/19 08:17:00 02/26/19 08:17:00 02/26/19 08:17:00 Time Out 02/26/19 08:24:00 02/26/19 08:24:00 02/26/19 08:24:00 Procedure CERVICAL EPIDURAL CERVICAL EPIDURAL CERVICAL EPIDURAL STEROID INJECTION(.) STEROID INJECTION(.) STEROID INJECTION(.) Comments Last Modified By: Silvia RN, Trinidad Vega RN, Trinidad Vega RN, Trinidad Donis 02/26/19 08:23:03 02/26/19 08:23:03 02/26/19 08:23:03 Entry 4 Entry 5 Entry 6 Case Attendee Lenny RN, Susana Argueta RN, Thalia Carr Role Performed Scrub - Other Scrub - Primary Hand Painter Time In 02/26/19 08:17:00 02/26/19 08:17:00 02/26/19 08:17:00 Time Out 02/26/19 08:24:00 02/26/19 08:24:00 02/26/19 08:24:00 Procedure CERVICAL EPIDURAL CERVICAL EPIDURAL CERVICAL EPIDURAL STEROID INJECTION(.) STEROID INJECTION(.) STEROID INJECTION(.) Comments Last Modified By: Silvia RN, Trinidad Vega RN, Trinidad Vega RN, Trinidad Donis 02/26/19 08:23:03 02/26/19 08:23:03 02/26/19 08:23:03 Perioperative [...] X-ray Applicable) PreOp Antibiotic No Time Out lElis Falk JR, DO, Myers RN, Kendall Mcclure RN, Deanne Ya MD, [...] Description C6/7 Primary Procedure Yes Primary Surgeon Chauncey Alicea MD Start 02/26/19 08:20:00 Stop 02/26/19 08:22:00 Anesthesia [...] and tissue Entry 1 Skin Integrity Intact, Converse, Warm, and Skin Abnormality No Dry Outcomes [...] and symptoms of infection Departure From OR FT Pre-Care Text: Transports according to [...] Signatures Signed By: Trinidad Vega RN 02/26/19 [facility]23[facility] Recordon [id number] OR Preoperative RecordHolding Area Document Type FTPM Summary Primary Physician: Chauncey Alicea MD Finalized Date/Time: 02/26/19 07:44:06 Pt. Name: SEVERINO GREER Trang Rees/Sex: 1970 Female Med Rec #: [id number] Physician: Chauncey Alicea MD Financial #: [id number] Pt. Type: P Room/Bed: / Admit/Disch: 02/26/19 [...] or her perioperative plan of care The patient'sright to privacy is maintained Surgery Checklist FTPM Entry 1 Patient Birthday, ID Band Procedure Surgical Consent, With Identification: Check, Patient Verification: Patient Participation NPO after Midnight: Yes Results Reviewed none Comments: Personal Items 5 earrings Complaints of Pain: Yes Comment: Pain Comment: 12/12 neck pain Operative Site Yes Marking: Marked By: Pedro Pablo Alicea Availability Equipment, X-Ray Verified: Does Patient Smoke No Patient states Yes Comment - Adult Julian postop adult Supervision supervision available Case Cancelled in No Holding Area see comments below for reason Last Modified By: Malorie Tolbert RN 02/26/19 07:43:33 Finalized By: Malorie Tolbert RN Document Signatures Signed By: Malorie Tolbert RN 02/26/19 07:44NoSum[facility]ron CampusOperative Reporton [id number] ReportPatient: SEVERINO GREER Age: 48 years Sex: Female [...] procedure room and placed in the prone positionwith the neck flexed. Time out was taken. [...] resistance technique with a plastic JO syringe. [id number] was injected under live fluoroscopy which demonstrated [...] good condition with post-procedure instructions. No apparent complications.[facility] HospitalComment on above: Result Comment: Electronically Signed By: Deanne QUINTERO, Chauncey Lemus.aston\Date and Time Signed: 02/26/19 08:22 EDTProgress Note-Physicianon 57-53-0430Obxxgzuz Note-PhysicianPatient: SEVERINO GREER Age: 48 years Sex: Female [...] Acute carpal tunnel syndrome / SNOMED CT 62708658 / Confirmed, Active Problems (1) Acute carpal tunnel syndrome Histories Past Medical History: No active or resolved past medical history items have been selected or recorded. Family History: No family history items have been selected or recorded. Procedure history: Carpal tunnel release ([id number]). Comments: 01/15/2019 10:32 - Day Colleen WEAVER 2003 bilateral Social History Social & Psychosocial Habits Tobacco 01/15/2019 Risk Assessment: Denies Tobacco Use 02/05/2019 Tobacco Use: Never (less than 100 in l. Physical Examination Vital Signs (last 24 hrs) Last Charted Temp Oral 36.5 DegC (FEB 26:) Resp Rate 16 br/min (FEB 26:) SBP 123 mmHg (FEB 26:) DBP 88 mmHg (FEB 26:) SpO2 96 % (FEB 26:) Weight 77.11 kg (FEB 26 07:39) Height 167.4 cm (FEB 26:39) Airway: Normal oral/pharyngeal anatomy.. Respiratory: Adequate air exchange.. Cardiovascular: Adequate perfusion and function. Review / Management Results review: No qualifying data available. Plan [place] [employer]esthesi[employer] (ASA) physical status classification: Class II. Anesthetic Preoperative Plan Anesthesia: Monitored anesthesia care. Anesthetic plan, risks, benefits, and alternatives discussedwith the patient and/or family. Pt. and/or family present and agree to proceed as planned.. Discussed with pt the importance of abstaining from tobacco products, and offered counseling if pt desires..[facility] HospitalComment on above:Result Comment: Electronically Signed By: Ellis Falk JR, DO.br\Date and Time Signed: 02/26/19 08:34 EDTCoding Summary.on 67-40-8052Ggdpsl Summary.CODING DATE: 02/13/2019 FINAL [facility] STATUS: Home (Routine DC) PAYOR: [facility] [place] ADMIT DX: REASON FOR VISIT DX: M54.2 Cervicalgia M79.603 Pain in arm, unspecified FINAL DX: PRINCIPAL: M54.12 Radiculopathy, cervical region SECONDARY: M50.20 Other cervical disc displacement, unspecified cervical region Z79.899 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 However, the narrative phrase printed from the coding software may appear abbreviated, or result in slightly different terminology. Coded By: Denise Garcia CphT Date Saved: 02/13/2019 07:11 [facility]ult[facility] Noteon [id number] NoteHOSPITAL REGULATIONS: ALL Positive Important Negative Findings Shall Be [...] her pain as well. Treatments have included long term care administrator with Dr. Mars with minimal relief, and [...] not responded to appropriate conservative care including long term care administrator and regular use of non-steroidal anti-inflammatory medications. [...] meanwhile. Chauncey Alicea M.D. aek Dictated: 02/05/2019 #[id number] Typed: 02/08/2019 #[id number] cc: Jaden Fritz M.D. Timothy A Moore, MDMercy Memorial HospitalComment on above:Result Comment: Electronically Signed By: Deanne QUINTERO, Chauncey Moncada\.br\Date and Time Signed: 02/11/19 09:25 EDTConsultation Noteon 79-90-2707Qnfhauwmkgad Note HOSPITAL REGULATIONS: ALL Positive Important Negative Findings Shall Be Recorded. Date of 01/15/2019 Consultation: Attending Tracie Mars M.D. Physician: Consulting Doyle Bustos MD Physician: CHIEF COMPLAINT: Neck, right arm misery. HISTORY OF PRESENT ILLNESS: A 48 year old female left-hand dominant. 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 Two [...] if conservative treatment fails for surgical options. Doyle Bustos MD lkr Dictated: 01/15/2019 #[id number] Typed: 01/17/2019 #[id number] cc: Jaden Yeager MDMercy Memorial HospitalComment on above:Result Comment: Electronically Signed By: Doyle Bustos MD\.br\Date and Time Signed: 01/25/19 16:46 EDTCoding Summary.on 39-61-8365Bezasp Summary.CODING DATE: 01/18/2019 FINAL [facility] STATUS: Home (Routine DC) PAYOR: [facility] [place] ADMIT DX: REASON FOR VISIT DX: M54.2 [...] Denise Garcia CphT Date Saved: 01/18/2019 09:40 [facility] Vital Signs Date TimeVital SignValuePerforming KzcrocahmEvpxkgsj19-14-8488 10:10-0400Body zhtfyx272.64 cmCmarilee Eaton Other [employer] Other 08-16-2023 10:10-0400Body mass index (BMI) [Ratio] 26.31 kg/s1CzhfhuLili Eaton Other [employer] Other 08-16-2023 10:10-0400Body lxiqln34.94 kgLili Eaton Other [employer] Other 08-16-2023 10:10-0400Diastolic blood gqddlyng22 mm[Hg] Lili Eaton Other [employer] Other 08-16-2023 10:10-0400Respiratory rate18 /minLili Eaton Other [employer] Other 08-16-2023 10:10-8040QsB0% (BldA) [Mass fraction]100 % Lili Eaton Other [employer] Other 08-16-2023 10:10-0400Systolic blood itperepm902 mm[Hg] Lili Eaton Other [employer] Other Encounters Encounter DateEncounter TypeCare ProviderFacilityStart: 01-18-2023 End: 98-19-8164vvcscndtyyJryvvd Lewis Other [employer] Other Start: 69-21-5481Baiujm outpatient visit 15 minutes [facility]deStart: 02-03-2022 End: 38-72-5178cxzisijrcmBL TRACIE HOYFacility:H1 Procedures DateProcedureProcedure DetailPerforming ClinicianStart: 10-81-2949Iieiuibswd consultationStart: 84-79-2554Jaepbvjfvh consultation Payers DatePayer CategoryPayerPolicy [id number] Cross Zachery [id number] Social History DateTypeDetailFacilitySex Assigned At [facility] [employer] Other Evaluation note 01-18-2023 Note Date & NyakVjoeRfghbana48-64-1904 Evaluation note* Encounter Date Diagnosis Assessment Notes Treatment Notes Treatment Clinical Notes Jan, Left foot pain (ICD-10 - M79.672 ) XR yesterday was negative for fracture or other abnormality. Discussed possible causes of pt sx with them in office today. Discussed poss sprain/strain vs gout. Rx steroid as directed with food. Avoid nsaids while on steroid. Discussed with pt that if sx become chronic they may need to f/u with pcpfor chronic management. F/u with pcp, sooner in ER for worsening sx. Pt understood and agreed to txplan. [employer] Other Summary Purpose Family History No Family [...] Acute carpal tunnel syndrome / SNOMED CT 86054079 / Confirmed Physical Examination Intake and Output Pt. denies significant n/v, and is tolerating p.o. Vital Signs (last 24 hrs) Last Charted Temp Oral 36.5 DegC (FEB 26 08:27) (more content not included)... Additional Source Comments INFORMATION SOURCE (unrecogn ized section and content) DATE CREATED AUTHOR 04/10/2019 [facility] DATE CREATED AUTHOR AUTHOR'S ORGANIZ ATION 02/04/2022 [facility] REASON FOR VISIT (unrecogniz ed section and [...] BE BASED ON THE PRIMARY CLINICAL RECORDS. [employer] provides no warranty or guarantee of the accuracy or completeness of information in this document.
--- OUTSIDE RECORDS SUMMARY | 2025-04-17 14:42 | XMS_ITS | Patient Health Record ---
Author Organization [facility] in [place] Address [address] [place] [address] Care Team Providers Care Guitar Repairer Name Role Phone Dusty Mars Primary Care Provider [phone] Natividad Bowser Unavailable [phone] Allergies No Known Allergies Results Component Value Reference Range Notes CBC AUTO DIFF Reviewed date:05/13/2024 10:14:57 AM Interpretation: Performing Lab: Notes/Report: [facility] , White Blood Count 5.2 4.0-11.0 10 3/uL Red Blood Count4.314.20-5.40 10 6/ySIvdajpplgk21.212.0-16.0 g/yDVvrrakblio32.3 36.0-48.0 %Mean Corpuscular Cehhak80.581.0-99.0 fLMean Corpuscular Hemoglobin 30.626.7-34.0 pgMean Corpuscular HGB Conc32.829.9-35.2 g/dLRed Cell Distribution Width12.211.0-15.0 %Platelet Kgplm895631-834 10 3/uLMean Platelet Volume9.89.5- 13.5 fLNeutrophils Percent Auto37.943.0-75.0 %Lymphocytes Percent Auto45.220.5- 60.0 %Monocytes Percent Auto9.71.7-12.0 %Eosinophils Percent Auto5.80.9-7.0 % Basophils Percent Auto1.20.2-2.0 %Immature Granulocytes Pct Auto0.20.0-0.5 % Neutrophils Absolute Auto2.01.4-6.5 10 3/uLLymphocytes Absolute Auto2.31.2-3.8 10 3/uLMonocytes Absolute Auto0.50.3-0.8 10 3/uLEosinophils Absolute Auto0.30.0- 0.7 10 3/uLBasophils Absolute Auto0.10.0-0.1 10 3/uLImmature Granulocytes Abs Auto0.010.00-0.03 10 3/uLPerforming Lab:see noteML - [facility] LB PROF CHEM 8 (BAS METB) Reviewed date:05/13/2024 10:14:57 AM Interpretation: Performing Lab: Notes/Report: [facility] ,Gpteut522277-214 mmol/LPotassium4.73.5-5.1 mmol/UDkwyofom68973-398 mmol/LCarbon Olsiwkf92.621.0-32.0 mmol/LAnion Gap13.7Cfsiwpx9664-770 mg/dLBlood Urea Nitrogen 15.07.0-18.0 mg/dLCreatinine0.920.55-1.02 mg/dLEstimated GFR ( Vidhya>60 >=60 mL/min/1.73m 2Estimated GFR (Non- Suad>60>=60 mL/min/1.73m 2BUN Creatinine Ratio16.1Ppnvoah7.78.5-10.1 mg/dLPerforming Lab:see noteML - [facility] LBMRSA Screening Culture Reviewed date:05/15/2024 07:31:13 PM Interpretation: Performing Lab: Notes/Report: [facility] ,MRSA Screening CultureSee Below For Report MRSA Screening Culture MRSA Screening CultureNegative MRSA Screening Culture MRSA Screening CulturePerformed at: CB - [facility] [place] MRSA Screening Culture MRSA Screening [address] [place], [place] [address] MRSA Screening Culture MRSA Screening CultureLab Director: Coy Jurado PhD, Phone: [phone] MRSA Screening Culture Performing Lab:see note LC - [facility] LB SEE REPORT - Supervisor Chemical Id information not found for OBX-specific machine tool operator legend ECG 12 lead Reviewed date:05/14/2024 08:34:58 PM Interpretation: Performing Lab: Notes/Report: Source Facility: [facility]-[address] [place] [address] [place] [address] Electrocardiograph Report Signed Patient: SEVERINO GREER MR#: [id number] : 1970 Acct:[id number] Age/Sex: 53 / F ADM Date: 05/13/24 Loc: LAB Attending Dr: Edwina RUTHERFORD Ordering Physician: Edwina Dash Date of Service: 05/13/24 Procedure(s): ECG 12 lead Accession Number(s): [id number] cc: [facility] Test Date: 2024-05-13 Pat Name: SEVERINO GREER Department: Room: - Gender: Female 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 Signed By: 05/13/24225005/13/242250 DD/ 8 TD/TT: Profile Stitching Machine Operator:ABDIAZIZ chest 2V Reviewed date:05/13/2024 10:14:57 AM Interpretation: Performing Lab: Notes/Report: Source Facility: [place] [address] [place] [address] XRay Report Signed Patient: SEVERINO GREER MR#: [id number] : 1970 Acct:[id number] Age/Sex: 53 / F ADM Date: 05/13/24 Loc: LAB Attending Dr: Edwina RUTHERFORD Ordering Physician: Edwina Dash Date of Service: 05/13/24 Procedure(s): XR chest 2V Accession Number(s): [id number] cc: Octavio Mars M.D.; Edwina Dash [place] [address] Patient Name: SEVERINO GREER MRN: [id number] date: 1970 Sex: F Assigned Patient Location: LAB Current Patient Location: LAB Accession/Order Number: [id number] Exam Date: 05/13/2024 06:57 Report Date: 05/13/2024 07:57 At the request of: EDWINA DASH Procedure: XR chest 2V EXAMINATION: XR chest 2V HISTORY: Z01.812 PRE OP, M50.30 DDD COMPARISON: No relevant comparison available. FINDINGS: LUNGS: No significant pulmonary parenchymal abnormalities. VASCULATURE: No increased pulmonary vasculature. PLEURA: No pneumothorax, effusion, or pleural thickening. CARDIAC: No cardiomegaly or cardiac silhouette abnormality. MEDIASTINUM: No visible mass or adenopathy. BONES: No fracture or visible bone lesion. OTHER: Negative. XR/XR chest 2V IMPRESSION: 1. Normal chest. Electronically authenticated by: YOANDY CLANCY Date: 05/13/2024 07:57 Dictated By: Yoandy Clancy M.D. Signed By: 05/13/24 0759 DD/ 0757 TD/TT: Profile Stitching Machine Operator:Prothrombin Time INR Reviewed date:05/13/2024 10:14:57 AM Interpretation: Performing Lab: Notes/Report: [facility] ,Prothrombin Time10.99.0-11.6 secINR1.03 DESIRED INR: 2.0-3.0 CONDITIONS NOT LISTED BELOW 2.5-3.5 FOR PROSTHETIC HEART VALVE REPLACEMENT 2.5-3.5 RECURRENT THROMBOSIS Performing Lab:see noteML - [facility] LBPTT Reviewed date:05/13/2024 10:14:57 AM Interpretation: Performing Lab: Notes/Report: [facility] ,Partial Thromboplastin Time24.922.3-36.2 secPerforming Lab:see noteML - [facility] LBXR cervical spine 2-3V Reviewed date:07/16/2024 12:47:21 PM Interpretation: Performing Lab: Notes/Report: Source Facility: [facility]-[address] [place] [address] [place] [address] XRay Report Signed Patient: SEVERINO GREER MR#: [id number] : 1970 Acct:[id number] Age/Sex: 53 / F ADM Date: 07/15/24 Loc: EC Attending Dr: Edwina RUTHERFORD Ordering Physician: Edwina Dash Date of Service: 07/15/24 Procedure(s): XR cervical spine 2-3V Accession Number(s): [id number] cc: Octavio Mars M.D.; Edwina Dash [place] [address] Patient Name: SEVERINO GREER MRN: [id number] date: 1970 Sex: F Assigned Patient Location: Current Patient Location: Accession/Order Number: [id number] Exam Date: 07/15/2024 10:05 Report Date: 07/16/2024 09:36 At the request of: EDWINA DASH Procedure: XR cervical spine 2-3V EXAMINATION: XR cervical spine 2-3V HISTORY: CERVICAL SPINE PAIN COMPARISON: 02/23/2024 FINDINGS: BONES: Normal alignment with no acute fracture or spondylolisthesis. Anterior fusion C5-C7 with no mechanical failure. Mild spondylosis. Moderate facet osteoarthropathy DISC SPACES: Interbody spacers C5-C7 PARASPINOUS: Negative. No paraspinous abnormality is seen. OTHER: Negative. XR/XR cervical spine 2-3V IMPRESSION: Anterior fusion C5-C7 with no mechanical failure. Electronically authenticated by: LIZZETH BLACKBURN Date: 07/16/2024 09:36 Dictated By: Lizzeth Blackburn M.D. Signed By: 07/16/2439 DD/ TD/TT: Profile Stitching Machine Operator:XR cervical spine 2-3V Reviewed date:08/23/2024 04:13:50 PM Interpretation: Performing Lab: Notes/Report: Source Facility: [facility]-[address] [place] [address] [place] [address] XRay Report Signed Patient: SEVERINO GREER MR#: [id number] : 1970 Acct:[id number] Age/Sex: 53 / F ADM Date: 08/23/24 Loc: EC Attending Dr: Mick Mancuso M.D. Ordering Physician: Mick Mancuso M.D. Date of Service: 08/23/24 Procedure(s): XR cervical spine 2-3V Accession Number(s): [id number] cc: Octavio Mars M.D.; Mick Mancuso M.D. [place] [address] Patient Name: SEVERINO GREER MRN: [facility]:[id number] date: 1970 Sex: F Assigned Patient Location: Current Patient Location: Accession/Order Number: [id number] Exam Date: 08/23/2024 10:06 Report Date: 08/23/2024 10:07 At the request of: MICK MANCUSO MD Procedure: XR cervical spine 2-3V CERVICAL SPINE 2 views: CLINICAL HISTORY: Follow-up fusion hardware COMPARISON: Cervical spine series 07/15/2024 FINDINGS: Anterior fusion hardware C5-C7 without hardware complication. Vertebral body heights appear maintained. Facet joint degenerative changes. No prevertebral soft tissue swelling. XR/XR cervical spine 2-3V IMPRESSION: NO HARDWARE COMPLICATION. Impression dictated by: Kt Obrien Jr., D.O.08/23/2024 10:07 AM Dictation Location: [place] [address] Electronically authenticated by: [id number] Y Date: 08/23/2024 10:07 Dictated By: Kt Obrien M.D. Signed By: 08/23/24 1010 DD/ 1007 TD/TT: Profile Stitching Machine Operator: Reason For Referral Diagnosis 1 Left foot pain (M79. 672) Referral Organization [facility] Referring Provider First Name Dusty Referring Provider Last Name Madisyn Referring Provider Speciality [facility] ankit Referred Provider Sanchez Ordaz Referred Provider Specialty Podiatry Referral Priority Routine Medications Medication SIG (Take, Route, Frequency, Duration) [...] Question Answer Notes Patient is a nonsmoker Alcohol Screen (Audit-C) Question Answer Notes Did you have a drink containing alcohol in the p ast year? 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) ActiveconfirmedProblemAcquired hallux rigidus (2799800)Hallux rigidus, right foot (M20.21)ActiveconfirmedProblemContracture of joint of right ankle (disorder) (652087377988567)Contracture, 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)Activeconfirmed ProblemOsteopenia (562854113)Osteopenia (M85.80)ActiveconfirmedProblemGout (96365789)Gout (M10.9)ActiveconfirmedProblemCervical disc disease (967472425) Cervical disc disease (M50.90)ActiveconfirmedProblemPain in limb (52263524)Foot pain, right (M79.671)ActiveconfirmedProblemShoulder mass (R22.30)Activeconfirmed Vital Signs Blood pressure diastolic 82 mm Hg 04/15/2025 Pvaofx21 in04/15/2025lood pressure axjhtwzr399 mm Hg04/15/20252666Nbdfyi512.0 lbs 04/15/2025BMI25.53 kg/m204/15/2025 Encounters Encounter Location Date Provider Diagnosis [facility] [address] [place] [address] 09/17/2024 Natividad Bowser Gout M10.9 [facility] [address] [place] [address] 05/20/2024 Dusty Hoy Cervical disc diseas e M50.90 [facility] [address] [place] [address] 04/15/2025 Dusty Hoy Gout M10.9 [facility] [address] [place] [address] 04/25/2024 Dusty Hoy Acute non-recurrent sinusitis, unspecified location J01.90 and Nasal congestion R09.81 [facility] [address] [place] [address] 04/17/2025 Dusty Hoy Left foot pain M79.672 [facility] [address] [facility] [place] [address] 05/30/2024 Dusty Hoy [facility] [facility] [place] [address] [facility] [place] [facility] [place] [address]/08/2025Doug HoyGout M10.9 Assessments Encounter Date Diagnosis (ICD Code) Assessment Notes Treatment Notes Treatment Clinical Notes Section Notes 09/17/2024 Gout (ICD-10 - M10.9) Kenalog 80 ok for OWN 04/15/2025Gout (ICD-10 - M10.9) may want to try uloric if has repeat flare taper prednsione if not better friada 01/10/2025Gout (ICD-10 - M10.9)04/17/2025Left foot pain (ICD-10 - M79.672) 05/20/2024ervical disc disease (ICD-10 - M50.90) reviewesd lab s and cxr and ecg - all normla cleared for OR 04/25/2024cute non-recurrent sinusitis, unspecified location (ICD-10 - J01.90) Rest and drink more liquids, especially water. You may use a humidifier or vaporizer to help keep the drainage moist. Wbvt-iah-cxmxlka Nasal Saline may help the stuffy and runny nose. Use Ibuprofen and or Tylenol as needed for fever, chills, body aches or pain. Children 5 years old should not be given fdfg-kjc-xaclidl cough and cold medications such as guaifenesin and dextromethorphan. If you're over age 5, you may try hofc-zjq-esymunb cold medications such as guaifenesin and dextromethorphan, or multi-symptom cold reliever such as Dayquil to help reduce the symptoms. Antibiotics have been pre scribed. You should take these until completed and follow the directions. Antibiotics can sometimescause upset stomach, and in rare cases, serious allergic reactions or serious gastrointestinal problems. If you start having severe abdominal pain, severe vomiting, or bloody diarrhea, you should be r eevaluated by your physician or urgent care immediately. Follow up with your Primary Care Provider or return to clinic if symptoms do not improve within 3-5 days04/25/2024Nasal congestion (ICD-10 - R09.81) Plan Of Treatment Pending Test Test Name Order Date XR Foot LT (3 views) * 01/17/2023 CMP - Comprehensive Metabolic Panel 01/04 CBC W/AUTO DIFF 01/24/2023 AMMONIA 01/24/2023 HEPATITIS PANEL, ACUTE 01/24/2023 LIVER PROFILE 01/24/2023 PROTIME 01/24/2023 PTT 01/24/2023 SED RATE WESTERGREN 01/24/2023 URIC ACID SERUM 01/24/2023 MRI CSPINE WO CON 02/22/2024 XR DEXA BONE DENSITY 12/19/2022 XR FOOT LT MIN 3 VIEWS 11/30/2022 XR SHOULDER RT 2V or > 02/22/2024 XR FOOT 1-2 VIEWS LEFT 04/17/2025 Insurance Providers Payer Name Payer Address Payer Phone Subscriber Number Group Number Insured Name Patient Relationship to Insured Coverage Start Date Coverage End Date AN[employer] ACCESS PPO PLUS LOCAL PLAN [address] [place] [address] [id number] Najeraluis carlos - patient is the spouse of the insured Medications Administered Medication Instructions Date of Administration Dosage Notes Dexamethasone, 4mg/mL mgKenalog-4006/ mgKenalog-400/20 mgKetorolac Agoifrlpwtsm42/15/202460 mgKetorolac Daerijsrcdgw78/11/202560 mgTriamcinolone 40 mg/ml mg Medical (General) History Medical History History ICD Code Vertigo R42 Collapse R55 Degenerative cervical disc M50.30 Benign essential HTN I10 Disc displacement, 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
--- OUTSIDE RECORDS SUMMARY | 2025-04-17 14:43 | XMS_ITS | Patient Health Record ---
Author Organization [facility] Address [address] [place] [address] Care Team Providers Care Target Protection Specialist Name Role Phone Octavio Mars Primary Care Provider UnavailMicahel Varela Unavailable [phone] Yoandy Burns Unavailable [phone] Manjinder Brunson Unavailable [phone] Edwina Turcios Unavailable [phone] Results Component Value Reference Range Notes Surgery Scheduling (Not yet reviewed by provider) Interpretation: Performing Lab: Notes/Report: Primary Insurance Company: [employer] Surgeon/Assist:MARÍA/YOANDY OR ALEXISSurgery Location:IOSSurgery Date & Time: 06/03/24 @ 7AMHosp arrival time day of:5:15AMSurgery End Time:9AMProcedure:C5-7 ACDFSpecial Equipment:SSEP, SUPINE, OR TABLE, STRYKERDiagnosis:M48.02 CERVICAL STENOSISAdmission Type:OUTPATIENTAnesthesia Type/CPNB:ZAAPUTIWag18 HOURPost-op Appointment Date:07/12/24 @ 9:50AM ANNIEatex AllergyNOLab [facility] Physician:05/20/24 @ 10:30amHistory & Physical Appointment Date/:05/24/24 @ 9:10AM ENGLEWOOD Reason For Referral Reason APPROVED............................06/03/24................................DENITA GOODMAN ([employer]) C5-7 ACDF 37148, 51178, 07292, 74781 Diagnos is 1 Cervical spinal stenosis (M48.02) Diagnos is 2 DDD (degenerative disc disease), cervica l (M50.30) Diagnos is 3 Cervical radiculopathy (M54.12) [facility] Referri ng Provide r First Name Michael Avelarri ng Provide r Last Name St Swathi Castellano ng Provide r Special ity Orthopedic Surgery Referre d Angeline kareem [facility] - Outpatient Referre d Provide r [facility] Referre d Address [address] [facility],[address],[place], [place],[address] 030,US Procedu re 1 Arthrodesis, anterior interbody, includi ng disc space prep, discectomy, osteophytectomy & decompression of spinal cord and/or nerve roots, cervical below C2 (22618) Procedu re 2 Arthrodesis, cervical below C2 each add' l interspace (17480) Procedu re 3 Anterior instrumentation; 2-3 vertebral segments (96375) Procedu re 4 Allograft for spine surgery only; struct ural () General Notes Franci Hester 04/18/2024 11:27:22 AM >, Melody Walker 04/18/2024 12:50:34 PM > ANTHEM ACTIVE AND EFFECTIVE 06/05/22 PER [employer]. NO AUTHORIZATION REQUIRED FOR CPT CODES 05963, 04235, 83168 PER [employer]. SCANNED INTO CHART. AUTHORIZATION REQUEST SUBMITTED WITH CLINICALS VIA [employer] FOR CPT CODE 18204, PENDING AUTHORIZATION # [id number], Melody Walker 04/22/2024 08:27:50 AM > AUTHORIZATION # [id number] APPROVED AND VALID 06/03/24-06/02/25 PER FAX BACK FROM [employer]. SCANNED INTO CHART AND SENT OVER TO [employer] Franci Hester 04/25/2024 09:26:50 AM > Referra l Priorit y Routine Problems Problem Type SNOMED Code ICD Code Onset Dates Problem Status W/U Status Risk Notes Problem Cervical radiculopathy (50022311) Cervica l radiculopathy (M54.12) ActiveconfirmedProblemCervical spinal stenosis (24182883)Cervical spinal stenosis (M48.02)ActiveconfirmedProblemHistory of arthrodesis (569920038) Arthrodesis status (Z98.1)ActiveconfirmedProblemRemoval of all drains (procedure) (500230602)Encounter for change or removal of drains (Z48.03)Active confirmedProblemDegeneration of cervical intervertebral disc (32994113) Degeneration of intervertebral disc at C6-C7 level (M50.323)Activeconfirmed ProblemDegeneration of cervical intervertebral disc (97947091)Degeneration of C5-C6 intervertebral disc (M50.322)ActiveconfirmedProblemEncounter for other orthopedic aftercare (Z47.89)Activeconfirmed Encounters Encounter Location Date [facility] [address] [facility] [place] [address] 05/24/2024 Manjinder Brunson Degeneration of intervertebral disc at C6-C7 level M50.323 ; Degeneration of C5-C6 intervertebral disc M50.322 ; Cervical radiculopathy M54.12 and Cervical spinal stenosis M48.02 [facility] - Outpatient [address] [place] [address] Drive [address] [place], [place] [id number] 06/03/2024 Michael Sprague Cervical spinal stenosis M48.02 ; Degeneration of C5-C6 intervertebral disc M50.322 and Degeneration of intervertebral disc at C6-C7 level M50.323 [facility] [address] [facility] [place] [address] [place] [address] 06/07[facility]20[facility] Encounter for other orthopedic aftercare Z47.89 ; Encounter for change or removal of drains Z48.03 and Arthrodesis status Z98.1 [facility] [address] [place] [address] [place] [address] 07/15/2024 [facility] Encounter for other orthopedic aftercare Z47.89 [facility] [address] [facility] [place] [address] 08/23/2024 [facility] Encounter for other orthopedic aftercare Z47.89 and Arthrodesis status Z98.1 [facility] [address] [place] [address] 06/03/2024 [address] Sprague [address] [place] [address]/08/2024 Michael Kelleyftercmiryam following surgery of the musculoskeletal system Z47.[address] [place] [address]/01/2025 Yoandy Burns Assessments Encounter Date Diagnosis (ICD Code) Assessment Notes Treatment Notes Treatment Clinical Notes Section Notes 05/24/2024 Degeneration of inte rvertebral disc at C6-C7 level (ICD-10 - M50.323) 05/24/2024egeneration of C5-C6 intervertebral disc (ICD-10 - M50.322)06/03/2024 Cervical spinal stenosis (ICD-10 - M48.02)06/07/2024Encounter for change or removal of drains (ICD-10 - Z48.03)1. 4 days s/p C5-7 ACDF06/07/2024Encounter for other orthopedic aftercare (ICD-10 - Z47.89)1. 4 days s/p C5-7 ACDF 06/07/2024ftercare following surgery of the musculoskeletal system (ICD-10 - Z47.89)07/15/2024Encounter for other orthopedic aftercare (ICD-10 - Z47.89)1. 6 weeks s/p C5-7 ACDF08/23/2024rthrodesis status (ICD-10 - Z98.1)1. 3 months s/p C5-7 ACDF08/23/2024Encounter for other orthopedic aftercare (ICD-10 - Z47.89)1. 3 months s/p C5-7 ACDF1egeneration of C5-C6 intervertebral disc (ICD- 10 - M50.322)06/07/2024rthrodesis status (ICD-10 - Z98.1)1. 4 days s/p C5-7 ACDF107/25/2023ervical radiculopathy (ICD-10 - M54.12)05/24/2024ervical spinal stenosis (ICD-10 - M48.02)06/03/2024egeneration of intervertebral disc at C6-C7 level (ICD-10 - M50.323)06/07/2024Other Plan established by Dr. Mancuso. Patients cervical drain removed in office today without issue and patient tolerated well. Dressing placed over the incision. Patient will follow-up at her regularlyscheduled postop visit. The patient is very much in agreement with the treatment and/or diagnostic plan set forth and all questions were answered to the patient's satisfaction. Thanks once again. If we can be of further service to your patients with disorders of the spine, cervical, thoracic, or lumbar, please do not hesitate to contact Dr. Mancuso. Best regards, 1. 4 days s/p C5-7 ACDF07/15/2024Other Patient is doing well postoperatively and is gradually returning to activity. I will give her a note to return to work with no restrictions on 07/31/2024. 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 We will see her back in 6 weeks for her next postop recheck. The patient is very much in agreement withthe treatment and/or diagnostic plan set forth and all questions were answered to the patient's satisfaction. Thanks once again. If we can be of further service to your patients with disorders of the spine, cervical, thoracic, or lumbar, please do not hesitate to contact Dr. Mancuso. 1. 6 weeks s/p C5-7 ACDF08/23/2024Other Patient is doing good postoperatively and is back to work without issue. We will see her back in 3 months for her next postop recheck. The patient is very much in agreement with the treatment and/or diagnostic plan set forth and all questions were answered to the patient's satisfaction. Thanks once again. If we can be of further service to your patients with disorders of the spine, cervical, thoracic, or lumbar, please do not hesitate to contact Dr. Mancuso. Best regards, 1. 3 months s/p C5-7 ACDF Plan Of Treatment Pending Test Test Name Order Date Cervical spine 2 v - 41478 07/15/2024 Cervical spine 2 v - 31875 08/23/2024 Surgery Scheduling 04/24/2024 Future Test Test Name Order Date Chest 2 views - 07979 04/24/2024 CBC 04/24/2024 PT/PTT 04/24/2024 BMP 04/24/2024 MRSA (Bilateral Nares) PCR 04/24/2024 EKG 04/24/2024 Medical (General) History Medical History History ICD Code NKDA Surgical History Surgery Date(Month/Year) C5-7 ACDF 06/03/2024
--- NOTE | 2025-04-17 14:44 | XR_ITS ---
The [address] [address] Patient Name: SEVERINO GREER MRN: [id number] date: 1970 Sex: F Assigned Patient Location: [facility] Current Patient Location: Accession/Order Number: [id number] Exam Date: 04/17/2025 14:45 Report Date: 04/18/2025 07:50 At the request of: TRACIE MALONE MD Procedure: XR foot LT 2V LEFT FOOT - 2 views COMPARISON: 01/17/2023 CLINICAL DATA: Pain at the first metatarsal for the past couple weeks. No injury. AP and lateral views were obtained. The fracture at the neck of the fourth metatarsal on the prior is now fully healed. No acute fracture or dislocation is identified. There is minimal spurring at the head of the first metatarsal and adjacent sesamoids. No soft tissue abnormalities are seen. XR/XR foot LT 2V IMPRESSION: MINOR DEGENERATIVE CHANGE AT THE FIRST TOE. NO ACUTE BONY FINDINGS. Impression dictated by: Nubia Batista M.D. 04/18/2025 7:50 AM Dictation Location: [place] [address] Electronically authenticated by: [id number] Y Date: 04/18/2025 07:50
== END 2025-04-17 14:38 | disposition home or self-care (01) ==
PROVIDERS: PCP Family Medicine; Visit Provider Family Medicine
DX: M79.672 Pain in left foot (principal); M19.072 Primary osteoarthritis, left ankle and foot
CPT/HCPCS: 73620

== ENCOUNTER 2025-05-02 12:43 | Outpatient (OUT) | payer BC, SELFPAY ==
--- OUTSIDE RECORDS SUMMARY | 2024-07-12 04:50 | XMS_ITS ---
Author Organization [facility] Address [address] [place] [address] Care Team Providers Care Traffic Rate Computer Name Role Phone Octavio Mars Primary Care Provider Michael Santiago Unavailable [phone] REASON FOR VISIT C5-7 ACDF, 06/03/24, IOS Encounters Encounter Location Date Provider Diagnosis [facility] Office [address] [place] [address] [address] [place] [address] 07/12/2024 Michael Sprague Aftercare following surgery of the musculoskeletal system Z47.89 Assessments Encounter Date Diagnosis (ICD Code) Assessment Notes Treatment Notes Treatment Clinical Notes Section Notes 07/12/2024 Aftercare following surgery of the musculoskeletal system (ICD-10 - Z47.89) Plan Of Treatment Pending Test Test Name Order Date Cervical spine 2 v - 33555 07/12/2024 Progress Notes * SEVERINO GREER MDOB:1970 (54 yo F)Acc No.[id number]:07/12/2024 Progress Notes Patient: Yelitza SEVERINO ZARATE :?Michael Mancuso MD, PhDDOB:1970 ???Age:53 Y???Sex:FemaleDate:07/12/2024Phone:[phone]:KIRK RUCKER [place] [id number]:Octavio Mars Subjective: * Chief Complaints: * 1 . C5-7 ACDF, 06/03/24, IOS. * Medical History: Objective: * Vitals: Assessment: * Assessment: 1.?Aftercare following surgery of the musculoskeletal system - Z47.89 (Primary)?? Plan: * Treatment: ?Imaging: Cervical spine 2 v - 51205 Forms: * Images: * Electronic signature of Michael Sprague MD, PHD on 05/02/2025 at 12:48 PM EST Sign off status: Pending * Provider: Diana Mancuso MD, PhD Date: 0 07/12/2024 Generated for Printing/Faxing/eTransmitting on:?05/02/2025 12:48 PM EST
--- OUTSIDE RECORDS SUMMARY | 2024-07-26 05:40 | XMS_ITS ---
Author Organization [facility] Address [address] [place] [address] Care Team Providers Care Senior Corporate Recruiter Name Role Phone Octavio Mars Primary Care Provider Michael Santiago [phone] REASON FOR VISIT C5-7 ACDF, 06/03/24, IOS Encounters Encounter Location Date Provider Diagnosis [facility] [facility] [address] [place] [address] [place] [address] 07/26/2024 Michael Sprague Plan Of Treatment No Information Progress Notes * SEVERINO GREER MDOB:1970 (54 yo F)Acc No.[id number]:07/26/2024 Progress Notes Patient: Yelitza MCLEANSEVERINO Mabry :?Michael Mancuso MD, PhDDOB:1970 ???Age:53 Y???Sex:FemaleDate:07/26/2024Phone:[phone]:[address] [place], [place] [address], [place]-[id number]:Octavio Ellsworthmisty Subjective: * Chief Complaints: * 1 . C5-7 ACDF, 06/03/24, IOS. * Medical History: Objective: * Vitals: Assessment: Plan: * Treatment: Forms: * Images: * Electronic signature of Michael Sprague MD, PHD on 05/02/2025 at 12:49 PM EST Sign off status: Pending * Provider: Diana Mancuso MD, PhD Date: 0 07/26/2024 Generated for Printing/Faxing/eTransmitting on:?05/02/2025 12:49 PM EST
--- OUTSIDE RECORDS SUMMARY | 2024-11-22 03:50 | XMS_ITS ---
Author Organization [facility] Address [address] [place] [address] Care Team Providers Care Chainstitch Zipper Setter Name Role Phone Octavio Mars Primary Care Provider Michael Santiago Unavailable [phone] REASON FOR VISIT CERVICAL RECHECK Encounters Encounter Location Date Provider Diagnosis [facility] [address] [place] [address] [place] [address] 11/22/2024 Michael Sprague Plan Of Treatment No Information Progress Notes * SEVERINO GREER MDOB:1970 (54 yo F)Acc No.[id number]:11/22/2024 Progress Notes Patient: Yelitza SEVERINO ZARATE :?Michael Mancuso MD, PhDDOB:1970 ???Age:54 Y???Sex:FemaleDate:11/22/2024Phone:[phone]:[address] [facility]-[id number]:Octavio Mars Subjective: * Chief Complaints: * 1 . CERVICAL RECHECK. * Medical History: Objective: * Vitals: Assessment: Plan: * Treatment: Forms: * Images: * Electronic signature of Michael Sprague MD, PHD on 05/02/2025 at 12:49 PM EST Sign off status: Pending * Provider: Diana Mancuso MD, PhD Date: 0 11/22/2024 Generated for Printing/Faxing/eTransmitting on:?05/02/2025 12:49 PM EST
--- OUTSIDE RECORDS SUMMARY | 2025-04-29 04:30 | XMS_ITS ---
Author Organization [employer] [facility] [employer] [facility] Address [address] [address], [place] [address] Care Team Providers Care Buckram Sewer Name Role Phone Octavio Mars M.D. Primary Care Provider UnavailSanchez Rossi Unavailable [phone] Allergies No Known Allergies REASON FOR VISIT Left Foot Pain- Toe Medications Medication SIG (Take, Route, Frequency, Duration) Notes Start Date End Date Status Allopurinol 300 MG Tablet TAKE 1 TABLET BY MOUTH EVERY DAY FOR 30 DAYS Oral; Duration: 30 Days Active Social History Section Notes: No tobacco use. Daily alcohol use. Problems Problem Type SNOMED Code ICD Code Onset Dates Problem Status W/U Status Risk Notes Problem Acquired hallux rigidus (2306019) Hallux rigidus, right foot (M20.21) ActiveconfirmedProblemAcquired hallux rigidus (3444294)Hallux rigidus, left foot (M20.22)Activeconfirmed Encounters Encounter Location Date Provider Diagnosis [facility] [address] [facility] [address], [place] [address] 04/29/2025 Sanchez Ordaz Hallux rigidus, right foot M20.21 ; Gouty arthritis M10.9 and Hallux rigidus, left foot M20.22 Assessments Encounter Date Diagnosis (ICD Code) Assessment Notes Treatment Notes Treatment Clinical Notes Section Notes 04/29/2025 Hallux rigidus, right foot (ICD- 10 - M20.21) I discussed the pros & cons of continued nonoperative care vs surgical intervention. I ordered new right foot xrays as the right foot xrays are ~18 months old. those xryas obtained in December 2023 demonstrate end stage DJD in 1st MPJ with cystic changes. I recommended that she obtain the new xraysprior to scheduling surgery and if additional imaging is needed I would communicate that with her. Once xrays are obtained I will confirm that the following procedure(s) are indicated. Right 1st metatarsal-phalangeal joint fusion with bone graft as needed Specific complications that could potentially occur were discussed in detail which included wound/dehiscence, infection, pain, bleeding, numbness/tingling, DVT/PE, swelling and need for additional surgery. Additional complications discussed included nonunion, delayed union, malunion and painful hardware. 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 Orders for preoperative clearance and scheduling were placed. Anesthesia was discussed and all questions answered to satisfaction. 04/29/2025Gouty arthritis (ICD-10 - M10.9)04/29/2025Hallux rigidus, left foot (ICD-10 - M20.22)I reviewed her left foot xrays which demonstrate mild to moderate djd of first MPJ. No fracture or acute trauma. Her symptoms and history are consistent with acute gout attack on her left. She would be a good canidate for 1st mpj fusion on left however right effects her significantly more. Continuesystemic gout management per Dr Mars and once her right foot is healed she may consider 1st MPJ fusion on left. Plan Of Treatment Treatment Notes Assessment Notes Hallux rigidus, right foot I discussed the pros & cons of continued nonoperative care vs surgical intervention. I ordered new right foot xrays as the right foot xrays are ~18 months old. those xryas obtained in December 2023 demonstrate end stage DJD in 1st MPJ with cystic changes. I recommended that she obtain the new xrays prior to scheduling surgery and if additional imaging is needed I would communicate that with her. Once xrays are obtained I will confirm that the following procedure(s) are indicated. Right 1st metatarsal-phalangeal joint fusion with bone graft as needed Specific complications that could potentially occur were discussed in detail which included wound/dehiscence, infection, pain, bleeding, numbness/tingling, DVT/PE, swelling and need for additional surgery. Additional complications discussed included nonunion, delayed union, malunion and painful hardware. 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 Orders for preoperative clearance and scheduling were placed. Anesthesia was discussed and all questions answered to satisfaction. Hallux rigidus, left foot I reviewed her left foot xrays which demonstrate mild to moderate djd of first MPJ. No fracture or acute trauma. Her symptoms and history are consistent with acute gout attack on her left. She would be a good canidate for 1st mpj fusion on left however right effects her significantly more. Continue systemic gout management per Dr Mars and once her right foot is healed she may consider 1st MPJ fusion on left. Next Appt Details Follow Up: 1 week post op, Marlon moise: History and Physical Notes * HPI (History of Present Illness) CategorySub-CategoryDetailNotesCategory NotesFootPatient is a 54F with history of gout who was last seen December 2023 for right hallux rigidus. She wasseen a couple weeks ago by Dr. Mars for a gout flare on her left foot which subsided after a week with prednisone. She relates her left foot pain has greatly improved however her right foot yields daily pain which affects ADLs and recreational activities. she is considering surgical intervention Examination CategorySub-CategoryDetailNotesCategory NotesGeneral Examination Derm: Skin intact. No SOI Vasc: Pedal pulses palpable. Mild swelling to medial forefoot at 1st MPJ. Neuro: light touch sensation intact to dorsal and plantar foot. Negative tinel's sign. MSK: POP to the 1st MPJ which is also painful with ROM right more than left. ROM is limited and crepitus is noted also right more than left. Palpable periarticular osteophytes. Progress Notes * Kate BACONOB:1970 ( 54 yo F)Acc No.[id number]:04/29/2025 New Patient Patient: Yelitza browne Nathalie :?WILDER SilvaOB:1970???Age:54 Y ???Sex:FemaleDate:04/29/2025Phone:Address:[address] [place] [address] [id number]:Octavio Mars M.D. Subjective: * Chief Complaints: * L eft Foot Pain- Toe * HPI: ???Foot:?Patient is a 54F with history of gout who was last seen December 2023 for right hallux rigidus. She wasseen a couple weeks ago by Dr. Mars for a gout flare on her left foot which subsided after a week with prednisone. She relates her left foot pain has greatly improved however her right foot yields daily pain which affects ADLs and recreational activities. she is considering surgical intervention. * Medical History: Arthritis Gout Medical History Verified * Surgical History: C-4 to 6 2023? Surgical History verified.? * Family History: F ather: alive, diagnosed with Other malignant neoplasm without specification of site. M other: , diagnosed with Other malignant neoplasm without specification of site. B rother: alive, diagnosed with Other malignant neoplasm without specification of site. 2 son(s) , 2 daughter(s) . . F amily History Verified.. * Social History: Social History Verified. ???No tobacco use. Daily alcohol use. * Medications: T akingAllopurinol 300 MG Tablet TAKE 1 TABLET BY MOUTH EVERY DAY FOR 30 DAYS Oral Medication List reviewed and reconciled with the patientTaking Allopurinol 300 MG Tablet TAKE 1 TABLET BY MOUTH EVERY DAY FOR 30 DAYS Oral Medication List reviewed and reconciled with the patient * Allergies: N .K.D.A.yesAllergies Verified. Objective: * Examination: ???General Examination: ???Derm: Skin intact. No SOI Vasc: Pedal pulses palpable. Mild swelling to medial forefoot at 1st MPJ. Neuro: light touch sensation intact to dorsal and plantar foot. Negative tinel's sign. MSK: POP to the 1st MPJ which is also painful with ROM right more than left. ROM is limited and crepitus is noted also right more than left. Palpable periarticular osteophytes. Assessment: * Assessment: 1.?Hallux rigidus, right foot - M20.21 (Primary)???2.?Gouty arthritis - M10 .9???3.?Hallux rigidus, left foot - M20.22??? Plan: * Treatment: Notes: I discussed the pros & cons of continued nonoperative care vs surgical intervention. I ordered new right foot xrays as the right foot xrays are ~18 months old. those xryas obtained in December2023 demonstrate end stage DJD in 1st MPJ with cystic changes. I recommended that she obtain the new xrays prior to scheduling surgery and if additional imaging is needed I would communicate that with her. Once xrays are obtained I will confirm that the following procedure(s) are indicated.? Right 1st metatarsal-phalangeal joint fusion with bone graft as needed Specific complications that could potentially occur were discussed in detail which included wound/dehiscence, infection, pain, bleeding, numbness/tingling, DVT/PE, swelling and need for additional surgery. Additional complications discussed included nonunion, delayed union, malunion and painful hardware. 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 Orders for preoperative clearance and scheduling were placed. Anesthesia was discussed and all questions answered to satisfaction.???2.?Hallux rigidus, left foot? Notes: I reviewed her left foot xrays which demonstrate mild to moderate djd of first MPJ. No fracture or acute trauma. Her symptoms and history are consistent with acute gout attack on her left. Shewould be a good canidate for 1st mpj fusion on left however right effects her significantly more. Continue systemic gout management per Dr Mars and once her right foot is healed she may consider 1st MPJ fusion on left.?? * Follow Up: 1 week post op Billing Information: * Visit Code: 58262 Office Visit, Est Pt., Level 4. * Procedure Codes: * Sign off status: Completed true * Provider: Dex Ordaz DPM Date: 06/29/2024 Generated for Printing/Faxing/eTransmitting on:?05/02/2025 12:49 PM EST
--- OUTSIDE RECORDS SUMMARY | 2025-05-02 12:48 | XMS_ITS | CCD ---
Author Organization [facility] Care Team Providers Care Shape Hand Name Role Phone DR TRACIE MARS Attending [...] ActivemethylPREDNISolone 4 mg oral tablet (1 source)CorticosteroidStart: 15-08-1014esvkddPKHIZXCecvfc 4 MG as directed Orally Jan, Active Completed/Discontinued Medications MedicationDrug Class(es)DatesSig (Normalized)Sig (Original)amoxicillin 875 mg / clavulanate 125 mg oral tablet (1 source)Penicillin-class AntibacterialStart: 37-33-8341eted 1 tablet by mouth every twelve hoursAmoxicillin-Pot Clavulanate 875-125 MG 1 tablet Orally every 12 hrs for 10 day(s) Sep, Not-Takingfluticasone propionate 0.05 mg/actuat metered dose nasal spray (1 source)CorticosteroidStart: 58-71-8888brry 2 spray(s) nasal route once daily Fluticasone Propionate 50 MCG/ACT 2 sprays Nasally Once a day for 14 day(s) Sep, Not-TakingpredniSONE 20 mg oral tablet (1 source)Start: 45-01-2416jhus 1 tablet by mouth every twelve hourspredniSONE 20 MG 1 tablet Orally bid for 5 day(s) Sep, Not-Taking Problems Problem ClassificationProblemDateDocumented DateEpisodic/ChronicConditions associated with dizziness or vertigo (4 sources)Other peripheral vertigo, unspecified ear; Translations: [OTHER PERIPHERAL VERTIGO UNS EAR]Onset: 42-26-9009PzinphaxMqjokkmqss and other anemia (1 source)Anemia, unspecified; Translations: [ANEMIA UNSPECIFIED]Onset: 34-65-9720HtwvfopyNrzphqob mellitus without complication (1 source)Other abnormal glucose; Translations: [OTHER ABNORMAL GLUCOSE]Onset: 28-58-3825TlbosbdsCavar connective tissue disease (1 source)Pain in left footEpisodicSyncope (1 source)Syncope and collapse; Translations: [SYNCOPE AND COLLAPSE]Onset: 82-16-5188Qedjfwcb Results Test NameValueInterpretationReference RangeFacilityINSULINon 62-14-9055Ifhxysu 22.5 uIU/mLNormal2.6-24.9The [facility] CenterComment on above:Performed By: #### INSULIN #### [facility] [address] [place] [address] Dr. Tessa Jackson4, T3U, FTI LABCORPon 79-74-1495Utsq Thyroxine Index1.5Normal 1.2-4.9The [facility] CenterComment on above:Performed By: #### THYLC #### [facility] [address] [place] [address] Dr. Tessa JackosnT3 Lvjopb82 %Jqwzdj34-50Uhv [facility] CenterComment on above: Performed By: #### THYLC #### [facility] [address] [place] [address] Dr. Tessa Chance [Mass/Vol]5.7 ug/dLNormal4.5-12.0The [facility] CenterComment on above:Performed By: #### THYLC #### [facility] [address] [place] [address] Dr. Tessa Woodall AUTO DIFFon 61-17-7180VHRG #0.0 103/ulNormal0.0-0.1The [facility] CenterComment on above:Performed By: #### CBC #### [facility] [address] [place] [address] Dr. Tessa JacksonBasophils/100 WBC (Bld)0.1 %Critically low0.2-2.0The [facility] Hospitalment on above:Performed By: #### CBC #### [facility] [address] [place] [address] Dr. Tessa Overton #0.0 103/ulNormal0.0-0.7The [facility] CenterComment on above: Performed By: #### CBC #### [facility] [address] [place] [address] Dr. Tessa Bairdosinophils/100 WBC (Bld)0.0 %Critically low0.9-7.0The [facility] Hospitalment on above:Performed By: #### CBC #### [facility] [address] [place] [address] Dr. Tessa Bairdrythrocyte distribution width (RBC) [Ratio]13.1 %Bpsqvf10.0-15.0 The [facility] CenterComment on above:Performed By: #### CBC #### [facility] [address] [place] [address] Dr. Tessa JacksonHematocrit (Bld) [Volume fraction]40.7 %Srpyhr52.0-48.0The [facility] on above:Performed By: #### CBC #### [facility] [address] [place] [address] Dr. Tessa JacksonHemoglobin (Bld) [Mass/Vol]13.5 g/dOTpugig53.0-16.0The [facility] Hospitalment on above:Performed By: #### CBC #### [facility] [address] [place] [address] Dr. Tessa Gilliland #0.03 10e3/ulNormal0.00-0.03The [facility] CenterComment on above:Performed By: #### CBC #### [facility] [address] [place] [address] Dr. Tessa Gilliland %0.4 %Normal0.0-0.5The [facility] CenterComment on above: Performed By: #### CBC #### [facility] [address] [address] [address] Tessa Kent #1.0 103/ulCritically low1.2-3.8The [facility] Comment on above:Performed By: #### CBC #### [facility] [address] [address] [address] Tessa Rodriguezmphocytes/100 WBC (Bld)14.4 %Critically low20.5-60.0The [facility] CenterComment on above:Performed By: #### CBC #### [facility] [address] [address] [address] Tessa Bhandari DIFF REQNONormalThe [facility] CenterComment on above: Performed By: #### CBC #### [facility] [address] [place] [address] Dr. Tessa Waterman (RBC) [Entitic mass]30.8 oyTtrujy08.7-34.0The [facility] CenterComment on above:Performed By: #### CBC #### [facility] [address] [place] [address] Dr. Tessa Waterman (RBC) [Mass/Vol]33.2 g/lLKffzng31.9-35.2The [facility] CenterComment on above:Performed By: #### CBC #### [facility] [address] [place] [address] Dr. Tessa Waterman (RBC) [Entitic vol]92.7 sNOrgqqt26.0-99.0The [facility] CenterComment on above:Performed By: #### CBC #### [facility] [address] [address] [address] Tessa Padilla #0.4 103/ulNormal0.3-0.8The [facility] CenterComment on above:Performed By: #### CBC #### [facility] [address] [place] [address] Dr. Tessa Gonzalezocytes/100 WBC (Bld)5.6 %Normal1.7-12.0[facility] Comment on above:Performed By: #### CBC #### [facility] [address] [address] [address] Tessa KhanUT #5.6 103/ulNormal1.4-6.5The [facility] CenterComment on above:Performed By: #### CBC #### [facility] [address] [address] [address] Tessa Khanutrophils/100 WBC (Bld)79.5 %Critically high43.0-75.0The [facility] CenterComment on above:Performed By: #### CBC #### [facility] [address] [place] [address] Dr. Tessa JacksonPlatelet mean volume (Bld) [Entitic vol]9.6 fLNormal9.5-13.5The [facility] on above:Performed By: #### CBC #### [facility] [address] [place] [address] Dr. Tessa JakcsonPLT298 103/buBzcrup484-108Stk [facility] CenterComasc[facility] on above: Performed By: #### CBC #### [facility] [address] [place] [address] Dr. Tessa JacksonRBC4.39 106/ulNormal4.20-5.40The [facility] on above:Performed By: #### CBC #### [facility] [address] [place] [address] Dr. Tessa JacksonWBC7.1 103/ulNormal4.0-11.0The [facility] on above: Performed By: #### CBC #### [facility] [address] [place] [address] Dr. Tessa JacksonCRYanick 38-67-1995SUW [Mass/Vol]mg/LNormal<=1.0The [facility] on above:Performed By: #### CMP, CRP, LIPID, TSH #### [facility] [address] [place] [address] Dr. Tessa JacksonGLYCOHEMOGLOBIN A1Con 61-28-5301WEE RECOMMENDATIONSEE BELOWNormal The [facility] CenterComasc[facility] on above:Result Comment: ADA RECOMMENDED LIMIT 4.0 - 6.0 ADA THERAPEUTIC TARGET < 7.0 ACTION SUGGESTED > 7.0Performed By: #### A1C #### [facility] [address] [place] [address] Dr. Tessa JacksonGlucose [Mass/Vol]126 mg/dLKettering Health PrebleComascension standish hospital on above:Performed By: #### A1C #### [facility] [address] [place] [address] Dr. Tessa JacksonHbA1c (Bld) [Mass fraction]6.0 %Normal4.5-6.2The [facility] on above:Performed By: #### A1C #### [facility] [address] [place] [address] Dr. Tessa Martinez 40-96-1905Tsdj [Mass/Vol]92.0 ug/yKHsqfrn65.0-170.0The [facility] on above:Performed By: #### IRON #### [facility] [address] [place] [address] Dr. Tessa GarzonID PROFILEon 88-46-1864CJHL-HDL RATIO NORMSEE BELOWKettering Health PrebleComascension standish hospital on above:Result Comment: 3.3 - 4.4 LOW RISK 4.4 - 7.1 AVERAGE RISK 7.1 - 11.0 MODERATE RISK >11.0 HIGH RISKPerformed By: #### CMP, CRP, LIPID, TSH #### [facility] [address] [place] [address] Dr. Tessa JacksonCholesterol [Mass/Vol]385 mg/dLCritically high<=200The [facility] on above:Performed By: #### CMP, CRP, LIPID, TSH #### [facility] [address] [place] [address] Dr. Tessa Sheridanesterol in HDL [Mass/Vol]136 mg/dLCritically fvew36-29Nuy [facility] on above:Performed By: #### CMP, CRP, LIPID, TSH #### [facility] [address] [place] [address] Dr. Tessa Sheridanesterol in LDL [Mass/Vol]226.6 mg/dLKettering Health PrebleComment on above:Performed By: #### CMP, CRP, LIPID, TSH #### [facility] [address] [place] [address] Dr. Tessa Dueñas.total/Cholesterol in HDL [Mass ratio]2.8 {ratio} NormalThe [facility] CenterComment on above:Performed By: #### CMP, CRP, LIPID, TSH #### [facility] [address] [place] [address] Dr. Tessa Ahmadi NORMAL> or = 60 mg/dl - LOW CARDIOVASCULAR RISK <40 mg/dl - HIGH CARDIOVASCULAR RISKKettering Health PrebleComment on above:Performed By: #### CMP, CRP, LIPID, TSH #### [facility] [address] [place] [address] Dr. Tessa Scott CALC NORMALSEE BELOWNoZanesville City HospitalComment on above:Result Comment: <100 mg/dl OPTIMAL 100 - 129 mg/dl NEAR OR ABOVE OPTIMAL 130 - 159 mg/dl BORDERLINE HIGH 160 - 189 mg/dl HIGH >190 mg/dl VERY HIGH Performed By: #### CMP, CRP, LIPID, TSH #### [facility] [address] [place] [address] Dr. Tessa JacksonTriglyceride [Mass/Vol]112 mg/dLNormal<=150The [facility] Comment on above:Performed By: #### CMP, CRP, LIPID, TSH #### [facility] [address] [place] [address] Dr. Tessa RicheyLDL CALC22.4 mg/dLNoZanesville City HospitalComment on above: Performed By: #### CMP, CRP, LIPID, TSH #### [facility] [address] [place] [address] Dr. Tessa Elizondo 14(COMP METB)on 88-55-5712Stbfvpi [Mass/Vol]4.0 g/dLNormal 3.4-5.0The [facility] CenterComment on above:Performed By: #### CMP, CRP, LIPID, TSH #### [facility] [address] [address] [address] Tessa JacksonAlbumin/Globulin [Mass ratio]1.0 {ratio}NormalThe [facility] Hospitalment on above:Performed By: #### CMP, CRP, LIPID, TSH #### [facility] [address] [address] [address] Tessa AndrewsP [Catalytic activity/Vol]139 U/LCritically yrcd02-451Xmt [facility] CenterComment on above:Performed By: #### CMP, CRP, LIPID, TSH #### [facility] [address] [address] [address] Tessa AndrewsT [Catalytic activity/Vol]86 U/LCritically lioj92-60Qbz [facility] CenterComment on above:Performed By: #### CMP, CRP, LIPID, TSH #### [facility] [address] [place] [address] Dr. Tessa Willetton gap [Moles/Vol]14.8 mmol/LNormalThe [facility] Comment on above:Performed By: #### CMP, CRP, LIPID, TSH #### [facility] [address] [place] [address] Dr. Tessa JacksonAST [Catalytic activity/Vol]23 U/NVlrdkv05-44Ugo [facility] on above:Performed By: #### CMP, CRP, LIPID, TSH #### [facility] [address] [place] [address] Dr. Tessa JacksonBilirubin [Mass/Vol]0.4 mg/dLNormal0.2-1.0The [facility] Comment on above:Performed By: #### CMP, CRP, LIPID, TSH #### [facility] [address] [place] [address] Dr. Tessa JacksonCalcium [Mass/Vol]10.0 mg/dLNormal8.5-10.1[facility] Comment on above:Performed By: #### CMP, CRP, LIPID, TSH #### [facility] [address] [place] [address] Dr. Tessa JacksonChloride [Moles/Vol]100 mmol/WSzelfj19-692Ben [facility] Comment on above:Performed By: #### CMP, CRP, LIPID, TSH #### [facility] [address] [address] [address] Tessa JacksonCO2 [Moles/Vol]28.0 mmol/ZMgmier54.0-32.0The [facility] Comment on above:Performed By: #### CMP, CRP, LIPID, TSH #### [facility] [address] [address] [address] Tessa JacksonCreatinine [Mass/Vol]0.95 mg/dLNormal0.55-1.02The [facility] CenterComment on above:Performed By: #### CMP, CRP, LIPID, TSH #### [facility] [address] [address] [address] Tessa BairdGFR-AF RUSSIAN>60Normal>=60The [facility] CenterComment on above:Performed By: #### CMP, CRP, LIPID, TSH #### [facility] [address] [place] [address] Dr. Tessa BairdGFR-NON AF RUSSIAN>60Normal>=60The [facility] CenterComment on above:Performed By: #### CMP, CRP, LIPID, TSH #### [facility] [address] [place] [address] Dr. Tessa JacksonGlobulin (S) [Mass/Vol]3.9 g/dLNormalThe [facility] CenterComment on above:Performed By: #### CMP, CRP, LIPID, TSH #### [facility] [address] [place] [address] Dr. Tessa JacksonGlucose [Mass/Vol]127 mg/dLCritically wxdc63-958Gya [facility] CenterComment on above:Performed By: #### CMP, CRP, LIPID, TSH #### [facility] [address] [place] [address] Dr. Tessa JacksonPotassium [Moles/Vol]4.8 mmol/LNormal3.5-5.1The [facility] Comment on above:Performed By: #### CMP, CRP, LIPID, TSH #### [facility] [address] [address] [address] Tessa JacksonProtein [Mass/Vol]7.9 g/dLNormal6.4-8.2The [facility] Comment on above:Performed By: #### CMP, CRP, LIPID, TSH #### [facility] [address] [address] [address] Tessa JacksonSodium [Moles/Vol]138 mmol/EIshpne840-905Rqd [facility] Comment on above:Performed By: #### CMP, CRP, LIPID, TSH #### [facility] [address] [place] [address] Dr. Tessa JacksonUrea nitrogen [Mass/Vol]14.0 mg/dLNormal7.0-18.0The [facility] CenterComment on above:Performed By: #### CMP, CRP, LIPID, TSH #### [facility] [address] [place] [address] Dr. Tessa Terrazas nitrogen/Creatinine [Mass ratio]14.7 mg/mgNormalThe [facility] CenterComment on above:Performed By: #### CMP, CRP, LIPID, TSH #### [facility] [address] [place] [address] Dr. Tessa Thompson RATE CASSADAGAERGRENon 96-77-9780JJM RATE28 mm/hrNormal<=30The [facility] CenterComment on above:Performed By: #### SEDR #### [facility] [address] [place] [address] Dr. Tessa Taylor 70-34-5172DVC7.639 uIU/mLNormal0.358-3.740The [facility] CenterComment on above:Performed By: #### CMP, CRP, LIPID, TSH #### [facility] [address] [place] [address] Dr. Tessa JacksonCoding Summary.on 12-21-7452Iqsnkn Summary.CODING DATE: 04/10/2019 [facility] STATUS: Home (Routine DC) PAYOR: [facility] [place] ADMIT DX: REASON FOR VISIT DX: M54.2 [...] Zena Garcia CphTdy Date Saved: 04/10/2019 07:12 [place]ervilleConsultation Noteon 97-29-5237Tmktaqkpczjm NoteHOSPITAL REGULATIONS: ALL Positive Important Negative Findings [...] concerns. Chauncey Alicea M.D. gls Dictated: 04/02/2019 #[id number] Typed: 04/08/2019 #[id number] cc: Chauncey Alicea M.D. Tracie Mars M.D.[facility] HospitalComment on above:Result Comment: Electronically Signed By: Deanne QUINTERO, Chauncey Moncada\.br\Date and Time Signed: 04/10/19 09:50 ESTCoding Summary.on 26-06-2093Nehilp Summary.CODING DATE: 03/20/2019 FINAL [facility] STATUS: Home (Routine DC) PAYOR: [facility] [place] ADMIT DX: REASON FOR VISIT DX: M50.10 [...] By: Charlotte Verduzco Date Saved: 03/20/2019 03:38 [facility], IncCoding Summary. on 69-35-1451Tdveeh Summary.CODING DATE: 03/19/2019 FINAL [facility] STATUS: Home (Routine DC) PAYOR: [facility] [place] APC DESCRIPTION 5442 Level 2 Nerve Injections [...] By: Joan Trujillo Date Saved: 03/19/2019 08:43 [place]ervilleConsultation Noteon 84-07-3615Bgfrswdkukmn NoteHOSPITAL REGULATIONS: ALL Positive Important Negative Findings [...] response. Chauncey Alicea M.D. gls Dictated: 03/11/2019 #[id number] Typed: 03/13/2019 #[id number] cc: Jaden Fritz M.D.[facility] HospitalComment on above:Result Comment: Electronically Signed By: Chauncey Alicea MD\.br\Date and Time Signed: 03/19/19 08:22 EDTMain OR Intraoperative Recordon 13-24-5236Xvsm OR Intraoperative RecordIntraOp Document Type FTPM Summary Primary Physician: Chauncey Alicea MD Finalized Date/Time: 03/18/19 08:19:23 Pt. Name: SEVERINO GREER Trang MurilloB./Sex: 1970 Female Med Rec #: [id number] Physician: Chauncey Alicea MD Financial #: [id number] Pt. Type: P Room/Bed: / Admit/Disch: 03/18/19 [...] Role Performed Anesthesiologist of Surgeon - Primary Clinic Clerk - Primary Record Time In 03/18/19 08:12:00 [...] Performed Scrub - Primary Scrub - Other Fruit Packer Face And Fill Time In 03/18/19 08:12:00 03/18/19 08:12:00 03/18/19 [...] Yes Primary Surgeon Chauncey Alicea MD Start 03/18/19 08:16:00 Stop 03/18/19 [...] and tissue Entry 1 Skin Integrity Intact, [place], Warm, and Skin Abnormality No Dry Outcomes [...] Signatures Signed By: Zhang Carrion RN 03/18/19 08:19NoOhio State Hard[facility] HospitalMain OR Preoperative Recordon 56-51-7187Jyyb OR Preoperative RecordHolding Area Document Type FTPM Summary Primary Physician: Chauncey Alicea MD Finalized Date/Time: 03/18/19 07:50:56 Pt. Name: SEVERINO GREER Trang MurilloB./Sex: 1970 Female Med Rec #: [id number] Physician: Chauncey Alicea MD Financial #: [id number] Pt. Type: P Room/Bed: / Admit/Disch: 03/18/19 [...] Signatures Signed By: Liseth Delacruz RN 03/18/19 07:50NoOhio State Harding HospitalOperative Report on 31-53-7876Oogrryuid ReportPatient: SEVERINO GREER Age: 48 years Sex: [...] resistance technique with a plastic JO syringe. Wnmrza2kM was injected under live fluoroscopy which demonstrated [...] Pressure, Monitered 113 mmHg SpO2 99 % .[facility] HospitalComment on above:Result Comment: Electronically Signed By: Chauncey Alicea MD\.br\Date and Time Signed: 03/18/19 08:20 EDTCoding Summary.on 55-36-8434Jofpid Summary.CODING DATE: 02/28/2019 FINAL [facility] STATUS: Home (Routine DC) PAYOR: [facility] [place] APC DESCRIPTION 5442 Level 2 Nerve Injections [...] By: Charlotte Verduzco Date Saved: 02/28/2019 10:26 [place] Intraoperative Recordon 93-86-6266Gnqd OR Intraoperative RecordIntraOp Document Type FTPM Summary Primary Physician: Chauncey Alicea MD Finalized Date/Time: 02/26/19 08:23:08 Pt. Name: SEVERINO GREER./Sex: 1970 Female Med Rec #: [id number] Physician: Chauncey Alicea MD Financial #: [id number] Pt. Type: P Room/Bed: / Admit/Disch: 02/26/19 [...] Role Performed Surgeon - Primary Anesthesiologist of Clinic Clerk - Primary Record Time In 02/26/19 08:17:00 [...] Performed Scrub - Other Scrub - Primary Fruit Packer Face And Fill Time In 02/26/19 08:17:00 02/26/19 08:17:00 02/26/19 [...] X-ray Applicable) PreOp Antibiotic No Time Out Ellis Falk JR, DO, Myers RN, Kendall Mcclure [...] and tissue Entry 1 Skin Integrity Intact, [place], Warm, and Skin Abnormality No Dry Outcomes [...] Signatures Signed By: Trinidad Vega RN 02/26/19 08:23[facility] HospitalMain OR Preoperative Recordon 43-82-4157Rkot OR Preoperative RecordHolding Area Document Type FTPM Summary Primary Physician: Chauncey Alicea MD Finalized Date/Time: 02/26/19 07:44:06 Pt. Name: SEVERINO GREER Trang Rees/Sex: 1970 Female Med Rec #: [id number] Physician: Chauncey Alicea MD Financial #: [id number] Pt. Type: P Room/Bed: / Admit/Disch: 02/26/19 [...] Signatures Signed By: Malorie Tolbert RN 02/26/19 07:44NoOhio State Harding HospitalOperative Reporton 94-11-2313Peslajltt ReportPatient: SEVERINO GREER Age: 48 years Sex: [...] resistance technique with a plastic JO syringe. [id number] was injected under live fluoroscopy which demonstrated [...] good condition with post-procedure instructions. No apparent complications.[facility] HospitalComment on above: Result Comment: Electronically Signed By: Deanne QUINTERO, Chauncey Lemus.aston\Date and Time Signed: 02/26/19 08:22 EDTProgress Note-Physicianon 56-33-5766Fyikyucy Note-PhysicianPatient: SEVERINO GREER Age: 48 years Sex: [...] Acute carpal tunnel syndrome / SNOMED CT [id number] / Confirmed, Active Problems (1) Acute carpal tunnel syndrome Histories Past Medical History: No active or resolved past medical history items have been selected or recorded. Family History: No family history items have been selected or recorded. Procedure history: Carpal tunnel release ([id number]). Comments: 01/15/2019 10:32 - Day Colleen WEAVER [...] tobacco products, and offered counseling if pt desires..[facility] HospitalComment on above:Result Comment: Electronically Signed By: Ellis Falk JR, DO.br\Date and Time Signed: 02/26/19 08:34 EDTCoding Summary.on 74-02-8603Zzvrqt Summary.CODING DATE: 02/13/2019 FINAL [facility] STATUS: Home (Routine DC) PAYOR: [facility] [place] ADMIT DX: REASON FOR VISIT DX: M54.2 Cervicalgia M79.603 Pain in arm, unspecified FINAL DX: PRINCIPAL: M54.12 Radiculopathy, cervical region SECONDARY: M50.20 Other cervical disc displacement, unspecified cervical region Z79.899 Other calibration checker (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 However, the narrative phrase printed from the coding software may appear abbreviated, or result in slightly different terminology. Coded By: Denise Garcia CphT Date Saved: 02/13/2019 07:11 [place]ervilleConsultation Noteon 55-33-8703Phvfxphhtvtx NoteHOSPITAL REGULATIONS: ALL Positive Important Negative Findings [...] her pain as well. Treatments have included animal care giver with Dr. Mars with minimal relief, and [...] not responded to appropriate conservative care including animal care giver and regular use of non-steroidal anti-inflammatory medications. [...] meanwhile. Chauncey Alicea M.D. aek Dictated: 02/05/2019 #[id number] Typed: 02/08/2019 #[id number] cc: Jaden Fritz M.D. Timothy A Moore, MDSt. Anthony's HospitalComment on above:Result Comment: Electronically Signed By: Deanne QUINTERO, Chauncey Moncada\.br\Date and Time Signed: 02/11/19 09:25 EDTConsultation Noteon 13-28-3243Otizfbrvpfio Note HOSPITAL REGULATIONS: ALL Positive Important Negative Findings Shall Be Recorded. Date of 01/15/2019 Consultation: Attending Tracie Mars M.D. Physician: Consulting Doyle Bustos MD Physician: CHIEF COMPLAINT: Neck, right arm misery. HISTORY OF PRESENT ILLNESS: A 48 year old female left-hand dominant. 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 [...] options. Doyle Bustos MD lkr Dictated: 01/15/2019 #[id number] Typed: 01/17/2019 #[id number] cc: Jaden Yeager MDSt. Anthony's HospitalComment on above:Result Comment: Electronically Signed By: Doyle Bustos MD\.br\Date and Time Signed: 01/25/19 16:46 EDTCoding Summary.on 02-41-8300Acuuwv Summary.CODING DATE: 01/18/2019 FINAL [facility] STATUS: Home (Routine DC) PAYOR: [facility] [place] ADMIT DX: REASON FOR VISIT DX: M54.2 [...] Denise Garcia CphT Date Saved: 01/18/2019 09:40 [place] Vital Signs Date TimeVital SignValuePerforming LgbflwzefDftxbgbn21-69-7190 10:10-0400Body urngji428.64 cmCmarilee Eaton Other [employer] Other 08-16-2023 10:10-0400Body mass index (BMI) [Ratio] 26.31 kg/q9BpqbcoLili Eaton Other [employer] Other 08-16-2023 10:10-0400Body .94 kgLili Eaton Other [employer] Other 08-16-2023 10:10-0400Diastolic blood vgwyxhoj37 mm[Hg] Lili Eaton Other [employer] Other 08-16-2023 10:10-0400Respiratory rate18 /minLili Eaton Other [employer] Other 08-16-2023 10:10-6093TbS3% (BldA) [Mass fraction]100 % Lili Eaton Other [employer] Other 08-16-2023 10:10-0400Systolic blood mm[Hg] Lili Eaton Other [employer] Other Encounters Encounter DateEncounter TypeCare ProviderFacilityStart: 01-18-2023 End: 71-97-1429ffyysgxoobJkrijt Lewis Other [employer] Other Start: 06-32-5818Batkbm outpatient visit 15 minutes [facility] ClydeStart: 02-03-2022 End: 12-49-5058iqeqenmbxhDW TRACIE HOYFacility:H1 Procedures DateProcedureProcedure DetailPerforming ClinicianStart: 39-34-9316Jkayfitypq consultationStart: 31-67-1812Wdokpbyvsk consultation Payers DatePayer CategoryPayerPolicy [id number] Cross Zachery [id number] Social History DateTypeDetailFacilitySex Assigned At [facility] [employer] Other Evaluation note 01-18-2023 Note Date & GvkaWrxdWnlabeys53-02-9348 Evaluation note* Encounter Date Diagnosis Assessment Notes [...] sx. Pt understood and agreed to txplan. [employer] Other Summary Purpose Family History No Family [...] Acute carpal tunnel syndrome / SNOMED CT 03718454 / Confirmed Physical Examination Intake and Output Pt. denies significant n/v, and is tolerating p.o. Vital Signs (last 24 hrs) Last Charted Temp Oral 36.5 DegC (FEB 26 08:27) (more content not included)... Additional Source Comments INFORMATION SOURCE (unrecogn ized section and content) DATE CREATED AUTHOR 04/10/2019 [facility] DATE CREATED AUTHOR AUTHOR'S ORGANIZ ATION 02/04/2022 [facility] REASON FOR VISIT (unrecogniz ed section and [...] BE BASED ON THE PRIMARY CLINICAL RECORDS. [employer] provides no warranty or guarantee of the accuracy or completeness of information in this document.
--- NOTE | 2025-05-02 12:49 | XR_ITS ---
[place] [id number] Patient Name: SEVERINO GREER MRN: [id number] date: 1970 Sex: F Assigned Patient Location: [facility] Current Patient Location: [facility] Accession/Order Number: [id number] Exam Date: 05/02/2025 13:00 Report Date: 05/02/2025 13:43 At the request of: EUN DONOVAN DPTrang Procedure: XR foot RT min 3V RIGHT FOOT - 3 views CLINICAL HISTORY: Hallux Rigidus COMPARISON: Right foot 12/27/2023 FINDINGS: No focal soft tissue abnormality. No acute bony process is seen. Both are grossly demineralized. Moderate degenerative changes of the first MTP joint without bony erosions. XR/XR foot RT min 3V IMPRESSION: MODERATE DEGENERATIVE CHANGES INVOLVING THE FIRST MTP JOINT WITHOUT BONY EROSIONS. Impression dictated by: Kt Obrien Jr., D.O. 05/02/2025 1:43 PM Dictation Location: [place] [address] Electronically authenticated by: [id number] Y Date: 05/02/2025 13:43
--- OUTSIDE RECORDS SUMMARY | 2025-05-02 12:49 | XMS_ITS | Patient Health Record ---
Author Organization [facility] in [place] Address [address] [place] [address] Care Team Providers Care Deskidding Machine Operator Name Role Phone Dusty Mars Primary Care Provider [phone] Natividad Bowser Unavailable [phone] Allergies No Known Allergies Results Component Value Reference Range Notes XR FOOT LT 2V Reviewed date:04/19/2025 12:56:58 PM Interpretation: Performing Lab: Notes/Report: Source Facility: [place] [address] XRay Report Signed Patient: SEVERINO GREER MR#: [id number] : 1970 Acct:[id number] Age/Sex: 54 / F ADM Date: 04/17/25 Loc: RAD Attending Dr: Tracie Mars M.D. Ordering Physician: Tracie Mars M.D. Date of Service: 04/17/25 Procedure(s): XR foot LT 2V Accession Number(s): [id number] cc: Tracie Mars M.D. [address] [address] Patient Name: SEVERINO GREER MRN: [id number] date: 1970 Sex: F Assigned Patient Location: RAD Current Patient Location: Accession/Order Number: [id number] Exam Date: 04/17/2025 14:45 Report Date: 04/18/2025 07:50 At the request of: TRACIE MARS MD Procedure: XR foot LT 2V LEFT FOOT - 2 views COMPARISON: 01/17/2023 CLINICAL DATA: Pain at the first metatarsal for the past couple weeks. No injury. AP and lateral views were obtained. The fracture at the neck of the fourth metatarsal on the prior is now fully healed. No acute fracture or dislocation is identified. There is minimal spurring at the head of the first metatarsal and adjacent sesamoids. No soft tissue abnormalities are seen. XR/XR foot LT 2V IMPRESSION: MINOR DEGENERATIVE CHANGE AT THE FIRST TOE. NO ACUTE BONY FINDINGS. Impression dictated by: Nubia Batista M.D. 04/18/2025 7:50 AM Dictation Location: [place] [address] Electronically authenticated by: [id number] Y Date: 04/18/2025 07:50 Dictated By: Nubia Batista M.D. Signed By: 04/18/25 0753 DD/ 0750 TD/TT: [facility] Paramedic: MRSA Screening Culture Reviewed date:05/15/2024 07:31:13 PM Interpretation: Performing Lab: Notes/Report: [facility] , MRSA Screening Culture See Below For Report MRSA Screening CultureMRSA Screening CultureNegativeMRSA Screening CultureMRSA Screening CulturePerformed at: CB - [facility] [place]MRSA Screening CultureMRSA Screening [address] [place], [place] [id number] Screening Culture MRSA Screening CultureLab Director: Coy Jurado PhD, Phone: [phone] Screening CulturePerforming Lab:see note SEE REPORT - Housekeeping Laundry Worker Id information not found for OBX-specific newscast producer legend LC - [facility] LB CBC AUTO DIFF Reviewed date:05/13/2024 10:14:57 AM Interpretation: Performing Lab: Notes/Report: [facility] ,White Blood Count5.24.0-11.0 10 3/uLRed Blood Count4.314.20-5.40 10 6/uL Msonwahwkp00.212.0-16.0 g/eASuyjhlaoki77.336.0-48.0 %Mean Corpuscular Bbxumj70.5 81.0-99.0 fLMean Corpuscular Hfhcmaqmle21.626.7-34.0 pgMean Corpuscular HGB Conc 32.829.9-35.2 g/dLRed Cell Distribution Width12.211.0-15.0 %Platelet Xxonf725 150-450 10 3/uLMean Platelet Volume9.89.5-13.5 fLNeutrophils Percent Auto37.9 43.0-75.0 %Lymphocytes Percent Auto45.220.5-60.0 %Monocytes Percent Auto9.71.7- 12.0 %Eosinophils Percent Auto5.80.9-7.0 %Basophils Percent Auto1.20.2-2.0 % Immature Granulocytes Pct Auto0.20.0-0.5 %Neutrophils Absolute Auto2.01.4-6.5 10 3/uLLymphocytes Absolute Auto2.31.2-3.8 10 3/uLMonocytes Absolute Auto0.50.3-0.8 10 3/uLEosinophils Absolute Auto0.30.0-0.7 10 3/uLBasophils Absolute Auto0.10.0- 0.1 10 3/uLImmature Granulocytes Abs Auto0.010.00-0.03 10 3/uLPerforming Lab:see noteML - [facility] LBXR cervical spine 2-3V Reviewed date:08/23/2024 04:13:50 PM Interpretation: Performing Lab: Notes/Report: Source Facility: [facility]-[address] [place] [address] [place] [address] XRay Report Signed Patient: SEVERINO GREER MR#: [id number] : 1970 Acct:[id number] Age/Sex: 53 / F ADM Date: 08/23/24 Loc: EC Attending Dr: Mick Mancuso M.D. Ordering Physician: Mick Mancuso M.D. Date of Service: 08/23/24 Procedure(s): XR cervical spine 2-3V Accession Number(s): [id number] cc: Tracie Mars M.D.; Mick Mancuso M.D. [place] [address] Patient Name: SEVERINO GREER MRN: [id number] date: 1970 Sex: F Assigned Patient Location: Current Patient Location: Accession/Order Number: [id number] Exam Date: 08/23/2024 10:06 Report Date: 08/23/2024 [...] Obrien Jr., D.O.08/23/2024 10:07 AM Dictation Location: [place] [address] Electronically authenticated by: [id number] Date: 08/23/2024 10:07 Dictated By: Kt Obrien M.D. Signed By: 08/23/24 1010 DD/ 1007 TD/TT: [facility] Paramedic:XR cervical spine 2-3V Reviewed date:07/16/2024 12:47:21 PM Interpretation: Performing Lab: Notes/Report: Source Facility: [place] [address] XRay Report Signed Patient: SEVERINO GREER MR#: [id number] : 1970 Acct:[id number] Age/Sex: 53 / F ADM Date: 07/15/24 Loc: EC Attending Dr: Edwina RUTHERFORD Ordering Physician: Edwina Dash Date of Service: 07/15/24 Procedure(s): XR cervical spine 2-3V Accession Number(s): [id number] cc: Tracie Mars M.D.; Edwina Dash [place] [id number] Patient Name: SEVERINO GREER MRN: [id number] date: 1970 Sex: F Assigned Patient Location: EC Current Patient Location: Accession/Order Number: [id number] Exam Date: 07/15/2024 10:05 Report Date: 07/16/2024 [...] Dictated By: Lizzeth Blackburn M.D. Signed By: 07/16/24938 DD/ 5 TD/TT: [facility] Paramedic:XR chest 2V Reviewed date:05/13/2024 10:14:57 AM Interpretation: Performing Lab: Notes/Report: Source Facility: [place] [address] XRay Report Signed Patient: SEVERINO GREER MR#: [id number] : 1970 Acct:[id number] Age/Sex: 53 / F ADM Date: 05/13/24 Loc: LAB Attending Dr: Edwina RUTHERFORD Ordering Physician: Edwina Dash Date of Service: 05/13/24 Procedure(s): XR chest 2V Accession Number(s): [id number] cc: Tracie Mars M.D.; Edwina Dash [place] [address] Patient Name: SEVERINO GREER MRN: [id number] date: 1970 Sex: F Assigned Patient Location: LAB Current Patient Location: LAB Accession/Order Number: [id number] Exam Date: 05/13/2024 06:57 Report Date: 05/13/2024 [...] Dictated By: Yoandy Clancy M.D. Signed By: 05/13/249 DD/ 6 TD/TT: [facility] Paramedic:ECG 12 lead Reviewed date:05/14/2024 08:34:58 PM Interpretation: Performing Lab: Notes/Report: Source Facility: [place] [address] Electrocardiograph Report Signed Patient: SEVERINO GREER MR#: [id number] : 1970 Acct:[id number] Age/Sex: 53 / F ADM Date: 05/13/24 Loc: LAB Attending Dr: Edwina RUTHERFORD Ordering Physician: Edwina Dash Date of Service: 05/13/24 Procedure(s): ECG 12 lead Accession Number(s): [id number] cc: [facility] Test Date: 2024-05-13 Pat Name: SEVERINO GREER Department: Room: - Gender: Female Mobile Manager: : 1970 Requested By: 2256 Order Number: [id number] Reading MD: MAX MENDES Measurements Intervals [place] Rate: 74 P: 27 NM: 141 QRS: 2 QRSD: 92 T: 20 QT: 406 QTc: 452 Interpretive Statements SINUS RHYTHM No previous ECG available for comparison Electronically Signed On 05-13-2024 22:51:30 EST by MAX MENDES Dictated By: Max Mendes D.O. Signed By: 05/13/24225005/13/242250 DD/ 8 TD/TT: [facility] Paramedic:Prothrombin Time INR Reviewed date:05/13/2024 10:14:57 AM Interpretation: Performing Lab: Notes/Report: [facility] ,Prothrombin Time10.99.0-11.6 secINR1.03 2.5-3.5 RECURRENT THROMBOSIS DESIRED INR: 2.0-3.0 CONDITIONS NOT LISTED BELOW 2.5-3.5 FOR PROSTHETIC HEART VALVE REPLACEMENT Performing Lab:see noteML - [facility] LBPTT Reviewed date:05/13/2024 10:14:57 AM Interpretation: Performing Lab: Notes/Report: [facility] ,Partial Thromboplastin Time24.922.3-36.2 secPerforming Lab:see noteML - [facility] LBPROF CHEM 8 (BAS METB) Reviewed date:05/13/2024 10:14:57 AM Interpretation: Performing Lab: Notes/Report: [facility] ,Ziippk540794-541 mmol/LPotassium4.73.5-5.1 mmol/WQvsgmlzm86462-950 mmol/LCarbon Fjxamac90.621.0-32.0 mmol/LAnion Gap13.4Opdchmd8481-851 mg/dLBlood Urea Nitrogen 15.07.0-18.0 mg/dLCreatinine0.920.55-1.02 mg/dLEstimated GFR ( Vidhya>60 >=60 mL/min/1.73m 2Estimated GFR (Non- Suad>60>=60 mL/min/1.73m 2BUN Creatinine Ratio16.5Agxzvme9.78.5-10.1 mg/dLPerforming Lab:see noteML - [facility] LB Reason For Referral Diagnosis 1 Left foot pain (M79. 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) ActiveconfirmedProblemAcquired hallux rigidus (1550377)Hallux rigidus, right foot (M20.21)ActiveconfirmedProblemContracture of joint of right ankle (disorder) (865988314430216)Contracture, 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)Activeconfirmed ProblemOsteopenia (781635149)Osteopenia (M85.80)ActiveconfirmedProblemGout (13585316)Gout (M10.9)ActiveconfirmedProblemCervical disc disease (408511011) Cervical disc disease (M50.90)ActiveconfirmedProblemPain in limb (90846783)Foot pain, right (M79.671)ActiveconfirmedProblemShoulder mass (R22.30)Activeconfirmed Vital Signs Blood pressure diastolic 82 mm Hg 04/15/2025 Mxrtjf73 in04/15/2025lood pressure vfqptlni397 mm Hg04/15/20254192Wsbhev249.0 lbs 04/15/2025BMI25.53 kg/m204/15/2025 Encounters Encounter Location Date Provider Diagnosis [facility] [address] [place] [address] 09/17/2024 Natividad Lewismer Gout M10.9 [facility] [address] [place] [address] 05/20/2024 Dusty Hoy Cervical disc disease M50.90 [facility] [address] [place] [address] 04/15/2025 Dusty Hoy Gout M10.9 [facility] [address] [facility] [place] [address] 04/17/2025 Dusty Hoy Gout M10.9 [facility] [address] [place] [address] 05/30/2024 Dusty Hoy [facility] [place] [address] 10/14/2024[place] [address] [place] [address]/01/2025Doug HoyGout M10.9[place] [address] [place] [address]/13/2025Doug HoyLeft foot pain M79.[address] [address] 04/19/2025Doug Hoy Assessments Encounter Date Diagnosis (ICD Code) Assessment Notes Treatment Notes Treatment Clinical Notes Section Notes 09/17/2024 Gout (ICD-10 - M10.9) Kenalog 80 ok for OWN 04/15/2025Gout (ICD-10 - M10.9) may want to try uloric if has repeat flare taper prednsione if not better friada 04/17/2025Gout (ICD-10 - M10.9)01/10/2025Gout (ICD-10 - M10.9)04/17/2025Left foot pain (ICD-10 - M79.672)05/20/2024ervical disc disease (ICD-10 - M50.90) reviewesd lab s and cxr and ecg - all normla cleared for OR Plan Of Treatment Pending Test Test Name [...] ACCESS PPO PLUS LOCAL PLAN [address] [place] [address] [id number] Najera - patient is the spouse of the insured Medications Administered Medication Instructions Date of Administration Dosage Notes Dexamethasone, 4mg/mL mgKenalog-4006380 mgKenalog-400/20 mgKetorolac Zobohcaewpju68/15/202460 mgKetorolac Lkgkcmtnizdt39/11/202560 mgKetorolac Freftqaahrgu01/13/202560 mgTriamcinolone 40 mg/ml0 mg Medical (General) History Medical History History ICD Code Vertigo R42 Collapse R55 Degenerative cervical disc M50.30 Benign essential HTN I10 Disc displacement, 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
--- OUTSIDE RECORDS SUMMARY | 2025-05-02 12:50 | XMS_ITS | Patient Health Record ---
Author Organization [facility] Address [address] [place] [address], [place] [address] Care Team Providers Care Personalized Living Manager Name Role Phone Octavio Mars M.D. Primary Care Provider UnavailSanchez Rossi Unavailable [phone] Allergies No Known Allergies Reason For Referral No Information Medications Medication SIG (Take, Route, Frequency, Duration) Notes Start Date End Date Status Allopurinol 300 MG Tablet TAKE 1 TABLET BY MOUTH EVERY DAY FOR 30 DAYS Oral; Duration: 30 Days Active Social History Section Notes: No tobacco use. Daily alcohol use. 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 Plan Of Treatment No Information Insurance Providers Payer Name Payer Address Payer Phone Subscriber Number Group Number Insured Name Patient Relationship to Insured Coverage Start Date Coverage End Date [facility] [address] [place] [address] [id number] Najera - patient is the spouse of the insured Medical (General) History Medical History History ICD Code Arthritis GoutSurgical History Surgery Date(Month/Year) C-4 to 6 Fusion 2023
--- OUTSIDE RECORDS SUMMARY | 2025-05-02 12:50 | XMS_ITS | Patient Health Record ---
Author Organization [facility] Address [address] [place] [address] Care Team Providers Care Associate Director Qa Name Role Phone Octavio Mars Primary Care Provider Hollie Ding ClaSusan coopermauro Unavailable [phone] Yoandy Burns Unavailable [phone] Manjinder Brunson Unavailable [phone] Edwina Turcios Unavailable Reason For Referral No Information Problems Problem Type SNOMED Code ICD Code Onset Dates Problem Status W/U Status Risk Notes Problem History of arthrodesis (866860404) Arthro desis status (Z98.1) ActiveconfirmedProblemRemoval of all drains (procedure) (514200016)Encounter for change or removal of drains (Z48.03)ActiveconfirmedProblemEncounter for other orthopedic aftercare (Z47.89)ActiveconfirmedProblemCervical spinal stenosis (08150237)Cervical spinal stenosis (M48.02)ActiveconfirmedProblemCervical radiculopathy (81855979)Cervical radiculopathy (M54.12)ActiveconfirmedProblem Degeneration of cervical intervertebral disc (79938706)Degeneration of C5-C6 intervertebral disc (M50.322)ActiveconfirmedProblemDegeneration of cervical intervertebral disc (88782424)Degeneration of intervertebral disc at C6-C7 level (M50.323)Activeconfirmed Encounters Encounter Location Date Provider Diagnosis [facility] Office [address] [place] [address] [place] [address] 05/24/2024 Manjinder Brunson Degeneration of intervertebral disc at C6-C7 level M50.323 ; Degeneration of C5-C6 intervertebral disc M50.322 ; Cervical radiculopathy M54.12 and Cervical spinal stenosis M48.02 [facility] [address] [place] [id number] 06/03/2024 Seldeya DingCelestine Cervical spinal stenosis M48.02 ; Degeneration of C5-C6 intervertebral disc M50.322 and Degeneration of intervertebral disc at C6-C7 level M50.323 [facility] [address] [place] [address] [place] [address] 06/07/2024 [facility] Encounter for other orthopedic aftercare Z47.89 ; Encounter for change or removal of drains Z48.03 and [facility]throdesis status Z98.1 [facility] [address] [place] [address] [place] [address] 07/15/2024 [facility] Encounter for other orthopedic aftercare Z47.89 [facility] [address] [place] [place] [address] 08/23/2024 [facility] Encounter for other orthopedic aftercare Z47.89 and Arthrodesis status Z98.1 [facility] [address] [place] [address] 06/03/2024 Michael Sprague [facility] [place] [address]/08/2024 SelHardik ToddirAftercare following surgery of the musculoskeletal system Z47.89 [facility] [place] [address]/01/2025 Yoandy Burns Assessments Encounter Date Diagnosis (ICD [...] (ICD-10 - Z47.89)1. 3 months s/p C5-7 ACDF14Degeneration of C5-C6 intervertebral disc (ICD- 10 - M50.322)06/07/2024rthrodesis status (ICD-10 - Z98.1)1. 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 We will see her back in 6 [...] Order Date Cervical spine 2 v - 18525 07/15/2024 Cervical spine 2 v - 01749 08/23/2024 Surgery Scheduling 04/24/2024 Future Test Test Name Order Date Chest 2 views - 31116 04/24/2024 CBC 04/24/2024 PT/PTT 04/24/2024 BMP 04/24/2024 MRSA (Bilateral Nares) PCR 04/24/2024 EKG 04/24/2024 Medical (General) History Medical History History ICD Code NKDA Surgical History Surgery Date(Month/Year) C5-7 ACDF 06/03/2024
== END 2025-05-02 12:44 | disposition home or self-care (01) ==
PROVIDERS: PCP Family Medicine; Visit Provider Podiatrist Foot & Ankle Surgery
DX: M20.21 Hallux rigidus, right foot (principal)
CPT/HCPCS: 73630

== ENCOUNTER 2025-05-16 08:55 | Outpatient (OUT) | payer BC, SELFPAY ==
--- OUTSIDE RECORDS SUMMARY | 2025-05-16 09:00 | XMS_ITS | CCD ---
Author Organization [facility] Care Team Providers Care Geriatric Case Manager Name Role Phone DR TRACIE MARS [...] ActivemethylPREDNISolone 4 mg oral tablet (1 source)CorticosteroidStart: 62-86-3109whvuinJTHOZULpfvqx 4 MG as directed Orally Jan, Active Completed/Discontinued Medications MedicationDrug Class(es)DatesSig (Normalized)Sig (Original)amoxicillin 875 mg / clavulanate 125 mg oral tablet (1 source)Penicillin-class AntibacterialStart: 91-51-5311qyht 1 tablet by mouth every twelve hoursAmoxicillin-Pot Clavulanate 875-125 MG 1 tablet Orally every 12 hrs for 10 day(s) Sep, Not-Takingfluticasone propionate 0.05 mg/actuat metered dose nasal spray (1 source)CorticosteroidStart: 29-66-5463rmec 2 spray(s) nasal route once daily Fluticasone Propionate 50 MCG/ACT 2 sprays Nasally Once a day for 14 day(s) Sep, Not-TakingpredniSONE 20 mg oral tablet (1 source)Start: 65-12-6123quqy 1 tablet by mouth every twelve hourspredniSONE 20 MG 1 tablet Orally bid for 5 day(s) Sep, Not-Taking Problems Problem ClassificationProblemDateDocumented DateEpisodic/ChronicConditions associated with dizziness or vertigo (4 sources)Other peripheral vertigo, unspecified ear; Translations: [OTHER PERIPHERAL VERTIGO UNS EAR]Onset: 10-65-8205HyygajhcIhloytmxla and other anemia (1 source)Anemia, unspecified; Translations: [ANEMIA UNSPECIFIED]Onset: 03-10-6315FgseqydeIgxkihvo mellitus without complication (1 source)Other abnormal glucose; Translations: [OTHER ABNORMAL GLUCOSE]Onset: 24-00-2912VyhibdbnLpxai connective tissue disease (1 source)Pain in left footEpisodicSyncope (1 source)Syncope and collapse; Translations: [SYNCOPE AND COLLAPSE]Onset: 28-11-1935Nlngzjch Results Test NameValueInterpretationReference RangeFacilityINSULINon 91-80-1708Vqfajhv 22.5 uIU/mLNormal2.6-24.9The [facility] CenterComment on above:Performed By: #### INSULIN #### [facility] [address] [place] [address] Dr. Tessa Jackson4, T3U, FTI LABCORPon 35-85-5510Bapn Thyroxine Index1.5Normal 1.2-4.9The [facility] CenterComment on above:Performed By: #### THYLC #### [facility] [address] [place] [address] Dr. Tessa JacksonT3 Wyrrbg24 %Myqnbj16-41Ynt [facility] CenterComment on above: Performed By: #### THYLC #### [facility] [address] [place] [address] Dr. Tessa Chance [Mass/Vol]5.7 ug/dLNormal4.5-12.0The [facility] CenterComment on above:Performed By: #### THYLC #### [facility] [address] [place] [address] Dr. Tessa Woodall AUTO DIFFon 66-21-3734UAKG #0.0 103/ulNormal0.0-0.1The [facility] CenterComment on above:Performed By: #### CBC #### [facility] [address] [place] [address] Dr. Tessa JacksonBasophils/100 WBC (Bld)0.1 %Critically low0.2-2.0The [facility] Hospitalment on above:Performed By: #### CBC #### [facility] [address] [place] [address] Dr. Tessa Overton #0.0 103/ulNormal0.0-0.7The [facility] CenterComment on above: Performed By: #### CBC #### [facility] [address] [place] [address] Dr. Tessa Bairdosinophils/100 WBC (Bld)0.0 %Critically low0.9-7.0The [facility] Hospitalment on above:Performed By: #### CBC #### [facility] [address] [place] [address] Dr. Tessa Bairdrythrocyte distribution width (RBC) [Ratio]13.1 %Ithwdx97.0-15.0 The [facility] CenterComment on above:Performed By: #### CBC #### [facility] [address] [place] [address] Dr. Tessa JacksonHematocrit (Bld) [Volume fraction]40.7 %Vqcgug34.0-48.0The [facility] on above:Performed By: #### CBC #### [facility] [address] [place] [address] Dr. Tessa JacksonHemoglobin (Bld) [Mass/Vol]13.5 g/gDXousuw65.0-16.0The [facility] Hospitalment on above:Performed By: #### CBC #### [facility] [address] [place] [address] Dr. Tessa Gilliland #0.03 10e3/ulNormal0.00-0.03The [facility] CenterComment on above:Performed By: #### CBC #### [facility] [address] [place] [address] Dr. Tessa Gilliland %0.4 %Normal0.0-0.5The [facility] CenterComment on above: Performed By: #### CBC #### [facility] [address] [address] [address] Tessa Kent #1.0 103/ulCritically low1.2-3.8The [facility] Comment on above:Performed By: #### CBC #### [facility] [address] [address] [address] Tessa Rodriguezmphocytes/100 WBC (Bld)14.4 %Critically low20.5-60.0The [facility] CenterComment on above:Performed By: #### CBC #### [facility] [address] [address] [address] Tessa Bhandari DIFF REQNONormalThe [facility] CenterComment on above: Performed By: #### CBC #### [facility] [address] [place] [address] Dr. Tessa Waterman (RBC) [Entitic mass]30.8 fmEbfoti83.7-34.0The [facility] CenterComment on above:Performed By: #### CBC #### [facility] [address] [place] [address] Dr. Tessa Waterman (RBC) [Mass/Vol]33.2 g/pTQdwotg15.9-35.2The [facility] CenterComment on above:Performed By: #### CBC #### [facility] [address] [place] [address] Dr. Tessa Waterman (RBC) [Entitic vol]92.7 oPCrsrws44.0-99.0The [facility] CenterComment on above:Performed By: #### CBC #### [facility] [address] [address] [address] Tessa Padilla #0.4 103/ulNormal0.3-0.8The [facility] CenterComment on above:Performed By: #### CBC #### [facility] [address] [place] [address] Dr. Tessa Gonzalezocytes/100 WBC (Bld)5.6 %Normal1.7-12.0[facility] Comment on above:Performed By: #### CBC #### [facility] [address] [address] [address] Tessa KhanUT #5.6 103/ulNormal1.4-6.5The [facility] CenterComment on above:Performed By: #### CBC #### [facility] [address] [address] [address] Tessa Khanutrophils/100 WBC (Bld)79.5 %Critically high43.0-75.0The [facility] CenterComment on above:Performed By: #### CBC #### [facility] [address] [place] [address] Dr. Tessa JacksonPlatelet mean volume (Bld) [Entitic vol]9.6 fLNormal9.5-13.5The [facility] on above:Performed By: #### CBC #### [facility] [address] [place] [address] Dr. Tessa JacksonPLT298 103/vbYxvirc560-423Pvp [facility] CenterComascension [facility] on above: Performed By: #### CBC #### [facility] [address] [place] [address] Dr. Tessa JacksonRBC4.39 106/ulNormal4.20-5.40The [facility] on above:Performed By: #### CBC #### [facility] [address] [place] [address] Dr. Tessa JacksonWBC7.1 103/ulNormal4.0-11.0The [facility] on above: Performed By: #### CBC #### [facility] [address] [place] [address] Dr. Tessa JacksonCRYanick 67-17-6270GKP [Mass/Vol]mg/LNormal<=1.0The [facility] on above:Performed By: #### CMP, CRP, LIPID, TSH #### [facility] [address] [place] [address] Dr. Tessa JacksonGLYCOHEMOGLOBIN A1Con 37-36-6385PQO RECOMMENDATIONSEE BELOWNormal The [facility] CenterComascension [facility] on above:Result Comment: ADA RECOMMENDED LIMIT 4.0 - 6.0 ADA THERAPEUTIC TARGET < 7.0 ACTION SUGGESTED > 7.0Performed By: #### A1C #### [facility] [address] [place] [address] Dr. Tessa JacksonGlucose [Mass/Vol]126 mg/dLProtestant HospitalComascension [facility] on above:Performed By: #### A1C #### [facility] [address] [place] [address] Dr. Tessa JacksonHbA1c (Bld) [Mass fraction]6.0 %Normal4.5-6.2The [facility] on above:Performed By: #### A1C #### [facility] [address] [place] [address] Dr. Tessa Martinez 13-22-2708Sbhe [Mass/Vol]92.0 ug/eFJdvpzw86.0-170.0The [facility] on above:Performed By: #### IRON #### [facility] [address] [place] [address] Dr. Tessa GarzonID PROFILEon 63-94-9159TQWH-HDL RATIO NORMSEE BELOWProtestant HospitalComascension [facility] on above:Result Comment: 3.3 - 4.4 LOW RISK 4.4 - 7.1 AVERAGE RISK 7.1 - 11.0 MODERATE RISK >11.0 HIGH RISKPerformed By: #### CMP, CRP, LIPID, TSH #### [facility] [address] [place] [address] Dr. Tessa JacksonCholesterol [Mass/Vol]385 mg/dLCritically high<=200The [facility] on above:Performed By: #### CMP, CRP, LIPID, TSH #### [facility] [address] [place] [address] Dr. Tessa Sheridanesterol in HDL [Mass/Vol]136 mg/dLCritically ncac91-70Kud [facility] on above:Performed By: #### CMP, CRP, LIPID, TSH #### [facility] [address] [place] [address] Dr. Tessa Sheridanesterol in LDL [Mass/Vol]226.6 mg/dLProtestant HospitalComment on above:Performed By: #### CMP, CRP, LIPID, TSH #### [facility] [address] [place] [address] Dr. Tessa Dueñas.total/Cholesterol in HDL [Mass ratio]2.8 {ratio} NormalThe [facility] CenterComment on above:Performed By: #### CMP, CRP, LIPID, TSH #### [facility] [address] [place] [address] Dr. Tessa Ahmadi NORMAL> or = 60 mg/dl - LOW CARDIOVASCULAR RISK <40 mg/dl - HIGH CARDIOVASCULAR RISKProtestant HospitalComment on above:Performed By: #### CMP, CRP, LIPID, TSH #### [facility] [address] [place] [address] Dr. Tessa Scott CALC NORMALSEE BELOWNoCity HospitalComment on above:Result Comment: <100 mg/dl OPTIMAL 100 - 129 mg/dl NEAR OR ABOVE OPTIMAL 130 - 159 mg/dl BORDERLINE HIGH 160 - 189 mg/dl HIGH >190 mg/dl VERY HIGH Performed By: #### CMP, CRP, LIPID, TSH #### [facility] [address] [place] [address] Dr. Tessa JacksonTriglyceride [Mass/Vol]112 mg/dLNormal<=150The [facility] Comment on above:Performed By: #### CMP, CRP, LIPID, TSH #### [facility] [address] [place] [address] Dr. Tessa RicheyLDL CALC22.4 mg/dLNoCity HospitalComment on above: Performed By: #### CMP, CRP, LIPID, TSH #### [facility] [address] [place] [address] Dr. Tessa Elizondo 14(COMP METB)on 67-40-0154Pljwytc [Mass/Vol]4.0 g/dLNormal 3.4-5.0The [facility] CenterComment on above:Performed By: #### CMP, CRP, LIPID, TSH #### [facility] [address] [address] [address] Tessa JacksonAlbumin/Globulin [Mass ratio]1.0 {ratio}NormalThe [facility] Hospitalment on above:Performed By: #### CMP, CRP, LIPID, TSH #### [facility] [address] [address] [address] Tessa AndrewsP [Catalytic activity/Vol]139 U/LCritically ppnn35-413Pjz [facility] CenterComment on above:Performed By: #### CMP, CRP, LIPID, TSH #### [facility] [address] [address] [address] Tessa AndrewsT [Catalytic activity/Vol]86 U/LCritically wyxl06-28Eex [facility] CenterComment on above:Performed By: #### CMP, CRP, LIPID, TSH #### [facility] [address] [place] [address] Dr. Tessa Willetton gap [Moles/Vol]14.8 mmol/LNormalThe [facility] Comment on above:Performed By: #### CMP, CRP, LIPID, TSH #### [facility] [address] [place] [address] Dr. Tessa JacksonAST [Catalytic activity/Vol]23 U/LTqdqvi19-70Loo [facility] on above:Performed By: #### CMP, CRP, LIPID, TSH #### [facility] [address] [place] [address] Dr. Tessa JacksonBilirubin [Mass/Vol]0.4 mg/dLNormal0.2-1.0The [facility] Comment on above:Performed By: #### CMP, CRP, LIPID, TSH #### [facility] [address] [place] [address] Dr. Tessa JacksonCalcium [Mass/Vol]10.0 mg/dLNormal8.5-10.1[facility] Comment on above:Performed By: #### CMP, CRP, LIPID, TSH #### [facility] [address] [place] [address] Dr. Tessa JacksonChloride [Moles/Vol]100 mmol/KZkktks34-773Xqe [facility] Comment on above:Performed By: #### CMP, CRP, LIPID, TSH #### [facility] [address] [address] [address] Tessa JacksonCO2 [Moles/Vol]28.0 mmol/NKmbmhy55.0-32.0The [facility] Comment on above:Performed By: #### CMP, CRP, LIPID, TSH #### [facility] [address] [address] [address] Tessa JacksonCreatinine [Mass/Vol]0.95 mg/dLNormal0.55-1.02The [facility] CenterComment on above:Performed By: #### CMP, CRP, LIPID, TSH #### [facility] [address] [address] [address] Tessa BairdGFR-AF LATVIAN>60Normal>=60The [facility] CenterComment on above:Performed By: #### CMP, CRP, LIPID, TSH #### [facility] [address] [place] [address] Dr. Tessa BairdGFR-NON AF LATVIAN>60Normal>=60The [facility] CenterComment on above:Performed By: #### CMP, CRP, LIPID, TSH #### [facility] [address] [place] [address] Dr. Tessa JacksonGlobulin (S) [Mass/Vol]3.9 g/dLNormalThe [facility] CenterComment on above:Performed By: #### CMP, CRP, LIPID, TSH #### [facility] [address] [place] [address] Dr. Tessa JacksonGlucose [Mass/Vol]127 mg/dLCritically cxsz94-184Ies [facility] CenterComment on above:Performed By: #### CMP, CRP, LIPID, TSH #### [facility] [address] [place] [address] Dr. Tessa JacksonPotassium [Moles/Vol]4.8 mmol/LNormal3.5-5.1The [facility] Comment on above:Performed By: #### CMP, CRP, LIPID, TSH #### [facility] [address] [address] [address] Tessa JacksonProtein [Mass/Vol]7.9 g/dLNormal6.4-8.2The [facility] Comment on above:Performed By: #### CMP, CRP, LIPID, TSH #### [facility] [address] [address] [address] Tessa JacksonSodium [Moles/Vol]138 mmol/FLjogqt531-106Kbn [facility] Comment on above:Performed By: #### CMP, CRP, LIPID, TSH #### [facility] [address] [place] [address] Dr. Tessa JacksonUrea nitrogen [Mass/Vol]14.0 mg/dLNormal7.0-18.0The [facility] CenterComment on above:Performed By: #### CMP, CRP, LIPID, TSH #### [facility] [address] [place] [address] Dr. Tessa Terrazas nitrogen/Creatinine [Mass ratio]14.7 mg/mgNormalThe [facility] CenterComment on above:Performed By: #### CMP, CRP, LIPID, TSH #### [facility] [address] [place] [address] Dr. Tessa Thompson RATE BROOKLYNERGRENon 79-54-0412WHF RATE28 mm/hrNormal<=30The [facility] CenterComment on above:Performed By: #### SEDR #### [facility] [address] [place] [address] Dr. Tessa Taylor 33-48-9163VXR0.639 uIU/mLNormal0.358-3.740The [facility] CenterComment on above:Performed By: #### CMP, CRP, LIPID, TSH #### [facility] [address] [place] [address] Dr. Tessa JacksonCoding Summary.on 53-70-8380Wqraqh Summary.CODING DATE: 04/10/2019 [facility] STATUS: Home (Routine DC) PAYOR: [facility] [place] ADMIT DX: REASON FOR VISIT DX: M54.2 [...] Zena Garcia CphTdy Date Saved: 04/10/2019 07:12 [facility] EastConsultation Noteon 15-85-9202Adsidvyfpfnu NoteHOSPITAL REGULATIONS: ALL Positive Important Negative Findings [...] concerns. Chauncey Alicea M.D. gls Dictated: 04/02/2019 #[id number] Typed: 04/08/2019 #[id number] cc: Chauncey Alicea M.D. Tracie Mars M.D.[facility] ClinicComment on above:Result Comment: Electronically Signed By: Deanne QUINTERO, Chauncey Moncada\.br\Date and Time Signed: 04/10/19 09:50 ESTCoding Summary.on 36-93-7187Gtyuvb Summary.CODING DATE: 03/20/2019 FINAL [facility] STATUS: Home (Routine DC) PAYOR: [facility] [place] ADMIT DX: REASON FOR VISIT DX: M50.10 [...] result in slightly different terminology. Coded By: Charoltte Verduzco Date Saved: 03/20/2019 03:38 [facility] CenterC[facility] Summary. on 63-72-5559Jgzhwg Summary.CODING DATE: 03/19/2019 FINAL [facility] STATUS: Home (Routine DC) PAYOR: [facility] [place] APC DESCRIPTION 5442 Level 2 Nerve Injections [...] By: Joan Trujillo Date Saved: 03/19/2019 08:43 [facility] EastConsultation Noteon 95-94-9259Ivzwpdkhnbhl NoteHOSPITAL REGULATIONS: ALL Positive Important Negative Findings [...] response. Chauncey Alicea M.D. gls Dictated: 03/11/2019 #[id number] Typed: 03/13/2019 #[id number] cc: Jaden Fritz M.D.[facility] ClinicComment on above:Result Comment: Electronically Signed By: Chauncey Alicea MD\.br\Date and Time Signed: 03/19/19 08:22 EDTMain OR Intraoperative Recordon 76-64-7574Oguj OR Intraoperative RecordIntraOp Document Type FTPM Summary Primary Physician: Chauncey Alicea MD Finalized Date/Time: 03/18/19 08:19:23 Pt. Name: SEVERINO GREER Trang MurilloB./Sex: 1970 Female Med Rec #: [id number] Physician: Chauncey Alicea MD Financial #: [id number] Pt. Type: P Room/Bed: / Admit/Disch: 03/18/19 [...] Role Performed Anesthesiologist of Surgeon - Primary Shot Examiner - Primary Record Time In 03/18/19 08:12:00 [...] Performed Scrub - Primary Scrub - Other Regional Property Manager Time In 03/18/19 08:12:00 03/18/19 08:12:00 03/18/19 [...] and tissue Entry 1 Skin Integrity Intact, [place], Warm, and Skin Abnormality No Dry Outcomes [...] Signatures Signed By: Zhang Carrion RN 03/18/19 08:19NoAultman Orrville HospitalMain OR Preoperative Recordon 45-45-7899Diyh OR Preoperative RecordHolding Area Document Type FTPM Summary Primary Physician: Chauncey Alicea MD Finalized Date/Time: 03/18/19 07:50:56 Pt. Name: SEVERINO GREER Trang MurilloB./Sex: 1970 Female Med Rec #: [id number] Physician: Chauncey Alicea MD Financial #: [id number] Pt. Type: P Room/Bed: / Admit/Disch: 03/18/19 [...] Signatures Signed By: Liseth Delacruz RN 03/18/19 07:50NoAultman Orrville HospitalOperative Report on 79-04-6384Ycncmnock ReportPatient: SEVERINO GREER Age: 48 years Sex: [...] resistance technique with a plastic JO syringe. Spwkxg8nH was injected under live fluoroscopy which demonstrated [...] Pressure, Monitered 113 mmHg SpO2 99 % .[facility] ClinicComment on above:Result Comment: Electronically Signed By: Chauncey Alicea MD\.br\Date and Time Signed: 03/18/19 08:20 EDTCoding Summary.on 19-60-6340Dtscbo Summary.CODING DATE: 02/28/2019 FINAL [facility] STATUS: Home (Routine DC) PAYOR: [facility] [place] APC DESCRIPTION 5442 Level 2 Nerve Injections [...] By: Charlotte Verduzco Date Saved: 02/28/2019 10:26 [facility] EastMain OR Intraoperative Recordon [id number] OR Intraoperative RecordIntraOp Document Type FTPM Summary Primary Physician: Chauncey Alicea MD Finalized Date/Time: 02/26/19 08:23:08 Pt. Name: SEVERINO GREER./Sex: 1970 Female Med Rec #: [id number] Physician: Chauncey Alicea MD Financial #: [id number] Pt. Type: P Room/Bed: / Admit/Disch: 02/26/19 [...] Role Performed Surgeon - Primary Anesthesiologist of Shot Examiner - Primary Record Time In 02/26/19 08:17:00 [...] Performed Scrub - Other Scrub - Primary Regional Property Manager Time In 02/26/19 08:17:00 02/26/19 08:17:00 02/26/19 [...] Outcomes Met? Yes Last Modified By: Trinidad Vgea RN 02/26/19 08:20:20 Post-Care Text: The patient is free from signs and symptoms of infection Skin Assessment (Pre Procedure) FTPM Pre-Care Text: Implements protective measures to prevent skin/ tissue injury due to thermal or mechanical sources Evaluates for signs and symptoms of physical injury to skin and tissue Entry 1 Skin Integrity Intact, [place], Warm, and Skin Abnormality No Dry Outcomes [...] Signatures Signed By: Trinidad Vega RN 02/26/19 08:23[facility] ClinicMain [place] Preoperative Recordon 70-52-1464Qslp OR Preoperative RecordHolding Area Document Type FTPM Summary Primary Physician: Chauncey Alicea MD Finalized Date/Time: 02/26/19 07:44:06 Pt. Name: SEVERINO GREER Trang Rees/Sex: 1970 Female Med Rec #: [id number] Physician: Chauncey Alicea MD Financial #: [id number] Pt. Type: P Room/Bed: / Admit/Disch: 02/26/19 [...] Signatures Signed By: Malorie Tolbert RN 02/26/19 07:44NoAultman Orrville HospitalOperative Reporton [id number] ReportPatient: SEVERINO GREER Age: 48 years Sex: [...] resistance technique with a plastic JO syringe. Tyfrbf0eA was injected under live fluoroscopy which demonstrated [...] good condition with post-procedure instructions. No apparent complications.[facility] ClinicComment on above: Result Comment: Electronically Signed By: Deanne QUINTERO, Chauncey Lemus.aston\Date and Time Signed: 02/26/19 08:22 EDTProgress Note-Physicianon 47-58-4933Gnnmfqfc Note-PhysicianPatient: SEVERINO GREER Age: 48 years Sex: [...] Acute carpal tunnel syndrome / SNOMED CT [id number] / Confirmed, Active Problems (1) Acute carpal tunnel syndrome Histories Past Medical History: No active or resolved past medical history items have been selected or recorded. Family History: No family history items have been selected or recorded. Procedure history: Carpal tunnel release ([id number]). Comments: 01/15/2019 10:32 - Day Colleen WEAVER [...] Results review: No qualifying data available. Plan [place] [employer]hesi[employer] (ASA) physical status classification: Class II. Anesthetic Preoperative Plan Anesthesia: Monitored anesthesia care. Anesthetic plan, risks, benefits, and alternatives discussedwith the patient and/or family. Pt. and/or family present and agree to proceed as planned.. Discussed with pt the importance of abstaining from tobacco products, and offered counseling if pt desires..[facility] ClinicComment on above:Result Comment: Electronically Signed By: Ellis Falk JR, DO.br\Date and Time Signed: 02/26/19 08:34 EDTCoding Summary.on 18-88-6503Qdnkop Summary.CODING DATE: 02/13/2019 FINAL [facility] Hospital STATUS: Home (Routine DC) PAYOR: [facility] [place] ADMIT DX: REASON FOR VISIT DX: M54.2 Cervicalgia M79.603 Pain in arm, unspecified FINAL DX: PRINCIPAL: M54.12 Radiculopathy, cervical region SECONDARY: M50.20 Other cervical disc displacement, unspecified cervical region Z79.899 Other intermediate school teacher (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 However, the narrative phrase printed from the coding software may appear abbreviated, or result in slightly different terminology. Coded By: Denise Garcia CphT Date Saved: 02/13/2019 07:11 [facility]ult[facility] Noteon 28-66-6675Xhaghfaeudxp NoteHOSPITAL REGULATIONS: ALL Positive Important Negative Findings [...] her pain as well. Treatments have included career services assistant with Dr. Mars with minimal relief, [...] not responded to appropriate conservative care including career services assistant and regular use of non-steroidal anti-inflammatory [...] meanwhile. Chauncey Alicea M.D. aek Dictated: 02/05/2019 #[id number] Typed: 02/08/2019 #[id number] cc: Jaden Fritz M.D. Timothy A Moore, MDCleveland ClinicComment on above:Result Comment: Electronically Signed By: Deanne QUINTERO, Chauncey Moncada\.br\Date and Time Signed: 02/11/19 09:25 EDTConsultation Noteon 42-49-8350Sdgxwblxjmmm Note HOSPITAL REGULATIONS: ALL Positive Important Negative Findings Shall Be Recorded. Date of 01/15/2019 Consultation: Attending Tracie Mars M.D. Physician: Consulting Doyle Bustos MD Physician: CHIEF COMPLAINT: Neck, right arm misery. HISTORY OF PRESENT ILLNESS: A 48 year old female left-hand dominant. 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 [...] options. Doyle Bustos MD lkr Dictated: 01/15/2019 #[id number] Typed: 01/17/2019 #[id number] cc: Jaden Yeager MDCleveland ClinicComment on above:Result Comment: Electronically Signed By: Doyle Bustos MD\.br\Date and Time Signed: 01/25/19 16:46 EDTCoding Summary.on 85-06-8998Diwuzs Summary.CODING DATE: 01/18/2019 FINAL [facility] STATUS: Home (Routine DC) PAYOR: [facility] [place] ADMIT DX: REASON FOR VISIT DX: M54.2 [...] Denise Garcia CphT Date Saved: 01/18/2019 09:40 [facility] Vital Signs Date TimeVital SignValuePerforming OjqduvaazJvfixzra16-94-0215 10:10-0400Body sdgdod767.64 cmCmarilee Eaton Other [facility] Other 08-16-2023 10:10-0400Body mass index (BMI) [Ratio] 26.31 kg/h0CgyxhhLili Eaton Other noXeneta Other 08-16-2023 10:10-0400Body ibbmkz09.94 kgLili Eaton Other [facility] Other 08-16-2023 10:10-0400Diastolic blood fqhjoocc18 mm[Hg] Lili Eaton Other [facility] Other 08-16-2023 10:10-0400Respiratory rate18 /minLili Eaton Other [facility] Other 08-16-2023 10:10-4029BzV6% (BldA) [Mass fraction]100 % Lili Eaton Other [facility] Other 08-16-2023 10:10-0400Systolic blood pyxizuvp907 mm[Hg] Lili Eaton Other [facility] Other Encounters Encounter DateEncounter TypeCare ProviderFacilityStart: 01-18-2023 End: 15-10-9364oyxgsofyizCurbno Lewis Other [facility] Other Start: 80-47-0364Ydxirh outpatient visit 15 minutes Lili [facility] ClydeStart: 02-03-2022 End: 03-32-0249bqyprsalqjQE TRACIE HOYFacility:H1 Procedures DateProcedureProcedure DetailPerforming ClinicianStart: 52-60-7840Vyxfjjypev consultationStart: 21-60-2250Vnxkbdxlvf consultation Payers DatePayer CategoryPayerPolicy [id number] Cross [place]y [id number] Social History DateTypeDetailFacilitySex Assigned At [facility] [employer] Other Evaluation note 01-18-2023 Note Date & TqwjMvsdZlbpizmc10-37-7291 Evaluation note* Encounter Date Diagnosis Assessment Notes [...] sx. Pt understood and agreed to txplan. [facility] Other Summary Purpose Family History No Family [...] Acute carpal tunnel syndrome / SNOMED CT 83144301 / Confirmed Physical Examination Intake and Output Pt. denies significant n/v, and is tolerating p.o. Vital Signs (last 24 hrs) Last Charted Temp Oral 36.5 DegC (FEB 26 08:27) (more content not included)... Additional Source Comments INFORMATION SOURCE (unrecogn ized section and content) DATE CREATED AUTHOR 04/10/2019 [facility] DATE CREATED AUTHOR AUTHOR'S ORGANIZ ATION 02/04/2022 [facility] REASON FOR VISIT (unrecogniz ed section [...] BE BASED ON THE PRIMARY CLINICAL RECORDS. [employer] provides no warranty or guarantee of the accuracy or completeness of information in this document.
--- NOTE | 2025-05-16 09:02 | ECG_ITS ---
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 Measurements Intervals [place] Rate: 82 P: 19 ND: 135 QRS: 3 QRSD: 94 T: 21 QT: 413 QTc: 483 Interpretive Statements SINUS RHYTHM Normal ECG Compared to ECG 05/13/2024 07:09:05 No significant changes Electronically Signed On 05-16-2025 17:22:50 EST by SWETA RODRIGUEZ M.D.
--- NOTE | 2025-05-16 09:35 | P.GSHP_ITS ---
History of Present Illness History of Present Illness Chief complaint: Hallux Rigidus Narrative: Nathalie Bacon is a pleasant 54-year-old female with a history of gout who presents to presurgical testing for the diagnosis of right hallux rigidus and is scheduled for right first MPJ fusion with bone graft as needed per Dr. Sanchez Ordaz Review of Systems ROS Narrative REVIEW OF SYSTEMS: Negative except as stated in HPI, ten or more systems reviewed. Constitutional: No fever, chills, weakness ENT: No sore throat or epistaxis Cardiovascular: No edema, chest pain, palpitations, or activity intolerance Respiratory: No shortness of breath, cough, or wheezing Musculoskeletal: Complaints of mild swelling to the right medial foot at the first toe Gastrointestinal: No abdominal pain, constipation, diarrhea, or vomiting Genitourinary: No dysuria or hematuria Neurological: No numbness, tingling, weakness, or headache Psychiatric: No mood changes PFSH PFSH Medical History (Updated 05/16/25 @ 09:39 by Odalis Newman) Fusion of spine ?M43.20 - Fusion of spine, site unspecified (ICD-10) Neck pain ?M54.2 - Cervicalgia (ICD-10) Back pain ?M54.9 - Dorsalgia, unspecified (ICD-10) Osteoarthritis ?M19.90 - Unspecified osteoarthritis, unspecified site (ICD-10) Seasonal allergies ?J30.2 - Other seasonal allergic rhinitis (ICD-10) Surgical History (Updated 05/16/25 @ 09:20 by Odalis Newman) History of carpal tunnel release ?Z98.890 - Other specified postprocedural states (ICD-10) History of appendectomy ?Z90.49 - Acquired absence of other specified parts of digestive tract (ICD- 10) Family History (Updated 05/16/25 @ 09:17 by Odalis Newman) Other Family history of COPD (chronic obstructive pulmonary disease) Family history of hypertension Family history of lung cancer Family history of prostate cancer Family history of stroke Social History (Updated 05/16/25 @ 09:15 by Odalis Newman) Within the past year, how often did you have a drink containing alcohol: 4 or more times a week Smoking status: Never smoker Non-prescribed substance use: denies use Previous occupational history: [employer] Highest level of school completed/degree received: high school graduate Meds Home Medications and Allergies Home Medications ?Medication ?Instructions ?Recorded ?Confirmed ?Type allopurinol 300 mg tablet 300 mg PO DAILY 05/16/2505/29 History Allergies Allergy/AdvReac Type Severity Reaction Status Date / Time No Known Drug Allergies Allergy Verified 05/16/25 09:12 Exam Narrative Exam Narrative: Constitutional: Awake, alert, comfortable, well-appearing, nontoxic, interactive, vital signs as charted Head: Normocephalic, atraumatic Eyes: Conjunctiva and lids normal to inspection, pupils normal ENT: Tympanic membranes pearly javed, nonerythematous, noninjected, naris patent, posterior oropharynx clear, oral mucosa moist Neck: Supple, normal appearance, normal range of motion, no meningeal signs, no lymphadenopathy Respiratory: No respiratory distress, breath sounds clear Cardiovascular: Regular rate and rhythm, strong and regular heart tones Abdomen: Nontender, normal bowel sounds, soft, no CVA tenderness Musculoskeletal: Normal gait, mild soft tissue swelling to the medial forefoot and first MPJ and notable periarticular osteophyte to the right first MPJ Skin: No rashes or induration, no lesions, only visible skin inspected Neuro: No neurological deficits, normal sensation Psychiatric: Oriented ?3, normal affect Assessment and Plan Assessment and Plan (1) Hallux rigidus, right foot: Plan Plan is for right first MPJ fusion with bone graft as needed per Dr. Sanchez Ordaz
[2025-05-16 11:03] LABS: Anion Gap 13.0; Blood Urea Nitrogen 14.0 mg/dL (7.0-18.0); Calcium 9.6 mg/dL (8.5-10.1); Carbon Dioxide 26.9 mmol/L (21.0-32.0); Chloride 104 mmol/L (98-107); Estimated GFR (African America >60 (>=60 mL/min/1.73m^2); Estimated GFR (Non-African Ame >60 (>=60 mL/min/1.73m^2); Glucose 89 mg/dL (74-106); Potassium 3.9 mmol/L (3.5-5.1); Sodium 140 mmol/L (136-145)
== END 2025-05-16 08:56 | disposition home or self-care (01) ==
LOC: PST 08:55
PROVIDERS: PCP Family Medicine; Visit Provider Podiatrist Foot & Ankle Surgery
DX: Z01.810 Encounter for preprocedural cardiovascular examination (principal); Z01.812 Encounter for preprocedural laboratory examination; Z01.818 Encounter for other preprocedural examination; M20.21 Hallux rigidus, right foot
CPT/HCPCS: 36415; 80048; 93005; G0463

== ENCOUNTER 2025-05-20 06:26 | Day surgery (SDC) | payer BC, SELFPAY ==
--- OUTSIDE RECORDS SUMMARY | 2024-07-12 04:50 | XMS_ITS ---
Author Organization [facility] Address [address] [place] [address] Care Team Providers Care Manager Cargo Name Role Phone Octavio Mars Primary Care Provider Michael Santiago Unavailable [phone] REASON FOR VISIT C5-7 ACDF, 06/03/24, IOS Encounters Encounter Location Date Provider Diagnosis [facility] Office [address] [place] [address] [address] [place] [address] 07/12/2024 Michael Sprague Aftercare following surgery of the musculoskeletal system Z47.89 Assessments Encounter Date Diagnosis (ICD Code) Assessment Notes Treatment Notes Treatment Clinical Notes Section Notes 07/12/2024 Aftercare following surgery of the musculoskeletal system (ICD-10 - Z47.89) Plan Of Treatment Pending Test Test Name Order Date Cervical spine 2 v - 48321 07/12/2024 Progress Notes * SEVERINO GREER MDOB:1970 (54 yo F)Acc No.[id number]:07/12/2024 Progress Notes Patient: Yelitza SEVERINO ZARATE :?Michael Mancuso MD, PhDDOB:1970 ???Age:53 Y???Sex:FemaleDate:07/12/2024Phone:[phone]:KIRK RUCKER [place] [id number]:Octavio Mars Subjective: * Chief Complaints: * 1 . C5-7 ACDF, 06/03/24, IOS. * Medical History: Objective: * Vitals: Assessment: * Assessment: 1.?Aftercare following surgery of the musculoskeletal system - Z47.89 (Primary)?? Plan: * Treatment: ?Imaging: Cervical spine 2 v - 69036 Forms: * Images: * Electronic signature of Michael Sprague MD, PHD on 05/20/2025 at 06:31 AM EST Sign off status: Pending * Provider: Diana Mancuso MD, PhD Date: 0 07/12/2024 Generated for Printing/Faxing/eTransmitting on:?05/20/2025 06:31 AM EST
--- OUTSIDE RECORDS SUMMARY | 2024-07-26 05:40 | XMS_ITS ---
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 Name Role Phone Octavio Mars Primary Care Provider Michael Santiago [phone] REASON FOR VISIT C5-7 ACDF, 06/03/24, IOS Encounters Encounter Location Date Provider Diagnosis [facility] [facility] [address] [place] [address] [place] [address] 07/26/2024 Michael Sprague Plan Of Treatment No Information Progress Notes * SEVERINO GREER MDOB:1970 (54 yo F)Acc No.[id number]:07/26/2024 Progress Notes Patient: Yelitza MCLEANSEVERINO Mabry :?Michael Mancuso MD, PhDDOB:1970 ???Age:53 Y???Sex:FemaleDate:07/26/2024Phone:[phone]:[address] [place], [place] [address], [place]FU-[id number]:Octavio Ellsworthmisty Subjective: * Chief Complaints: * 1 . C5-7 ACDF, 06/03/24, IOS. * Medical History: Objective: * Vitals: Assessment: Plan: * Treatment: Forms: * Images: * Electronic signature of Michael Sprague MD, PHD on 05/20/2025 at 06:35 AM EST Sign off status: Pending * Provider: Diana Mancuso MD, PhD Date: 0 07/26/2024 Generated for Printing/Faxing/eTransmitting on:?05/20/2025 06:35 AM EST
--- OUTSIDE RECORDS SUMMARY | 2025-05-16 06:00 | XMS_ITS ---
Author Organization [facility] in [place] Address [address] [place] [address] Care Team Providers Care Slag Production Worker Name Role Phone Dusty Mars Primary Care Provider Allergies No Known Allergies REASON FOR VISIT Presents to office alone. Was sent over from [facility] for elevated b/p, Is having bone fusion with Dr. Ordaz on 05/20 Medications Medication SIG (Take, Route, Frequency, Duration) Notes Start Date End Date Status Allopurinol 300 MG 1 tablet Orally Once a day; D uration: 30 days 5ActiveColchicine 0.6 MGTAKE 1 TABLET BY MOUTH DAILY NEEDED FOR GOUT FOR 30 DAYS. REPEAT IN 1 HOUR IF NEEDEDActiveamLODIPine Besylate 5 MG1 tablet Orally Once a day; Duration: 30 days5Active Social History Tobacco Use: Social History Observation [...] or more times a week (4 points) Sydrfx9ZkgldlldoyipejIogepahn Problems Problem Type SNOMED Code ICD Code Onset Dates Problem Status W/U Status Risk Notes Problem Hypertension (43060062) Hypertension (I10 ) Activeconfirmed Vital Signs Blood pressure systolic 160 mm Hg 05/16/20 25 Blood pressure diastolic 90 mm Hg 025 Height 67 in 05/16/2025 Weight 164.6 lbs 05/16/2025 BMI 25.78 kg/m2 05/16/2025 Encounters Encounter Location Date Provider Diagnosis [facility] [address] [facility] [place] [address] 05/16/2025 Dusty Mars Hypertension I10 Assessments Encounter Date Diagnosis (ICD Code) Assessment Notes Treatment Notes Treatment Clinical Notes Section Notes 05/16/2025 Hypertension (ICD-10 - I10) starting amlodiopine and should be good to go by next monday - likely stop med after - cleard for OR05/16/2025OtherContinue taking medications as prescribed and monitor BP at home regularly. Plan Of Treatment Medication Medication Name Sig Start Date Stop Date Notes amLODIPine Besylate 5 MG 1 tablet Orally Once a day; Duration: 30 days 05/16/2025 Treatment Notes Assessment Notes Hypertension starting amlodiopine and should be good to go by next monday - likely stop med after - cleard for OR Other Continue taking medi cations as prescribed and monitor BP at home regularly. Progress Notes * Nathalie BACON MDOB:1970 (54 yo F)Acc No.[id number]:05/16/2025 Progress Note Patient: Nathalie POE :?Octavio Mars ([facility]), MDDOB:1970???Age: 54 Y???Sex:FemaleDate:05/16/2025Phone:[phone]:[address] [facility], [facility] [place], [id number] In:10:48 AM ESTCheck Out:11:29 AM EST Subjective: * Chief Complaints: * P resents to office alone. Was sent over from [facility] for elevated b/pIs having bone fusion with Dr. Ordaz on 05/20 * HPI: ???Hypertension:?The patient complains of?high blood pressure.?The symptoms have been present for?1-2 days.?The symptoms are?moderate.?Symptomatic treatment has included?home blood pressure monitoring.?Associated symptoms include?none.? * ROS: ???General/Constitutional:?Lightheadedness?denies.?Fatigue or Weakness?denies.?Cardiovascular:?Chest pain at rest?denies.?Chest pain with exertion denies.?Irregular heartbeat?denies.?Respiratory:?Shortness of breath?denies.?Shortness of breath at res t?denies.?Wheezing?denies.?Neurologic:?Dizziness?denies.?Fainting?denies.?Headache denies.? 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 Modified On:12/19/2022W/U Status:bcxhbnzpcJ09.80Osteopenia Modified On:01/04/2023/U Status:zzviqzktxP66.9Gout Modified On:02/10/2023/U Status:pgemwheahM05.671Foot pain, right Modified On:12/18/2023/U Status:ggrrajwxhM36.21Hallux rigidus, right foot Modified On:12/27/2023/U Status:rtepgdszcG33.571Contracture, right ankle Modified On:12/27/2023W/U Status:knyhwqcwrH54.30Shoulder mass Modified On:02/22/2024W/U Status:lmdfvbgwvQ14.90Cervical disc disease Modified On:03/14/2024W/U Status:cqgmzrgmbH86Rznojwwtjwbr Modified On:05/16/2025/U Status:confirmed * Medical History: * Surgical History: b ilateral carpal tunel appendix c6-c7 neck fusion may 2024 * Hospitalization/Major Diagno stic Procedure: s ee above * Family History: F ather: alive, prostate cancer, diagnosed with Cancer. M other: , LUNG CANCER, glaucoma, thyroid disease, diagnosed with Cancer. B rother(s): alive, prostate cancer, diagnosed with Cancer. S on(s): alive. D maribelhter(s): alive. P atejuan [place] Grandmother: , diagnosed with Heart Disease. 1 [...] DAYS. REPEAT IN 1 HOUR IF NEEDED DiscontinuedpredniSONE 20 MG Tablet 3 tablets Orally Once a day Medication List reviewed and reconciled with the patientDiscontinued predniSONE 20 MG Tablet 3 tablets Orally Once a day Medication List reviewed and reconciled with the patient * Allergies: N .K.D.A.no[Allergies Verified] Objective: * Vitals: W t:164.6lbs, Ht: 67 in, BP:160/90mm Hg, BMI:25.78Index, Ht-cm: 170.18 cm, Wt-k.66 kg. * Examination: ???General Examination: ?GENERAL APPEARANCE:? in no acute distress, well developed,well nourished.?LUNGS:? clear to auscultation bilaterally.?CARDIO:? S1, S2 normal, no murmurs, rubs, gallops.?EXTREMITIES:? no clubbing, cyanosis, or edema.?NEUROLOGIC:? alert, oriented to time, place, & person. ??? Assessment: * Assessment: 1.?Hypertension - I10 (Primary)??? Plan: * Treatment: Start amLODIPine Besylate Tablet, 5 MG, 1 tablet, Orally, Once a day, 30 days, 30 Tablet, Refills .?? Notes: starting amlodiopine and should be good to go by next monday - likely stop med after - cleard for OR??2.?Others? Notes:Continue taking medications as prescribed and monitor BP at home regularly.?? * Procedure Codes: * Preventive Medicine: ??Screenings/Counseling:?BMI ACTION PLAN?Above Normal BMI Follow-up?Dietary management education, guidance, and counseling See treatment section of progress note for complete details of management plan. * * Sign off status: CompletedVisit Status:?CHK (Check Out) true * Provider: Antwan aMrs ([facility])MD Date: 1 07/17/2024 Generated for Printing/Faxing/eTransmitting on:?05/20/2025 06:35 AM EST History and Physical Notes * HPI (History of Present Illness) CategorySub-CategoryDetailNotesCategory NotesHypertensionThe patient complains ofhigh blood pressureThe symptoms have been present for1-2 daysThe symptoms are moderateSymptomatic treatment has includedhome blood pressure monitoring Associated symptoms includenone Examination CategorySub-CategoryDetailNotesCategory NotesGeneral ExaminationGENERAL APPEARANCE:in no acute distress, well developed, well nourishedCARDIO:S1, S2 normal, no murmurs, rubs, gallopsLUNGS:clear to auscultation bilaterally NEUROLOGIC:alert, oriented to time, place, & personEXTREMITIES:no clubbing, cyanosis, or edema
[2025-05-16 09:15] VITALS: BP 165/94; PULSE 80; TEMP 36.2; O2SAT 98; BMI 25.8
--- OUTSIDE RECORDS SUMMARY | 2025-05-19 04:30 | XMS_ITS ---
Author Organization [facility] in [place] Address [address] [place] [address] Care Team Providers Care Corn Press Operator Name Role Phone SengDusty jay Primary Care Provider REASON FOR VISIT BP CHECK Vital Signs Blood pressure systolic 138 mm Hg 05/19/20 25 Blood pressure diastolic 80 mm Hg 025 Height 67 in 05/19/2025 Encounters Encounter Location Date Provider Diagnosis [facility] [address] [place] [address] 05/19/2025 Dusty Mars Hypertension I10 Assessments Encounter Date Diagnosis (ICD Code) Assessment Notes Treatment Notes Treatment Clinical Notes Section Notes 05/19/2025 Hypertension (ICD-10 - I10) Plan Of Treatment No Information Progress Notes * Nathalie BACON MDOB:1970 (54 yo F)Acc No.[id number]:05/19/2025 BP Check Patient: Yelitza Nathalie ZARATE :?Octavio MAshley Madisyn ([facility]), MDDOB:1970???Age: 54 Y???Sex:FemaleDate:05/19/2025Phone:[phone]:[address] [place], [place]Fpzts In:09:34 AM ESTCheck Out:09:36 AM EST Subjective: * Chief Complaints: * 1 . BP CHECK. * HPI: ???General:? bp check. 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 Modified On:12/19/2022/U Status:eaxzufdlcV52.80Osteopenia Modified On:01/04/2023 Status:vlqwrxlbgD57.9Gout Modified On:02/10/2023 Status:nfapzikbpF81.671Foot pain, right Modified On:12/18/2023U Status:mptmdfzjxL00.21Hallux rigidus, right foot Modified On:12/27/2023U Status:htepzxczpF23.571Contracture, right ankle Modified On:12/27/2023U Status:zorpspzmrC57.30Shoulder mass Modified On:02/22/2024 Status:oupdokpibB45.90Cervical disc disease Modified On:03/14/2024 Status:ixuvwqyhdI01Nbuuybugidcg Modified On:05/16/2025 Status:confirmed * Medical History: Objective: * Vitals: H t: 67 in, BP:138/80mm Hg, Ht-cm: 170.18 cm. Assessment: * Assessment: 1.?Hypertension - I10 (Primary)??? Plan: * Treatment: * Procedure Codes: 3 079F DIAST BP 80-89 MM HG, 3075F SYST BP GE 130 - 139MM HG * * ign off status: CompletedVisit Status:?CHK (Check Out) true * Provider: Antwan Mars (LAYO)MD Date: 1 07/20/2024 Generated for Printing/Faxing/eTransmitting on:?05/20/2025 06:36 AM EST History and Physical Notes * HPI (History of Present Illness) CategorySub-CategoryDetailNotesCategory NotesGeneralbp check
[2025-05-20] VITALS (11 sets, daily range): BP systolic 142–161; BP diastolic 81–118; PULSE 80–103; TEMP 36.2–36.6; O2SAT 89–99; BMI 26.4
--- OUTSIDE RECORDS SUMMARY | 2025-05-20 06:31 | XMS_ITS | Patient Health Record ---
Author Organization [facility] in [place] Address [address] [place] [address] Care Team Providers Care Teaching Dietitian Name Role Phone Dusty Mars Primary Care Provider Natividad Bowser Unavailable [phone] Allergies No Known Allergies Results Component Value Reference Range Notes XR cervical spine 2-3V Reviewed date:08/23/2024 04:13:50 PM Interpretation: Performing Lab: Notes/Report: Source Facility: [place] [address] XRay Report Signed Patient: SEVERINO GREER MR#: [id number] : 1970 Acct:[id number] Age/Sex: 53 / F ADM Date: 08/23/24 Loc: EC Attending Dr: Mick Mancuso M.D. Ordering Physician: Mick Mancuso M.D. Date of Service: 08/23/24 Procedure(s): XR cervical spine 2-3V Accession Number(s): [id number] cc: Tracie Mars M.D.; Mick Mancuso M.D. [place] [id number] Patient Name: SEVERINO GREER MRN: [id number] date: 1970 Sex: F Assigned Patient Location: EC Current Patient Location: EC Accession/Order Number: [id number] Exam Date: 08/23/2024 10:06 Report Date: 08/23/2024 [...] Obrien Jr., D.O.08/23/2024 10:07 AM Dictation Location: [place] [address] Electronically authenticated by: [id number] Date: 08/23/2024 10:07 Dictated By: Kt Obrien M.D. Signed By: 08/23/24 1010 DD/ 1007 TD/TT: Vehicle Upholsterer: XR FOOT LT 2V Reviewed date:04/19/2025 12:56:58 PM Interpretation: Performing Lab: Notes/Report: Source Facility: [place] [address] XRay Report Signed Patient: SEVERINO GREER MR#: [id number] : 1970 Acct:[id number] Age/Sex: 54 / F ADM Date: 04/17/25 Loc: RAD Attending Dr: Tracie Mars M.D. Ordering Physician: Tracie Mars M.D. Date of Service: 04/17/25 Procedure(s): XR foot LT 2V Accession Number(s): [id number] cc: Tracie Mars M.D. [place] [address] Patient Name: SEVERINO GREER MRN: [id number] date: 1970 Sex: F Assigned Patient Location: [facility] Current Patient Location: Accession/Order Number: [id number] Exam Date: 04/17/2025 14:45 Report Date: 04/18/2025 [...] Batista M.D. 04/18/2025 7:50 AM Dictation Location: [place] [address] Electronically authenticated by: [id number] Y Date: 04/18/2025 07:50 Dictated By: Nubia Batista M.D. Signed By: 04/18/25 0753 DD/ 0750 TD/TT: Vehicle Upholsterer: ECG 12 lead Reviewed date:05/17/2025 04:43:04 PM Interpretation: Performing Lab: Notes/Report: Source Facility: [place] [address] [place] [address] Electrocardiograph Report Signed Patient: SEVERINO GREER MR#: [id number] : 1970 Acct:[id number] Age/Sex: 54 / F ADM Date: 05/16/25 Loc: PST Attending Dr: Eun Ordaz D.P.M. Ordering Physician: Eun Ordaz D.P.M. Date of Service: 05/16/25 Procedure(s): ECG 12 lead Accession Number(s): [id number] cc: [facility] Test Date: 2025-05-16 Pat Name: SEVERINO GREER Department: Room: - Gender: Female Site Specialist: : 1970 Requested By: TRACIE MARS Order Number: [id number] Marc MD: SWETA RODRIGUEZ M.D. Measurements Intervals [place] Rate: 82 P: 19 HI: 135 QRS: 3 QRSD: 94 T: 21 QT: 413 QTc: 483 Interpretive Statements SINUS RHYTHM Normal ECG Compared to ECG 05/13/2024 07:09:05 No significant changes Electronically Signed On 05-16-2025 17:22:50 EST by SWETA RODRIGUEZ M.D. Dictated By: SWETA RODRIGUEZ Signed By: 05/16/25 1722 DD/ 0836 TD/TT: Vehicle Upholsterer: XR cervical spine 2-3V Reviewed date:07/16/2024 12:47:21 PM Interpretation: Performing Lab: Notes/Report: Source Facility: [place] [address] XRay Report Signed Patient: SEVERINO GREER MR#: [id number] : 1970 Acct:[id number] Age/Sex: 53 / F ADM Date: 07/15/24 Loc: EC Attending Dr: Edwina RUTHERFORD Ordering Physician: Edwina Dash Date of Service: 07/15/24 Procedure(s): XR cervical spine 2-3V Accession Number(s): [id number] cc: Tracie Mars M.D.; Edwina Dash [place] [address] Patient Name: SEVERINO GREER MRN: [id number] date: 1970 Sex: F Assigned Patient Location: Current Patient Location: Accession/Order Number: [id number] Exam Date: 07/15/2024 10:05 Report Date: 07/16/2024 [...] M.D. Signed By: 07/16/24938 DD/ 5 TD/TT: Vehicle Upholsterer: PROF RAYMUNDO Sarkar ([facility]) Reviewed date:05/17/2025 04:43:04 PM Interpretation: Performing Lab: Notes/Report: [facility] , Sodium 140 136-145 mmol/L Potassium3.93.5-5.1 mmol/GMpgtdphe32449-589 mmol/LCarbon Zvbpuvn33.921.0-32.0 mmol/LAnion Gap13.9Trtbgug6768-701 mg/dLBlood Urea Yjsizkxr34.07.0-18.0 mg/dL Creatinine0.810.55-1.02 mg/dLEstimated GFR ( Vidhya>60>=60 mL/min/1.73m 2Estimated GFR (Non- Suad>60>=60 mL/min/1.73m 2BUN Creatinine Ratio17.3 Calcium9.68.5-10.1 mg/dLPerforming Lab:see noteML - [facility] LBXR foot RT min 3V Reviewed date:05/05/2025 02:33:58 PM Interpretation: Performing Lab: Notes/Report: Source Facility: [facility] [place] [address] [place] [address] XRay Report Signed Patient: SEVERINO GREER MR#: [id number] : 1970 Acct:[id number] Age/Sex: 54 / F ADM Date: 05/02/25 Loc: RAD Attending Dr: Eun Ordaz D.P.M. Ordering Physician: Eun Ordaz D.P.M. Date of Service: 05/02/25 Procedure(s): XR foot RT min 3V Accession Number(s): [id number] cc: Eun Ordaz D.P.M.; Tracie Mars M.D. [place] [address] Patient Name: SEVERINO GREER MRN: [id number] date: 1970 Sex: F Assigned Patient Location: [facility] Current Patient Location: [facility] Accession/Order Number: [id number] Exam Date: 05/02/2025 13:00 Report Date: 05/02/2025 13:43 At the request of: EUN ORDAZ DPTrang Procedure: XR foot RT min 3V RIGHT FOOT - 3 views CLINICAL HISTORY: Hallux Rigidus COMPARISON: Right foot 12/27/2023 FINDINGS: No focal soft tissue abnormality. No acute bony process is seen. Both are grossly demineralized. Moderate degenerative changes of the first MTP joint without bony erosions. XR/XR foot RT min 3V IMPRESSION: MODERATE DEGENERATIVE CHANGES INVOLVING THE FIRST MTP JOINT WITHOUT BONY EROSIONS. Impression dictated by: Kt Obrien Jr., D.O. 05/02/2025 1:43 PM Dictation Location: [place] [address] Electronically authenticated by: [id number] Y Date: 05/02/2025 13:43 Dictated By: Kt Obrien M.D. Signed By: 05/02/25 1345 DD/ 1343 TD/TT: Vehicle Upholsterer: Reason For Referral Diagnosis 1 Left foot pain (M79. 672) Referral Organization [facility] Referring Provider First Name Dusty Referring Provider Last Name Madisyn Referring Provider Speciality [facility] ankit Referred Provider Eun Ordaz Referred Provider Specialty Podiatry Referral Priority [...] the past year?Daily or almost daily (4 points)Pzyxmi93EarxlplpgfojmlFpwjcfhpCICUA-Z (Standard) Question Answer Notes Did you have [...] or more times a week (4 points) Gqywel7DkovakxdpnhbldOxgdtlss Problems Problem Type SNOMED Code ICD Code Onset Dates Problem Status W/U Status Risk Notes Problem Primary ovarian failure (2462886 9) 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) ActiveconfirmedProblemAcquired hallux rigidus (3633627)Hallux rigidus, right foot (M20.21)ActiveconfirmedProblemContracture of joint of right ankle (disorder) (229708677061909)Contracture, 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)Activeconfirmed ProblemHypertension (74934664)Hypertension (I10)ActiveconfirmedProblemOsteopenia (233757898)Osteopenia (M85.80)ActiveconfirmedProblemGout (11588437)Gout (M10.9) ActiveconfirmedProblemCervical disc disease (145773745)Cervical disc disease (M50.90)ActiveconfirmedProblemPain in limb (82750667)Foot pain, right (M79.671) ActiveconfirmedProblemShoulder mass (R22.30)Activeconfirmed Vital Signs Blood pressure diastolic 80 mm Hg 05/19/2025 Nkauyu71 in05/19/2025lood pressure ajriezrp713 mm Hg05/19/20251837Fvpkaq395.6 lbs 05/16/2025BMI25.78 kg/m205/16/2025 Encounters Encounter Location Date Provider Diagnosis [facility] [address] [place] [facility] [place] [place] [address] 09/17/2024 Natividad Bowser Gout M10.9 [facility] [address] [place] [facility] [place] [place] [address] 05/19/2025 Dusty [address] Hypertension I10 [facility] [address] [place] [place] [place] [address] 04/17/2025 Dusty Hoy Gout M10.9 [facility] [address] [place] [place] [place] [address] 05/20/2024 Dusty Hoy Cervical disc diseas e M50.90 [facility] [address] [place] [place] [place] [address] 04/15/2025 [address] M[address].9 [facility] [address] [place] [place] [place] [address] 05/16/[address] [facility] [address] [place] [place] [place] [address] 04/19/2025 [facility] [place] [address] 05/19/2025Doug [facility] [place] [address]/oug [facility] [facility] [place] [address]/05/2025Doug [facility] [facility] [place] [address]/01/2025Doug HoyGout M10.9B[facility] [facility] [place] [address]/Doug Hoy Left foot pain M79.672 Assessments Encounter Date Diagnosis (ICD Code) Assessment Notes Treatment Notes Treatment Clinical Notes Section Notes 05/20/2024 Cervical disc disease (ICD-10 - M50.90) reviewesd lab s and cxr and ecg - all normla cleared for OR 09/17/2024Gout (ICD-10 - M10.9) Kenalog 80 ok for OWN 04/15/2025Gout (ICD-10 - M10.9) may want to try uloric if has repeat flare taper prednsione if not better 04/17/2025Gout (ICD-10 - M10.9)05/16/2025Hypertension (ICD-10 - I10)starting amlodiopine and should be good to go by next monday - likely stop med after - cleard for OR05/19/2025Hypertension (ICD-10 - I10)01/10/2025Gout (ICD-10 - M10.9)04/17/2025Left foot pain (ICD-10 - M79.672)05/16/2025OtherContinue taking medications as prescribed and monitor BP at home regularly. Plan Of Treatment Pending Test Test Name [...] ACCESS PPO PLUS LOCAL PLAN [address] [place] [address] [id number] Najera - patient is the spouse of the insured Medications Administered Medication Instructions Date of Administration Dosage Notes Dexamethasone, 4mg/mL mgKenalog-4006380 mgKenalog-4003/20 mgKetorolac Qiedrhjykgtz90/15/202460 mgKetorolac Sqmtxcnqkvce79/11/202560 mgKetorolac Ddqwusjbcrlu79/13/202560 mgTriamcinolone 40 mg/ml mg Medical (General) History Medical History History ICD Code Vertigo R42 Collapse R55 Degenerative cervical disc M50.30 Benign essential HTN I10 Disc displacement, lumbar M51.26 Hyperlipidemia E78.5 Surgical History Surgery Date(Month/Year) c6-c7 neck fusion may 2024 appendix bilateral carpal tunelHospitalization History Reason Date(Month/Year) see above
[2025-05-20 06:35] LABS: Hematocrit 39.6 % (36.0-48.0); Hemoglobin 13.2 g/dL (12.0-16.0); Immature Granulocytes Abs Auto 0.02 10^3/uL (0.00-0.03); Immature Granulocytes Pct Auto 0.3 % (0.0-0.5); Lymphocytes Absolute Auto 2.5 10^3/uL (1.2-3.8); Mean Corpuscular HGB Conc 33.3 g/dL (29.9-35.2); Mean Corpuscular Hemoglobin 31.1 pg (26.7-34.0); Mean Corpuscular Volume 93.2 fL (81.0-99.0); Platelet Count 334 10^3/uL (150-450); Red Blood Count 4.25 10^6/uL (4.20-5.40); White Blood Count 6.0 10^3/uL (4.0-11.0)
--- OUTSIDE RECORDS SUMMARY | 2025-05-20 06:35 | XMS_ITS | Patient Health Record ---
Author Organization [facility] Address [address] [place] [address] Care Team Providers Care Photocopier Technician Name Role Phone Octavio Mars Primary Care Provider Unavailjoie Ding Michael Echevarria Unavailable [phone] Yoandy Burns Unavailable [phone] Manjinder Brunson Unavailable [phone] Edwina Turcios Unavailable [phone] Reason For Referral No Information Problems Problem Type SNOMED Code ICD Code Onset Dates Problem Status W/U Status Risk Notes Problem Cervical radiculopathy (23045094) Cervica l radiculopathy (M54.12) ActiveconfirmedProblemCervical spinal stenosis (76164118)Cervical spinal stenosis (M48.02)ActiveconfirmedProblemHistory of arthrodesis (246457044) Arthrodesis status (Z98.1)ActiveconfirmedProblemRemoval of all drains (procedure) (112500606)Encounter for change or removal of drains (Z48.03)Active confirmedProblemDegeneration of cervical intervertebral disc (01167631) Degeneration of intervertebral disc at C6-C7 level (M50.323)Activeconfirmed ProblemDegeneration of cervical intervertebral disc (90915455)Degeneration of C5-C6 intervertebral disc (M50.322)ActiveconfirmedProblemEncounter for other orthopedic aftercare (Z47.89)Activeconfirmed Encounters Encounter Location Date Provider Diagnosis [facility] Office [address] [place] [address] [place] [address] 05/24/2024 Manjinder Brunson Degeneration of intervertebral disc at C6-C7 level M50.323 ; Degeneration of C5-C6 intervertebral disc M50.322 ; Cervical radiculopathy M54.12 and Cervical spinal stenosis M48.02 [facility] [address] [place] [id number] 06/03/2024 Seldeya DingCelestine Cervical spinal stenosis M48.02 ; Degeneration of C5-C6 intervertebral disc M50.322 and Degeneration of intervertebral disc at C6-C7 level M50.323 [facility] [address] [facility] [place] [address] [place] [address] 06/07/2024 [facility] Encounter for other orthopedic aftercare Z47.89 ; Encounter for change or removal of drains Z48.03 and Arthrodesis status Z98.1 [facility] [address] [facility] [place] [address] [place] [address] 07/15/2024 [facility] Encounter for other orthopedic aftercare Z47.89 [facility] [address] [facility] [place] [address] [place] [address] 08/23/2024 [facility] Encounter for other orthopedic aftercare Z47.89 and Arthrodesis status Z98.1 [facility] [address] [place] [address] 06/03/2024 Michael Sprague [facility] [place] [address]/08/2024 SelHardik ToddirAftercare following surgery of the musculoskeletal system Z47.[address] [facility] [place] [address]/01/2025 Yoandy Burns Assessments Encounter Date Diagnosis (ICD [...] Order Date Cervical spine 2 v - 90118 07/15/2024 Cervical spine 2 v - 94392 08/23/2024 Surgery Scheduling 04/24/2024 Future Test Test Name Order Date Chest 2 views - 91473 04/24/2024 CBC 04/24/2024 PT/PTT 04/24/2024 BMP 04/24/2024 MRSA (Bilateral Nares) PCR 04/24/2024 EKG 04/24/2024 Medical (General) History Medical History History ICD Code NKDA Surgical History Surgery Date(Month/Year) C5-7 ACDF 06/03/2024
--- OUTSIDE RECORDS SUMMARY | 2025-05-20 06:35 | XMS_ITS | Patient Health Record ---
Author Organization [facility] Address [address] [address], [place] [address] Care Team Providers Care Electrical Fitter Name Role Phone Octavio Mars M.D. Primary Care Provider UnavailSanchez Rossi Unavailable [phone] Allergies No Known Allergies Reason For Referral [...] Status Risk Notes Problem Acquired hallux rigidus (7478257) Hallux rigidus, right foot (M20.21) ActiveconfirmedProblemAcquired hallux rigidus (5011035)Hallux rigidus, left foot (M20.22)Activeconfirmed Encounters Encounter Location Date Provider Diagnosis 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
--- NOTE | 2025-05-20 08:21 | PC.NURSE ---
Patient was consented by Joseph Argueta for peripheral nerve block. Consent confirmed by 2 RN's. Timeout performed at 0802. Patient placed on monitor and O2 per protocol. Patient positioned onto left side. Patient medicated by DURGA Argueta. Bedside ultrasound used to locate site. At 0806 popliteal nerve block started and completed at 0811. Patient tolerated well, voiced no complaints or concerns. Patient remains on the monitor and O2 until she will be taken to the OR.
[2025-05-20] MEDS: CEFAZOLIN SODIUM/DEXTROSE,ISO 2 GM/50 ML PIGGYBACK IV (08:37)
[2025-05-20] MEDS: BUPIVACAINE HCL 0.5% PF 50 MG/10 ML VIAL INJ (09:13)
--- NOTE | 2025-05-20 10:38 | P.ORON_ITS ---
Brief Operative Note Date of procedure: 05/20/25 Pre-op diagnosis general: Right hallux rigidus, gouty arthritis first metatarsal phalangeal joint Post-op diagnosis: same as pre-op Procedure: Procedure performed: Right first metatarsal phalangeal joint fusion Indications for procedure: Patient is a 54-year-old female with history of gout and is on allopurinol who has had several year history of worsening pain and dysfunction associated with her right first metatarsal phalangeal joint. X-rays revealed end-stage arthritis and her pain was daily and debilitating therefore she wished to undergo surgical correction and I recommended the above procedures. I reviewed all potential risks and benefits and all questions were answered to her satisfaction Intraoperative findings: Palpable osteophytes surrounding the first metatarsal phalangeal joint with significant amount of synovitis and inflammatory tissue surrounding the joint. Gouty tophi noted within the capsule as well as within the joint. There is full-thickness cartilage degeneration on both sides of the joint with only a scant amount of cartilage intact. Bone quality was relatively soft given patient's age and gender however good stable fixation was obtained. Procedure in detail: Patient was identified in pre op and consent was reviewed. Correct side and site were identified and marked. Patient received popliteal nerve block by the anesthesia team. Pre-op antibiotics were started. Patient was brought to OR suite and place on table in a supine position. General anesthesia was administered. Thigh tourniquet applied. Operative extremity was prepped and draped in usual sterile fashion. Formal time-out was performed and the foot/ankle were exsanguinated and tourniquet inflated. 10 cc of 0.5% Marcaine plain were injected as a standard first ray block to supplement her regional anesthesia. Incision created over dorsal aspect of the 1st MPJ. Bleeders coagulated. EHL protected throughout the procedure. Capsulotomy performed and McGlammry elevator inserted into 1st MPJ. There was a significant amount of synovitic tissue and gouty tophi within the capsule which was carefully excised. Guide Pin place in 1st metatarsal head. Conical reamers used on 1st metatarsal head to remove cartilage and subchondral bone. Guide pin removed. Conical reamers used on proximal phalanx in a similar manner. 2.0 mm drill used to on each side of the joint. The site was irrigated on pulse lavage to remove any remaining gouty tophi. Then 1 cc of Sparc bone allograft was packed into the joint/fusion site. Then a stab incision was placed on the medial aspect of the proximal phalanx base of the hallux and a guidepin was inserted through the stab incision and used to pin the joint in ideal position. Placement of the pin was checked under fluoroscopy then a 3.5 mm cannulated screw was inserted accordingly noting good bony apposition and compression at the joint surface. No drilling was used given the bone was soft. Next, a 3.[address] over the fusion site and temporarily fixed. Then instructor pilot holes were drilled for locking 3.5 mm screws which were measured and placed according to the manufactor?s standard directions. Again position was checked under fluoroscopy as well as on the table. Temporary fixation was removed and additional screws were placed. A sagittal saw was then used to remove any prominent bone on the medial aspect of the first metatarsal head and then was contoured with a hand rasp. Additional bone allograft was used to pack around the fusion site. The surgical site was irrigated with copious amounts of sterile saline. Absorbable deep sutures were used to close fascia. The tourniquet was dropped and a prompt hyperemic response was noted. A subcuticular stitch was used to close skin followed by martha. A dry sterile dressing consisting of Xeroform on the incisions followed by 4 x 4 gauze, ABDs, and Kerlix were applied. Multiple layers of cast padding were then applied to ensure all bony prominences were well-padded. A plaster posterior splint was then applied which was held in place by Ananda wraps. Capillary refill time to all digits was evaluated and had appropriate response. Patient tolerated the procedure and anesthesia well was transported to the recovery room with vital signs stable Postoperative plan: Discharge home under daughter's care Nonweightbearing right foot but patient may place small amount of weight onto the right heel for balance and transfers. Prescriptions were sent to her pharmacy using my office EMR Ice and elevation. Keep splint clean dry and intact until follow-up Follow-up in my office in 1 week Implants: Medline 3.5 mm interfrag screw and 3.5 mm locking 1st MPJ fusion plate Anesthesia: regional and General-LMA Surgeon: Sanchez Ordaz Representative Phlebotomy Services: Maddi Maldonado Estimated blood loss (mL): 25 Tourniquet time (min): 75 Pathology: other (Bone and capsule with gouty tophi to pathology) Condition: stable Disposition: PACU
--- NOTE | 2025-05-20 11:08 | XR_ITS ---
The [address] [address] Patient Name: SEVERINO GREER MRN: [id number] date: 1970 Sex: F Assigned Patient Location: [facility] Current Patient Location: Accession/Order Number: [id number] Exam Date: 05/20/2025 11:00 Report Date: 05/20/2025 12:51 At the request of: EUN DONOVAN DPTrang Procedure: XR foot RT min 3V RIGHT FOOT - 3 views CLINICAL DATA: Follow-up first metatarsal phalangeal joint fusion. COMPARISON: 05/02/2025 AP, lateral and oblique views were obtained. There is artifact from a splint . There is a new dorsal plate traversing the first metatarsal phalangeal joint along with multiple screws. There has been interval resection of some the bony hypertrophy at the first metatarsal head. There is no obvious acute fracture or dislocation with the splint artifact. There are no significant soft tissue abnormalities. There are medial skin martha at the surgery site. XR/XR foot RT min 3V IMPRESSION: POSTOPERATIVE CHANGES AT THE FIRST METATARSAL PHALANGEAL JOINT. Impression dictated by: Nubia Batista M.D. 05/20/2025 12:51 PM Dictation Location: [place] [address] Electronically authenticated by: [id number] Y Date: 05/20/2025 12:51
== END 2025-05-20 11:55 | disposition home or self-care (01) ==
PROVIDERS: Anesthesiology; PCP Family Medicine; Visit Provider Podiatrist Foot & Ankle Surgery
PROC: (CPT 1480; principal; 2025-05-20 08:10)
DX: M20.21 Hallux rigidus, right foot (principal); M1A.9XX1 Chronic gout, unspecified, with tophus (tophi); I10 Essential (primary) hypertension
CPT/HCPCS: 28750; 36415; 64445; 73630; 76000; 82948; 85025; C1713; J0665; J0690; J1100; J1885; J2250; J2371; J2405; J2704; J2795; J3010